=== PATIENT | female | born 1960 | race Caucasian/White ===

== ENCOUNTER 2021-07-09 12:46 | Inpatient (IN) | payer BC ==
[2021-07-09] MEDS ORDERED: SODIUM CHLORIDE 0.9% 1,000 ML IV STA (13:14)
[2021-07-09] MEDS ORDERED: VANCOMYCIN IV PER PHARMACY 1 EACH MISC MISCELLANE PRN (13:35)
--- NOTE | 2021-07-09 13:37 | ED ---
General Adult HPI - General Chief complaint: Extremity Injury, Lower Stated complaint: hypertensive, leg wound Time Seen by Provider: 07/09/21 13:01 Source: patient, EMS, RN notes reviewed Mode of arrival: EMS Limitations: no limitations - History of Present Illness Initial comments: Patient's a 61-year-old female presented to the emergency room today with a chief complaint of increased redness, swelling to the right lower extremity. She does admit to a wound that started approximately 2 weeks ago. She states that she delivered wrapped. She does admit that there secondary formed a blister. She states there is some redness. Patient denies any fever. She denies any complaints. She states she's been some drainage to the wound. Patient denies any recent fever, chills, shortness of breath, chest pain, back pain, abdominal pain, headaches or visual changes, or any other complaints. - Related Data Home Medications Medication Instructions Recorded Confirmed ALPRAZolam [Xanax] 0.25 mg PO DAILY 06/10/14 06/10/14 Albuterol Nebulized [Ventolin 1 inhalation INHALATION Q4HR PRN 06/10/14 06/10/14 Nebulized] Esomeprazole Magnesium [NexIUM] 40 mg PO DAILY 06/10/14 06/10/14 Insulin Glargine,Hum.rec.anlog 56 units INJ AC-BRKFST 06/10/14 06/10/14 [Lantus Solostar] Insulin Regular, Human [Humulin R] 20 unit INJ HS 06/10/14 06/10/14 Levothyroxine Sodium 175 mcg PO DAILY 06/10/14 06/10/14 Olmesartan/Hydrochlorothiazide 1 each PO DAILY 06/10/14 06/10/14 [Benicar Hct 40-12.5 mg Tablet] Tiotropium 18 Mcg/Puff [Spiriva] 1 puff INHALATION Q4HR PRN 06/10/14 06/10/14 glyBURIDE [Diabeta] 5 mg PO AC-BRKFST 06/10/14 06/10/14 hydroCHLOROthiazide [Hydrodiuril] 25 mg PO DAILY 06/10/14 06/10/14 Allergies Allergy/AdvReac Type Severity Reaction Status Date / Time amlodipine besylate Allergy Rash/Hives Verified 06/10/14 07:46 [From [facility]] azithromycin [From Zithromax] Allergy Unknown Verified 06/10/14 07:18 clindamycin Allergy Unknown Verified 06/10/14 07:18 codeine Allergy Nausea & Verified 06/10/14 06:27 Vomiting doxycycline Allergy Rash/Hives Verified 06/10/14 07:46 hydrochlorothiazide Allergy Rash/Hives Verified 06/10/14 07:46 [From Hyzatn] levofloxacin [From Levaquin] Allergy Unknown Verified 06/10/14 07:18 losartan potassium Allergy Unknown Verified 06/10/14 07:18 [From Hyzaar] Penicillins Allergy Rash/Hives Verified 06/10/14 03:28 Sulfa (Sulfonamide Allergy Unknown Verified 06/10/14 07:18 Antibiotics) Review of Systems ROS Statement: Those systems with pertinent positive or pertinent negative responses have been documented in the HPI. ROS Other: All systems not noted in ROS Statement are negative. Past Medical History Past Medical History: Asthma, Diabetes Mellitus, Fibromyalgia, GERD/Reflux, Hypertension, Thyroid Disorder History of Any Multi-Drug Resistant Organisms: MRSA Date of last positivie culture/infection: 2012 MDRO Source:: abd Past Surgical History: Appendectomy Additional Past Surgical History / Comment(s): bowel surgery, D&C, colostomy with reversile Past Psychological History: Anxiety Past Alcohol Use History: Rare Past Drug Use History: None Reported General Exam - General Exam Comments Initial Comments: General: The patient is awake and alert, in no distress, and does not appear acutely ill. Eye: extra-ocular movements are intact. There is normal conjunctiva bilaterally. No signs of icterus. Ears, nose, mouth and throat: There are moist mucous membranes and no oral lesions. Neck: The neck is supple Cardiovascular: There is a regular rate and rhythm. No murmur, rub or gallop is appreciated. Respiratory: respirations are non-labored, breath sounds are equal. Musculoskeletal: Normal ROM, no tenderness. Strength 5/5. Sensation intact. Pulses equal bilaterally 2+. Neurological: A&O x 3. CN II-XII intact, There are no obvious motor or sensory deficits. Coordination appears grossly intact. Speech is normal. Skin: Patient does have area of redness and swelling to the right lower extremity. Is circumferential. There is a blood blister next to a scabbed eschar wound measures approximately 5 cm across. No active drainage. Psychiatric: Cooperative, appropriate mood & affect, normal judgment. Limitations: no limitations Course Vital Signs 07/09/21 13:00 Temperature 98.6 F Pulse Rate 92 Respiratory 18 Rate Blood Pressure 185/95 O2 Sat by Pulse 96 Oximetry Medical Decision Making - Medical Decision Making X-ray reviewed is negative for any evidence of an osteomyelitis. Patient's labs been reviewed does show potassium 3.3. Patient given potassium supplement here in the emergency room. Patient was sent in by family physician for admission for cellulitis and diabetic wound. Patient started on Rocephin, think my severe in emergency room. Case discussed with admitting physician. Patient be admitted. She is aware the plan states understand. - Lab Data Result diagrams: 07/09/21 14:04 07/09/21 14:04 Lab Results 07/09/21 07/09/21 07/09/21 Range/Units 14:04 14:04 14:04 WBC 10.8 H (3.8-10.6) k/uL RBC 5.38 (3.80-5.40) m/uL Hgb 15.8 (11.4-16.0) gm/dL Hct 45.4 (34.0-46.0) % MCV 84.5 (80.0-100.0) fL MCH 29.3 (25.0-35.0) pg MCHC 34.7 (31.0-37.0) g/dL RDW 14.1 (11.5-15.5) % Plt Count 348 (150-450) k/uL MPV 8.1 Neutrophils % 83 % Lymphocytes % 12 % Monocytes % 2 % Eosinophils % 2 % Basophils % 1 % Neutrophils # 9.0 H (1.3-7.7) k/uL Lymphocytes # 1.2 (1.0-4.8) k/uL Monocytes # 0.2 (0-1.0) k/uL Eosinophils # 0.2 (0-0.7) k/uL Basophils # 0.1 (0-0.2) k/uL Sodium 137 (137-145) mmol/L Potassium 3.3 L (3.5-5.1) mmol/L Chloride 100 (98-107) mmol/L Carbon Dioxide 25 (22-30) mmol/L Anion Gap 12 mmol/L BUN 14 (7-17) mg/dL Creatinine 0.73 (0.52-1.04) mg/dL Est GFR (CKD-EPI)AfAm >90 (>60 ml/min/1.73 sqM) Est GFR (CKD-EPI)NonAf 89 (>60 ml/min/1.73 sqM) Glucose 144 H (74-99) mg/dL Plasma Lactic Acid Shen 1.2 (0.7-2.0) mmol/L Calcium 9.1 (8.4-10.2) mg/dL Disposition Clinical Impression: Cellulitis, Hypokalemia Disposition: ADMITTED IP TO THIS HOSP Condition: Stable Is patient prescribed a controlled substance at d/c from ED?: No Referrals: Marbin Serrano MD [Primary Care Provider] - 1-2 days Time of Disposition: 15:08
[2021-07-09] MEDS ORDERED: VANCOMYCIN 2,000 MG in SODIUM CHLORIDE 0.9% 500 ML 500 ML IVPB STA (13:41)
--- NOTE | 2021-07-09 14:05 | XR ---
EXAMINATION TYPE: XR tibia fibula RT DATE OF EXAM: 07/09/2021 COMPARISON: NONE HISTORY: Nonhealing wound TECHNIQUE: Two views are submitted. FINDINGS: The osseous structures are intact. The joint spaces are preserved. Diffuse soft tissue edema. Diffu se osteopenia. IMPRESSION: 1. No acute osseous abnormality. Soft tissue edema.
[2021-07-09 14:34] LABS: Basophils # (A) 0.1 k/uL (0-0.2); Basophils % (A) 1 %; Eosinophils # (A) 0.2 k/uL (0-0.7); Eosinophils % (A) 2 %; HCT 45.4 % (34.0-46.0); HGB 15.8 gm/dL (11.4-16.0); Lymphocytes # (A) 1.2 k/uL (1.0-4.8); Lymphocytes % (A) 12 %; MCH 29.3 pg (25.0-35.0); MCHC 34.7 g/dL (31.0-37.0); MCV 84.5 fL (80.0-100.0); Mean Platelet Volume 8.1; Monocytes # (A) 0.2 k/uL (0-1.0); Monocytes % (A) 2 %; Neutrophils % (A) 83 %; Platelet Count 348 k/uL (150-450); RBC 5.38 m/uL (3.80-5.40); RDW 14.1 % (11.5-15.5); WBC 10.8 k/uL (3.8-10.6)
[2021-07-09] MEDS ORDERED: NALOXONE 0.4 MG/ML 1 ML VIAL IV PRN (14:37)
[2021-07-09 14:52] LABS: African American GFR (CKD) >90 (>60 ml/min/1.73 sqM); Anion Gap 12 mmol/L; Blood Urea Nitrogen 14 mg/dL (7-17); Calcium 9.1 mg/dL (8.4-10.2); Carbon Dioxide 25 mmol/L (22-30); Chloride 100 mmol/L (98-107); Glucose 144 mg/dL (74-99); Non-African American GFR(CKD) 89 (>60 ml/min/1.73 sqM); Potassium 3.3 mmol/L (3.5-5.1); Sodium 137 mmol/L (137-145)
[2021-07-09] MEDS: ONDANSETRON 4 MG/2 ML VIAL IVP PRN (15:03)
[2021-07-09] MEDS ORDERED: POTASSIUM CHLORIDE ER 20 MEQ TAB.ER PO STA (15:06)
[2021-07-09] MEDS ORDERED: diphenhydrAMINE 25 MG CAP PO PRN (16:59)
[2021-07-09] MEDS ORDERED: ALBUTEROL NEBULIZED 2.5 MG/3 ML INHALATION PRN (16:59)
--- NOTE | 2021-07-09 17:12 | P.HPIM ---
<Jordan Hummel - Last Filed: 07/09/21 16:57> History of Present Illness H&P Date: 07/09/21 History of Presenting Illness: Patient is a 61-year-old female with a past medical history of asthma, hypertension, hypothyroidism, and insulin-dependent diabetes mellitus type 2. She presented to the emergency department with a chief complaint of right lower extremity wounds. Patient reports developing ulceration to right lower extremity approximately one month ago. She reports she was seen by her doctor place on an antibiotic and this seemed to improve, however over the past 2 weeks she has developed a second ulceration surrounded by significant redness and swelling. Patient states that she returned to her PCP and was instructed to come to the ER for further management. In addition to these ulcerations patient does report a subjective low-grade temp and hot flashes. Patient denies having any headache, lightheadedness, dizziness, chest pain, palpitations, shortness of breath, dyspnea with exertion, or experiencing any numbness/tingling/weakness in her extremities. She denies history of DVTs or any clotting disorders. In the emergency department patient was found to have mild leukocytosis with WBC count of 10.8 and an x-ray of right tib-fib negative for acute osseous abnormality showing no signs of osteomyelitis. Patient admitted under our services with consultation to vascular surgery and wound care. Review of systems: Pertinent positives and negatives as discussed in HPI, a complete review of systems was performed and all other systems are negative. Physical exam: Vital signs reviewed and stable. General: Nontoxic, no distress and appears stated age. Derm: Skin warm and dry, normal coloration for ethnicity. Necrotic Ulcerations right lower extremity with surrounding erythema and edema Head: Atraumatic, normocephalic and symmetric. Eyes: EOMs intact, no lid lag, and anicteric sclera Mouth: no lip lesions, mucus membranes moist Cardiovascular: regular rate and rhythm with normal S1S2, no murmur, positive posterior tibial pulses bilaterally, and cap refill < 2 seconds. Lungs: Respirations even, regular, and unlabored on room air. Lungs CTA bilater ally, no rhonchi, no rales, no wheezing, and no accessory muscle usage. Abdominal: soft, nontender to palpation, no guarding, no appreciable organomegaly Ext: ROM intact. No gross muscle atrophy, no edema, no contractures Neuro: Speech clear, face symmetrical and CN II-XII grossly intact with no noted focal neuro deficits Psych: Alert and oriented to person, place, time, and situation. Appropriate and pleasant affect. Assessment and Plan of Care: Ulcerations with surrounding cellulitis to right lower extremity, suspected venous insufficiency Bilateral lower extremity Dopplers to be completed Wound care IV antibiotics with vancomycin pending wound cultures. Consult to vascular surgery Wound cultures Hypokalemia Replaced, we will continue to monitor closely with repeat a.m. labs. Hypertension Monitor vital signs and continue daily medication regimen. Insulin-dependent diabetes mellitus type 2 Glycemic protocol with NovoLog sliding scale. Continue daily medication regimen with fixed dose and long acting. Hypothyroidism Continue daily medication regimen with levothyroxine. The patient is admitted with an anticipated greater than 2 midnight stay for evaluation of ulcerations of right lower extremity with surrounding cellulitis.. CODE STATUS: Full code DVT prophylaxis: Heparin Discussed with: Patient Anticipated discharge date: Clinical course to determine Anticipated discharge place: Home A total of 45 minutes was spent on the care of this complex patient more than 50% of the time was spent in counseling and care coordination. Past Medical History Past Medical History: Asthma, Diabetes Mellitus, Fibromyalgia, GERD/Reflux, Hypertension, Thyroid Disorder History of Any Multi-Drug Resistant Organisms: MRSA Date of last positivie culture/infection: 2012 MDRO Source:: abd Past Surgical History: Appendectomy Additional Past Surgical History / Comment(s): bowel surgery, D&C, colostomy with reversile Past Psychological History: Anxiety Past Alcohol Use History: Rare Past Drug Use History: None Reported Medications and Allergies Home Medications Medication Instructions Recorded Confirmed Type Albuterol Nebulized [Ventolin 3 ml INHALATION RT-Q4H PRN 06/10/14 07/09/21 History Nebulized] Tiotropium 18 Mcg/Puff [Spiriva] 1 puff INHALATION RT-DAILY 06/10/14 07/09/21 History hydroCHLOROthiazide [Hydrodiuril] 25 mg PO DAILY 06/10/14 07/09/21 History Albuterol Inhaler [Ventolin Hfa 1 puff INHALATION RT-QID PRN 07/09/21 07/09/21 History Inhaler] Chlorpheniramine Maleate 4 mg PO Q4H PRN 07/09/21 07/09/21 History [Chlor-Trimeton] Insulin Aspart [NovoLOG Flexpen] 20 units SQ AC-TID 07/09/21 07/09/21 History Insulin Detemir [Levemir Flextouch 70 units SQ HS 07/09/21 07/09/21 History Pen] Levothyroxine Sodium [Synthroid] 137 mcg PO DAILY 07/09/21 07/09/21 History diphenhydrAMINE [Benadryl] 25 mg PO Q4H PRN 07/09/21 07/09/21 History Allergies Allergy/AdvReac Type Severity Reaction Status Date / Time amlodipine besylate Allergy Rash/Hives Verified 07/09/21 15:59 [From Norvasc] azithromycin [From Zithromax] Allergy Unknown Verified 07/09/21 15:59 clindamycin Allergy Unknown Verified 07/09/21 15:59 codeine Allergy Nausea & Verified 07/09/21 15:59 Vomiting doxycycline Allergy Rash/Hives Verified 07/09/21 15:59 hydrochlorothiazide Allergy Rash/Hives Verified 07/09/21 15:59 [From Hyzaar] levofloxacin [From Levaquin] Allergy Unknown Verified 07/09/21 15:59 losartan potassium Allergy Unknown Verified 07/09/21 15:59 [From Hyzaar] Penicillins Allergy Rash/Hives Verified 07/09/21 15:59 Sulfa (Sulfonamide Allergy Unknown Verified 07/09/21 15:59 Antibiotics) Physical Exam Vitals: Vital Signs Temp Pulse Resp BP Pulse Ox 07/09/21 15:31 94 18 177/116 93 L 07/09/21 13:00 98.6 F 92 18 185/95 96 Intake and Output 07/09/21 07/09/21 07/09/21 06:59 14:59 22:59 Other: Weight 108.862 kg Results CBC & Chem 7: 07/09/21 14:04 07/09/21 14:04 Labs: Abnormal Lab Results - Last 24 Hours (Table) 07/09/21 07/09/21 Range/Units 14:04 14:04 WBC 10.8 H (3.8-10.6) k/uL Neutrophils # 9.0 H (1.3-7.7) k/uL Potassium 3.3 L (3.5-5.1) mmol/L Glucose 144 H (74-99) mg/dL <Ana Bolanos - Last Filed: 07/09/21 18:37> History of Present Illness Patient seen and evaluated by me independently. Patient was also seen by leroy SPIVEY he original author of this note. I am in agreement with the subjective, physical exam, and assessment and plan as documented with the addition/changes of my exam and assessment below. Gen: awake, alert HEENT: normocephalic, atraumatic, good hearing acuity, moist mucous membranes Resp: good air exchange, breathing comfortably with no accessory muscle use CVS: good distal perfusion x 4, GI: soft, NTTP, ND : no SPT, no CVAT, guaman catheter not present MSK: no pitting edema, no clubbing, 2 vascular insufficiency ulcers approximately 3 x 2 cm wide with eschar Neuro: non-focal, moving all extremities Psych: cooperative, euthymic mood Venous insufficiency ulcers of the right lower extremity Cellulitis Hypertension Hyperlipidemia Diabetes type 2 Plan: Lower extremity duplex Vancomycin, ceftriaxone Vascular surgery consult Wound care consult Follow labs ESR, CRP in the morning Follow-up A1c, TSH, lipid panel We'll start atorvastatin tomorrow after lipid panel drawn Low-dose sliding scale insulin Physical Exam Osteopathic Statement: *. No significant issues noted on an osteopathic structural exam other than those noted in the History and Physical/Consult. Vitals: Vital Signs Temp Pulse Resp BP Pulse Ox 07/09/21 17:55 97.6 F 91 18 197/101 94 L 07/09/21 17:37 80 18 07/09/21 17:29 77 16 07/09/21 15:31 94 18 177/116 93 L 07/09/21 13:00 98.6 F 92 18 185/95 96 Intake and Output 07/09/21 07/09/21 07/09/21 06:59 14:59 22:59 Other: Weight 108.862 kg Results CBC & Chem 7: 07/09/21 14:04 07/09/21 14:04 Labs: Abnormal Lab Results - Last 24 Hours (Table) 07/09/21 07/09/21 07/09/21 Range/Units 14:04 14:04 17:51 WBC 10.8 H (3.8-10.6) k/uL Neutrophils # 9.0 H (1.3-7.7) k/uL Potassium 3.3 L (3.5-5.1) mmol/L Glucose 144 H (74-99) mg/dL POC Glucose (mg/dL) 198 H (75-99) mg/dL
[2021-07-09] MEDS ORDERED: ACETAMINOPHEN TAB 325 MG TAB PO PRN (17:14)
[2021-07-09] MEDS: ALBUTEROL NEBULIZED 2.5 MG/3 ML INHALATION PRN ×2 (17:29→22:13)
[2021-07-09 17:54] LABS: Glucose,Whole Blood 198 mg/dL (75-99)
[2021-07-09] MEDS: INSULIN ASPART (NovoLOG) 100 UNIT/ML VIAL SQ SCH ×3 (18:18→22:22)
[2021-07-09] MEDS: HYDROcodone/APAP 5-325MG 1 EACH TAB PO PRN (19:58)
[2021-07-09 22:19] LABS: Glucose,Whole Blood 86 mg/dL (75-99)
[2021-07-09] MEDS: INSULIN DETEMIR (LEVEMIR) 100 UNIT/ML SYR SQ SCH (22:23)
[2021-07-10] MEDS: HYDROcodone/APAP 5-325MG 1 EACH TAB PO PRN ×4 (00:40→20:37)
[2021-07-10] MEDS: cloNIDine HCL 0.2 MG TAB PO PRN (00:41)
[2021-07-10] MEDS: HEPARIN SODIUM,PORCINE/PF 5,000 UNIT/0.5 ML SYRINGE SQ SCH ×3 (00:41→15:54)
[2021-07-10] MEDS: ONDANSETRON 4 MG/2 ML VIAL IVP PRN (00:44)
[2021-07-10] MEDS: ALBUTEROL NEBULIZED 2.5 MG/3 ML INHALATION PRN (02:55)
[2021-07-10] MEDS: VANCOMYCIN 1,750 MG in SODIUM CHLORIDE 0.9% 500 ML 500 ML IVPB SCH ×2 (03:41→16:23)
[2021-07-10] MEDS: LEVOTHYROXINE 137 MCG TAB PO SCH (06:12)
[2021-07-10 06:36] LABS: Basophils % (A) 0 %; Eosinophils # (A) 0.3 k/uL (0-0.7); Eosinophils % (A) 3 %; HCT 45.4 % (34.0-46.0); HGB 14.4 gm/dL (11.4-16.0); Lymphocytes # (A) 1.3 k/uL (1.0-4.8); Lymphocytes % (A) 11 %; MCHC 31.7 g/dL (31.0-37.0); MCV 88.3 fL (80.0-100.0); Mean Platelet Volume 7.6; Monocytes # (A) 0.4 k/uL (0-1.0); Monocytes % (A) 3 %; Neutrophils # (A) 9.8 k/uL (1.3-7.7); Neutrophils % (A) 82 %; Platelet Count 337 k/uL (150-450); RBC 5.14 m/uL (3.80-5.40); RDW 13.9 % (11.5-15.5)
[2021-07-10 07:03] LABS: Glucose,Whole Blood 53 mg/dL (75-99)
[2021-07-10] MEDS: IPRATROPIUM 0.5 MG/2.5 ML NEBU INHALATION SCH ×4 (07:09→19:40)
[2021-07-10 07:21] LABS: Glucose,Whole Blood 81 mg/dL (75-99)
[2021-07-10] MEDS: hydroCHLOROthiazide 25 MG TAB PO SCH (08:03)
[2021-07-10 08:45] LABS: Glucose,Whole Blood 81 mg/dL (75-99)
[2021-07-10] MEDS: INSULIN ASPART (NovoLOG) 100 UNIT/ML VIAL SQ SCH ×7 (08:54→20:37)
[2021-07-10] MEDS: HYDROmorphone 0.5 MG/0.5 ML SYRINGE IVP PRN (09:57)
[2021-07-10 11:51] LABS: Glucose,Whole Blood 82 mg/dL (75-99)
--- NOTE | 2021-07-10 11:52 | P.PN ---
<Jordan Hummel - Last Filed: 07/10/21 11:40> Subjective Progress Note Date: 07/10/21 Hospital course: Patient is a 61-year-old female with a past medical history of asthma, hyperte nsion, hypothyroidism, and insulin-dependent diabetes mellitus type 2. She presented to the emergency department with a chief complaint of right lower extremity wounds. Patient reports developing ulceration to right lower extremity approximately one month ago. She reports she was seen by her doctor place on an antibiotic and this seemed to improve, however over the past 2 weeks she has developed a second ulceration surrounded by significant redness and swelling. Patient states that she returned to her PCP and was instructed to come to the ER for further management. In addition to these ulcerations patient does report a subjective low-grade temp and hot flashes. Patient denies having any headache, lightheadedness, dizziness, chest pain, palpitations, shortness of breath, dyspnea with exertion, or experiencing any numbness/tingling/weakness in her extremities. She denies history of DVTs or any clotting disorders. In the emergency department patient was found to have mild leukocytosis with WBC count of 10.8 and an x-ray of right tib-fib negative for acute osseous abnormality sadie wing no signs of osteomyelitis. Patient admitted under our services with consultation to vascular surgery and wound care. Being treated with IV antibiotics vancomycin and Rocephin. Physical exam: Patient was seen and fully evaluated at the bedside this morning. Bilateral lower extremity Dopplers were being completed during time of assessment. Patient reports pain is not controlled with [place] at this time. Additional orders placed for Dilaudid 0.5 mg every 6 hours for additional assistance with pain management. Patient denies having any further complaints at this time including headache, lightheadedness, chest pain, palpitations, shortness of breath, abdominal pain, nausea, or vomiting. Awaiting further recommendations from vascular surgery at this time. Wound cultures were obtained and sent to lab for analysis, awaiting results. Vital signs reviewed and stable. General: Nontoxic, no distress and appears stated age. Derm: Skin warm and dry, normal coloration for ethnicity. Necrotic Ulcerations right lower extremity carrillo and right lateral lower carrillo with surrounding erythema and edema Head: Atraumatic, normocephalic and symmetric. Eyes: EOMs intact, no lid lag, and anicteric sclera Mouth: no lip lesions, mucus membranes moist Cardiovascular: regular rate and rhythm with normal S1S2, no murmur, positive posterior tibial pulses bilaterally, and cap refill < 2 seconds. Lungs: Respirations even, regular, and unlabored on room air. Lungs CTA bilaterally, no rhonchi, no rales, no wheezing, and no accessory muscle usage. Abdominal: soft, nontender to palpation, no guarding, no appreciable organomegaly Ext: ROM intact. No gross muscle atrophy, BLE edema non pitting worse on right venous discoloration. Neuro: Speech clear, face symmetrical and CN II-XII grossly intact with no noted focal neuro deficits Psych: Alert and oriented to person, place, time, and situation. Appropriate and pleasant affect. Assessment and Plan of Care: Venous Insufficiency Ulcerations with surrounding cellulitis to right lower extremity Bilateral lower extremity Dopplers completed, awaiting results Wound care IV antibiotics with vancomycin and Rocephin pending wound cultures. Consult to vascular surgery Wound cultures Hypokalemia Replaced, we will continue to monitor closely with repeat a.m. labs. Hypertension Monitor vital signs and continue daily medication regimen. Insulin-dependent diabetes mellitus type 2 Glycemic protocol with NovoLog sliding scale. Continue daily medication regimen with fixed dose and long acting. Hypothyroidism Continue daily medication regimen with levothyroxine. CODE STATUS: Full code DVT prophylaxis: Heparin Discussed with: Patient Anticipated discharge date: Clinical course to determine Anticipated discharge place: Home A total of 45 minutes was spent on the care of this complex patient more than 50% of the time was spent in counseling and care coordination. Objective - Vital Signs Vital signs: Vital Signs Temp 98.1 F 07/10/21 06:20 Pulse 85 07/10/21 08:02 Resp 16 07/10/21 07:20 BP 185/92 07/10/21 08:02 Pulse Ox 95 07/10/21 06:20 Intake & Output 07/09/21 07/10/21 07/10/21 18:59 06:59 18:59 Intake Total 100 Balance 100 Weight 108.862 kg 108.862 kg Intake: Oral 100 Other: # Voids 1 - Labs CBC & Chem 7: 07/10/21 05:45 07/09/21 14:04 Labs: Abnormal Lab Results - Last 24 Hours (Table) 07/09/21 07/09/21 07/09/21 Range/Units 14:04 14:04 14:04 WBC 10.8 H (3.8-10.6) k/uL Neutrophils # 9.0 H (1.3-7.7) k/uL ESR (0-30) mm/Hr Potassium 3.3 L (3.5-5.1) mmol/L Glucose 144 H (74-99) mg/dL POC Glucose (mg/dL) (75-99) mg/dL C-Reactive Protein 7.6 H (<1.0) mg/dL 07/09/21 07/09/21 07/10/21 Range/Units 17:51 18:51 05:45 WBC 12.0 H (3.8-10.6) k/uL Neutrophils # 9.8 H (1.3-7.7) k/uL ESR 50 H (0-30) mm/Hr Potassium (3.5-5.1) mmol/L Glucose (74-99) mg/dL POC Glucose (mg/dL) 198 H (75-99) mg/dL C-Reactive Protein (<1.0) mg/dL 07/10/21 Range/Units 06:52 WBC (3.8-10.6) k/uL Neutrophils # (1.3-7.7) k/uL ESR (0-30) mm/Hr Potassium (3.5-5.1) mmol/L Glucose (74-99) mg/dL POC Glucose (mg/dL) 53 L (75-99) mg/dL C-Reactive Protein (<1.0) mg/dL Microbiology - Last 24 Hours (Table) 07/09/21 18:29 Gram Stain - Preliminary Leg - Right Wound Culture - Preliminary 07/09/21 18:29 Anaerobic Culture - Preliminary Leg - Right <Ana Bolanos - Last Filed: 07/10/21 18:32> Subjective I reviewed the documentation as provided by the PATRIC above, who is the original author of this note. I agree with the documented assessment and plan, with the following changes: None Objective - Vital Signs Vital signs: Vital Signs Temp 98.8 F 07/10/21 11:18 Pulse 89 07/10/21 15:41 Resp 18 07/10/21 11:18 BP 171/98 07/10/21 11:18 Pulse Ox 92 L 07/10/21 11:18 Intake & Output 07/09/21 07/10/21 07/10/21 18:59 06:59 18:59 Intake Total 100 2049 Balance 100 2049 Weight 108.862 kg 108.862 kg 108.862 kg Intake: Intake, IV Titration 1450 Amount Sodium Chloride 0.9% 1, 900 000 ml @ 75 mls/hr IV . [id number] STA Rx#:[id number] Vancomycin 1,750 mg In 500 Sodium Chloride 0.9% 500 ml 500 ml @ 167 mls/hr IVPB Q12H NIKI Rx#: [id number] cefTRIAXone 1 gm In 50 Sodium Chloride 0.9% 50 ml @ 100 mls/hr IVPB Q24HR NIKI Rx#:[id number] Oral 100 600 Other: # Voids 1 5 - Labs CBC & Chem 7: 07/10/21 05:45 07/10/21 05:45 Labs: Abnormal Lab Results - Last 24 Hours (Table) 07/09/21 07/09/21 07/10/21 Range/Units 14:04 18:51 05:45 WBC (3.8-10.6) k/uL Neutrophils # (1.3-7.7) k/uL ESR 50 H (0-30) mm/Hr Potassium (3.5-5.5) mmol/L Anion Gap (4.00-12.00) mmol/L Glucose (70-110) mg/dL POC Glucose (mg/dL) (75-99) mg/dL Hemoglobin A1c 7.7 H (4.0-6.0) % Calcium (8.7-10.3) mg/dL C-Reactive Protein 7.6 H (<1.0) mg/dL 07/10/21 07/10/21 07/10/21 Range/Units 05:45 05:45 06:52 WBC 12.0 H (3.8-10.6) k/uL Neutrophils # 9.8 H (1.3-7.7) k/uL ESR (0-30) mm/Hr Potassium 3.3 L (3.5-5.5) mmol/L Anion Gap 17.10 H (4.00-12.00) mmol/L Glucose 61 L (70-110) mg/dL POC Glucose (mg/dL) 53 L (75-99) mg/dL Hemoglobin A1c (4.0-6.0) % Calcium 8.3 L (8.7-10.3) mg/dL C-Reactive Protein (<1.0) mg/dL 07/10/21 Range/Units 16:54 WBC (3.8-10.6) k/uL Neutrophils # (1.3-7.7) k/uL ESR (0-30) mm/Hr Potassium (3.5-5.5) mmol/L Anion Gap (4.00-12.00) mmol/L Glucose (70-110) mg/dL POC Glucose (mg/dL) 167 H (75-99) mg/dL Hemoglobin A1c (4.0-6.0) % Calcium (8.7-10.3) mg/dL C-Reactive Protein (<1.0) mg/dL Microbiology - Last 24 Hours (Table) 07/09/21 14:04 Blood Culture - Preliminary Blood No Growth after 24 hours 07/09/21 18:29 Gram Stain - Preliminary Leg - Right Wound Culture - Preliminary 07/09/21 18:29 Anaerobic Culture - Preliminary Leg - Right
--- NOTE | 2021-07-10 12:16 | US ---
EXAMINATION TYPE: US venous doppler duplex LE BI DATE OF EXAM: 07/10/2021 9:25 AM COMPARISON: 03/24/2014 CLINICAL HISTORY: venous insufficiency, ulcers. SIDE PERFORMED: Bilateral TECHNIQUE: The lower extremity deep venous system is examined utilizing real time linear array sonog ashley with graded compression, doppler sonography and color-flow sonography. VESSELS IMAGED: Common Femoral Vein Deep Femoral Vein Greater Saphenous Vein * Femoral Vein Popliteal Vein Small Saphenous Vein * Proximal Calf Veins (* superficial vessels) Very difficult exam due to patient body habitus, limited mobility, and patients pain. Right Leg: Negative for DVT Left Leg: Negative for DVT IMPRESSION: 1. Bilateral lower extremity ultrasound negative for deep venous thrombosis
--- NOTE | 2021-07-10 12:34 | P.CONS ---
History of Present Illness - Reason for Consult Consult date: 07/10/21 wound care - History of Present Illness This is a 61-year-old patient being seen by wound care on [address] for a nonhealing ulceration to the right lower extremity. Patient states the ulcerations have been there for approximately 2 months. She states that they begin to heal and then reopened. Patient has 2 ulcerations to the anterior medial aspect of the right lower extremity distal. The ulcerations measures combined approximately 4 x 8 x 0.1 cm. There is an eschar cap to the ulceration with no granulation seen within the wound bed. The periwound shows erythema. Patient is scheduled for a possible surgical debridement today with vascular surgery. Past medical history is significant for venous insufficiency, diabetes, asthma, fibromyalgia, GERD, hypertension, hypothyroidism. Patient is an every day smoker. Review Of Systems: Constitutional: No fever, no chills, no night sweats. No weight change. No weakness, fatigue or lethargy. No daytime sleepiness. Integumentary:reports wounds, no lesions. No rash or pruritus. No unusual bruising. No change in hair or nails. Physical exam: General Appearance: Alert, cooperative, no distress, appears stated age. Skin: See HPI all other Skin color, texture, tugor normal, no rashes or lesions. Neurologic: Alert oriented x3 Assessment: 1. Chronic hypertension with venous inserted deficiency with a ulceration to the right lower extremity 2. Diabetes a skin ulcer 3. Nicotine dependence Plan: 1. Apply Santyl, saline moistened gauze, dry gauze, rolled gauze secured with paper tape. Wrap with Rm wrap for compression. Start dressings after assessment by vascular surgery. If a surgical debridement is planned start dressings postop day 1. Patient would benefit from advanced wound care and outpatient setting. We'll be happy to see her upon discharge. Thank you for the consultation any questions please contact the wound care center DNP note has been reviewed and discussed with Dr. Sanz and the impression and plan of care has been directed as dictated. Past Medical History Past Medical History: Asthma, Diabetes Mellitus, Fibromyalgia, GERD/Reflux, Hypertension, Thyroid Disorder History of Any Multi-Drug Resistant Organisms: MRSA Year Discovered:: 2012 MDRO Source:: abd Past Surgical History: Appendectomy Additional Past Surgical History / Comment(s): bowel surgery, D&C, colostomy with reversile Smoking Status: Current some day smoker, Never smoker Medications and Allergies Home Medications Medication Instructions Recorded Confirmed Type Albuterol Nebulized [Ventolin 3 ml INHALATION RT-Q4H PRN 06/10/14 07/09/21 History Nebulized] Tiotropium 18 Mcg/Puff [Spiriva] 1 puff INHALATION RT-DAILY 06/10/14 07/09/21 History hydroCHLOROthiazide [Hydrodiuril] 25 mg PO DAILY 06/10/14 07/09/21 History Albuterol Inhaler [Ventolin Hfa 1 puff INHALATION RT-QID PRN 07/09/21 07/09/21 History Inhaler] Chlorpheniramine Maleate 4 mg PO Q4H PRN 07/09/21 07/09/21 History [Chlor-Trimeton] Insulin Aspart [NovoLOG Flexpen] 20 units SQ AC-TID 07/09/21 07/09/21 History Insulin Detemir [Levemir Flextouch 70 units SQ HS 07/09/21 07/09/21 History Pen] Levothyroxine Sodium [Synthroid] 137 mcg PO DAILY 07/09/21 07/09/21 History diphenhydrAMINE [Benadryl] 25 mg PO Q4H PRN 07/09/21 07/09/21 History Allergies Allergy/AdvReac Type Severity Reaction Status Date / Time amlodipine besylate Allergy Rash/Hives Verified 07/09/21 15:59 [From Norvasc] azithromycin [From Zithromax] Allergy Unknown Verified 07/09/21 15:59 clindamycin Allergy Unknown Verified 07/09/21 15:59 codeine Allergy Nausea & Verified 07/09/21 15:59 Vomiting doxycycline Allergy Rash/Hives Verified 07/09/21 15:59 hydrochlorothiazide Allergy Rash/Hives Verified 07/09/21 15:59 [From Hyzaar] levofloxacin [From Levaquin] Allergy Unknown Verified 07/09/21 15:59 losartan potassium Allergy Unknown Verified 07/09/21 15:59 [From Hyzaar] Penicillins Allergy Rash/Hives Verified 07/09/21 15:59 Sulfa (Sulfonamide Allergy Unknown Verified 07/09/21 15:59 Antibiotics) Physical Exam Vitals: Vital Signs Temp Pulse Pulse Pulse Resp BP BP 07/10/21 11:58 90 07/10/21 11:48 88 07/10/21 11:18 98.8 F 89 18 07/10/21 08:02 85 185/92 07/10/21 07:20 85 16 07/10/21 07:09 85 16 07/10/21 06:20 98.1 F 88 20 142/84 07/10/21 03:06 96 07/10/21 02:57 98 07/10/21 01:42 157/75 07/10/21 00:27 98.1 F 95 16 194/82 07/09/21 23:07 91 18 186/92 07/09/21 22:13 76 07/09/21 20:28 90 18 190/105 07/09/21 17:55 97.6 F 91 18 197/101 07/09/21 17:37 80 18 07/09/21 17:29 77 16 07/09/21 15:31 94 18 177/116 07/09/21 13:00 98.6 F 92 18 185/95 BP Pulse Ox 07/10/21 11:58 07/10/21 11:48 07/10/21 11:18 171/98 92 L 07/10/21 08:02 07/10/21 07:20 07/10/21 07:09 07/10/21 06:20 95 07/10/21 03:06 07/10/21 02:57 07/10/21 01:42 07/10/21 00:27 94 L 07/09/21 23:07 97 07/09/21 22:13 07/09/21 20:28 96 07/09/21 17:55 94 L 07/09/21 17:37 07/09/21 17:29 07/09/21 15:31 93 L 07/09/21 13:00 96 Intake and Output 07/09/21 07/10/21 07/10/21 22:59 06:59 14:59 Intake Total 100 Balance 100 Intake: Oral 100 Other: # Voids 1 1 Weight 108.862 kg Results CBC & Chem 7: 07/10/21 05:45 07/09/21 14:04 Labs: Abnormal Lab Results - Last 24 Hours (Table) 07/09/21 07/09/21 07/09/21 Range/Units 14:04 14:04 14:04 WBC 10.8 H (3.8-10.6) k/uL Neutrophils # 9.0 H (1.3-7.7) k/uL ESR (0-30) mm/Hr Potassium 3.3 L (3.5-5.1) mmol/L Glucose 144 H (74-99) mg/dL POC Glucose (mg/dL) (75-99) mg/dL C-Reactive Protein 7.6 H (<1.0) mg/dL 07/09/21 07/09/21 07/10/21 Range/Units 17:51 18:51 05:45 WBC 12.0 H (3.8-10.6) k/uL Neutrophils # 9.8 H (1.3-7.7) k/uL ESR 50 H (0-30) mm/Hr Potassium (3.5-5.1) mmol/L Glucose (74-99) mg/dL POC Glucose (mg/dL) 198 H (75-99) mg/dL C-Reactive Protein (<1.0) mg/dL 07/10/21 Range/Units 06:52 WBC (3.8-10.6) k/uL Neutrophils # (1.3-7.7) k/uL ESR (0-30) mm/Hr Potassium (3.5-5.1) mmol/L Glucose (74-99) mg/dL POC Glucose (mg/dL) 53 L (75-99) mg/dL C-Reactive Protein (<1.0) mg/dL Microbiology - Last 24 Hours (Table) 07/09/21 18:29 Gram Stain - Preliminary Leg - Right Wound Culture - Preliminary 07/09/21 18:29 Anaerobic Culture - Preliminary Leg - Right Assessment and Plan (1) Chronic venous hypertension w/ulcer and inflammation involv right side Current Visit: Yes Status: Acute Code(s): I87.331 - CHRONIC VENOUS HTN W ULCER AND INFLAMMATION OF R LOW EXTREM; L97.919 - NON-PRS CHRONIC ULC UNSP PRT OF R LOW LEG W UNSP SEVERITY SNOMED Code(s): 791416586 (2) Diabetes with skin ulcer Current Visit: Yes Status: Acute Code(s): E11.622 - TYPE 2 DIABETES MELLITUS WITH OTHER SKIN ULCER; L98.499 - NON-PRESSURE CHRONIC ULCER OF SKIN OF SITES W UNSP SEVERITY SNOMED Code(s): 32702643 (3) Non-pressure chronic ulcer of right calf with fat layer exposed Current Visit: Yes Status: Acute Code(s): L97.212 - NON-PRESSURE CHRONIC ULCER OF RIGHT CALF W FAT LAYER EXPOSED SNOMED Code(s): 60891314672788947 (4) Nicotine dependence Current Visit: Yes Status: Acute Code(s): F17.200 - NICOTINE DEPENDENCE, UNSPECIFIED, UNCOMPLICATED SNOMED Code(s): 39843246
--- NOTE | 2021-07-10 13:41 | P.GSCN ---
History of Present Illness Consult date: 07/10/21 Reason for Consult: Vascular insufficiency, lower extremity wound History of present illness: This a 61-year-old female who presented to the emergency department with increased redness swelling and pain to the right lower extremity. states she started with a first ulcer about 1 month ago. She was trying to treat it at home and got it cleaned up and then she states that it was reinfected. States she had a blood blister. Denies any fevers or chills. There is been some drainage but no odor. She denies any chest pain, shortness of breath, abdominal pain, nausea, or vomiting. Patient had an x-ray that showed no acute osseous ab normality. Some soft tissue edema. She also underwent venous Doppler of bilateral lower extremities which was negative for DVT. WBC 12.0 hemoglobin 14 sed rate 50 CRP 7.6. Review of Systems 14 point review of systems was completed and all pertinent positives and negati ves as stated in the HPI. Past Medical History Past Medical History: Asthma, Diabetes Mellitus, Fibromyalgia, GERD/Reflux, Hypertension, Thyroid Disorder History of Any Multi-Drug Resistant Organisms: MRSA Year Discovered:: 2013 MDRO Source:: abd Past Surgical History: Appendectomy Additional Past Surgical History / Comment(s): bowel surgery, D&C, colostomy with reversile Smoking Status: Current some day smoker, Never smoker Medications and Allergies Home Medications Medication Instructions Recorded Confirmed Type Albuterol Nebulized [Ventolin 3 ml INHALATION RT-Q4H PRN 06/10/14 07/09/21 History Nebulized] Tiotropium 18 Mcg/Puff [Spiriva] 1 puff INHALATION RT-DAILY 06/10/14 07/09/21 History hydroCHLOROthiazide [Hydrodiuril] 25 mg PO DAILY 06/10/14 07/09/21 History Albuterol Inhaler [Ventolin Hfa 1 puff INHALATION RT-QID PRN 07/09/21 07/09/21 History Inhaler] Chlorpheniramine Maleate 4 mg PO Q4H PRN 07/09/21 07/09/21 History [Chlor-Trimeton] Insulin Aspart [NovoLOG Flexpen] 20 units SQ AC-TID 07/09/21 07/09/21 History Insulin Detemir [Levemir Flextouch 70 units SQ HS 07/09/21 07/09/21 History Pen] Levothyroxine Sodium [Synthroid] 137 mcg PO DAILY 07/09/21 07/09/21 History diphenhydrAMINE [Benadryl] 25 mg PO Q4H PRN 07/09/21 07/09/21 History Allergies Allergy/AdvReac Type Severity Reaction Status Date / Time amlodipine besylate Allergy Rash/Hives Verified 07/09/21 15:59 [From Norvasc] azithromycin [From Zithromax] Allergy Unknown Verified 07/09/21 15:59 clindamycin Allergy Unknown Verified 07/09/21 15:59 codeine Allergy Nausea & Verified 07/09/21 15:59 Vomiting doxycycline Allergy Rash/Hives Verified 07/09/21 15:59 hydrochlorothiazide Allergy Rash/Hives Verified 07/09/21 15:59 [From Hyzaar] levofloxacin [From Levaquin] Allergy Unknown Verified 07/09/21 15:59 losartan potassium Allergy Unknown Verified 07/09/21 15:59 [From Hyzaar] Penicillins Allergy Rash/Hives Verified 07/09/21 15:59 Sulfa (Sulfonamide Allergy Unknown Verified 07/09/21 15:59 Antibiotics) Surgical - Exam Vital Signs Temp Pulse Resp BP Pulse Ox 98.6 F 92 18 185/95 96 07/09/21 13:00 07/09/21 13:00 07/09/21 13:00 07/09/21 13:00 07/09/21 13:00 Results - Labs 07/10/21 05:45 07/09/21 14:04 Abnormal Lab Results - Last 24 Hours (Table) 07/09/21 07/09/21 07/09/21 Range/Units 14:04 14:04 14:04 WBC 10.8 H (3.8-10.6) k/uL Neutrophils # 9.0 H (1.3-7.7) k/uL ESR (0-30) mm/Hr Potassium 3.3 L (3.5-5.1) mmol/L Glucose 144 H (74-99) mg/dL POC Glucose (mg/dL) (75-99) mg/dL C-Reactive Protein 7.6 H (<1.0) mg/dL 07/09/21 07/09/21 07/10/21 Range/Units 17:51 18:51 05:45 WBC 12.0 H (3.8-10.6) k/uL Neutrophils # 9.8 H (1.3-7.7) k/uL ESR 50 H (0-30) mm/Hr Potassium (3.5-5.1) mmol/L Glucose (74-99) mg/dL POC Glucose (mg/dL) 198 H (75-99) mg/dL C-Reactive Protein (<1.0) mg/dL 07/10/21 Range/Units 06:52 WBC (3.8-10.6) k/uL Neutrophils # (1.3-7.7) k/uL ESR (0-30) mm/Hr Potassium (3.5-5.1) mmol/L Glucose (74-99) mg/dL POC Glucose (mg/dL) 53 L (75-99) mg/dL C-Reactive Protein (<1.0) mg/dL Microbiology - Last 24 Hours (Table) 07/09/21 18:29 Anaerobic Culture - Preliminary Leg - Right 07/09/21 18:29 Wound Culture - Preliminary Leg - Right Diabetes panel 07/09/21 Range/Units 14:04 Sodium 137 (137-145) mmol/L Potassium 3.3 L (3.5-5.1) mmol/L Chloride 100 (98-107) mmol/L Carbon Dioxide 25 (22-30) mmol/L BUN 14 (7-17) mg/dL Creatinine 0.73 (0.52-1.04) mg/dL Glucose 144 H (74-99) mg/dL Calcium 9.1 (8.4-10.2) mg/dL Calcium panel 07/09/21 Range/Units 14:04 Calcium 9.1 (8.4-10.2) mg/dL Pituitary panel 07/09/21 Range/Units 14:04 Sodium 137 (137-145) mmol/L Potassium 3.3 L (3.5-5.1) mmol/L Chloride 100 (98-107) mmol/L Carbon Dioxide 25 (22-30) mmol/L BUN 14 (7-17) mg/dL Creatinine 0.73 (0.52-1.04) mg/dL Glucose 144 H (74-99) mg/dL Calcium 9.1 (8.4-10.2) mg/dL Adrenal panel 10/12/21 Range/Units 14:04 Sodium 137 (137-145) mmol/L Potassium 3.3 L (3.5-5.1) mmol/L Chloride 100 (98-107) mmol/L Carbon Dioxide 25 (22-30) mmol/L BUN 14 (7-17) mg/dL Creatinine 0.73 (0.52-1.04) mg/dL Glucose 144 H (74-99) mg/dL Calcium 9.1 (8.4-10.2) mg/dL Assessment and Plan Assessment: 1. Diabetic right lower extremity ulcer 2. Venous insufficiency 3. Diabetes Mellitus Plan: 1. Nothing by mouth 2. Continue IV antibiotics 3. Patient scheduled to go to the operating room for debridement of the right lower extremity 4. Agree with wound care consult 4. Agree with wound care consult Thank you for this consultation, and allowing us take part in the plan of care of your patient during his hospital stay The impression and plan of care has been dictated as directed. Dr. Malik I performed a history and examination of this patient, discussed the same with the dictator. I agree with the dictator's note ,documented as a scribe. Any additional findings or plans will be noted.
[2021-07-10 14:47] VITALS: BMI 41.1
[2021-07-10 17:03] LABS: Glucose,Whole Blood 167 mg/dL (75-99)
[2021-07-10 17:28] LABS: African American GFR (CKD) 93.8 (60.0-200.0); Anion Gap 17.1 mmol/L (4.00-12.00); BUN/Creat Ratio 14.7 Ratio (12.00-20.00); Blood Urea Nitrogen 11.6 mg/dL (9.0-27.0); Calcium 8.3 mg/dL (8.7-10.3); Carbon Dioxide 21.8 mmol/L (21.6-31.8); Chol/HDL Ratio 3.45 Ratio; HDL Cholesterol 44.1 mg/dL (40.00-60.00); LDL Cholesterol,Calculated 86.5 mg/dL (0.0-131.0); Non-African American GFR(CKD) 80.9 (60.0-200.0); Potassium 3.3 mmol/L (3.5-5.5); VLDL Calculation 21.4 mg/dL (5.00-40.00)
[2021-07-10 20:10] LABS: Glucose,Whole Blood 163 mg/dL (75-99)
[2021-07-10] MEDS: INSULIN DETEMIR (LEVEMIR) 100 UNIT/ML SYR SQ SCH (20:36)
[2021-07-11] MEDS: HYDROmorphone 0.5 MG/0.5 ML SYRINGE IVP PRN ×2 (02:21→17:28)
[2021-07-11] MEDS: VANCOMYCIN 1,750 MG in SODIUM CHLORIDE 0.9% 500 ML 500 ML IVPB SCH ×2 (03:56→16:04)
[2021-07-11] MEDS: LEVOTHYROXINE 137 MCG TAB PO SCH (06:08)
[2021-07-11 06:59] LABS: Glucose,Whole Blood 121 mg/dL (75-99)
[2021-07-11] MEDS: IPRATROPIUM 0.5 MG/2.5 ML NEBU INHALATION SCH ×4 (07:06→19:40)
[2021-07-11 07:50] LABS: ALT 13 U/L (4-34); AST 20 U/L (14-36); African American GFR (CKD) >90 (>60 ml/min/1.73 sqM); Albumin/Globulin Ratio 0.9; Alkaline Phosphatase 157 U/L (38-126); Anion Gap 7 mmol/L; Blood Urea Nitrogen 9 mg/dL (7-17); Calcium 8.3 mg/dL (8.4-10.2); Carbon Dioxide 30 mmol/L (22-30); Chloride 99 mmol/L (98-107); Globulin 3.4 g/dL; Glucose 135 mg/dL (74-99); Non-African American GFR(CKD) >90 (>60 ml/min/1.73 sqM); Potassium 3.3 mmol/L (3.5-5.1); Sodium 136 mmol/L (137-145); Total Bilirubin 0.3 mg/dL (0.2-1.3); Total Protein 6.4 g/dL (6.3-8.2)
[2021-07-11] MEDS: INSULIN ASPART (NovoLOG) 100 UNIT/ML VIAL SQ SCH ×7 (08:15→22:23)
[2021-07-11] MEDS: HYDROcodone/APAP 5-325MG 1 EACH TAB PO PRN ×3 (08:16→23:18)
[2021-07-11] MEDS: hydroCHLOROthiazide 25 MG TAB PO SCH (08:18)
[2021-07-11] MEDS: HEPARIN SODIUM,PORCINE/PF 5,000 UNIT/0.5 ML SYRINGE SQ SCH ×3 (08:19→16:04)
[2021-07-11] MEDS: COLLAGENASE 250 UNIT/GM OINTMENT 30 GM TUBE TOPICAL SCH (08:19)
[2021-07-11 11:30] LABS: Glucose,Whole Blood 110 mg/dL (75-99)
[2021-07-11] MEDS ORDERED: POTASSIUM CHLORIDE ER 20 MEQ TAB.ER PO STA (11:36)
--- NOTE | 2021-07-11 11:43 | P.PN ---
<Jordan Hummel - Last Filed: 07/11/21 12:19> Subjective Progress Note Date: 07/11/21 Hospital course: Patient is a 61-year-old female with a past medical history of asthma, hyperte nsion, hypothyroidism, and insulin-dependent diabetes mellitus type 2. She presented to the emergency department with a chief complaint of right lower extremity wounds. Patient reports developing ulceration to right lower extremity approximately one month ago. She reports she was seen by her doctor place on an antibiotic and this seemed to improve, however over the past 2 weeks she has developed a second ulceration surrounded by significant redness and swelling. Patient states that she returned to her PCP and was instructed to come to the ER for further management. In addition to these ulcerations patient does report a subjective low-grade temp and hot flashes. Patient denies having any headache, lightheadedness, dizziness, chest pain, palpitations, shortness of breath, dyspnea with exertion, or experiencing any numbness/tingling/weakness in her extremities. She denies history of DVTs or any clotting disorders. In the emergency department patient was found to have mild leukocytosis with WBC count of 10.8 and an x-ray of right tib-fib negative for acute osseous abnormality sadie wing no signs of osteomyelitis. Patient admitted under our services with consultation to vascular surgery and wound care. Being treated with IV antibiotics vancomycin and Rocephin. Physical exam: Patient was seen and fully evaluated at the bedside this morning. Patient reports currently lower extremity pain is controlled at this time. Tentative Plans for OR later this afternoon for debridement of wounds. Bilateral lower extremity Dopplers were negative for DVTs. Wound cultures showing preliminary results of presumptive MRSA, patient remains on IV vancomycin and Rocephin pending final culture results and sensitivity report. Infectious disease consulted at this time as patient will likely need IV antibiotics upon discharge if final wound cultures are positive for MRSA. Patient denies having any further complaints at this time including headache, lightheadedness, chest pain, palpitations, shortness of breath, abdominal pain, nausea, or vomiting. Vital signs reviewed and stable. General: Nontoxic, no distress and appears stated age. Derm: Skin warm and dry, normal coloration for ethnicity. Necrotic Ulcerations right lower extremity carrillo and right lateral lower carrillo with surrounding erythema and edema/dressing in place, clean dry and intact. Head: Atraumatic, normocephalic and symmetric. Eyes: EOMs intact, no lid lag, and anicteric sclera Mouth: no lip lesions, mucus membranes moist Cardiovascular: regular rate and rhythm with normal S1S2, no murmur, positive posterior tibial pulses bilaterally, and cap refill < 2 seconds. Lungs: Respirations even, regular, and unlabored on room air. Lungs CTA bilaterally, no rhonchi, no rales, no wheezing, and no accessory muscle usage. Abdominal: soft, nontender to palpation, no guarding, no appreciable organomegaly Ext: ROM intact. No gross muscle atrophy, BLE edema non pitting worse on right venous discoloration. Neuro: Speech clear, face symmetrical and CN II-XII grossly intact with no noted focal neuro deficits Psych: Alert and oriented to person, place, time, and situation. Appropriate and pleasant affect. Assessment and Plan of Care: Venous Insufficiency Ulcerations with surrounding cellulitis to right lower extremity Bilateral lower extremity Dopplers completed, negative for DVTs. Wound care IV antibiotics with vancomycin and Rocephin pending wound culture final results and sensitivity report. Consult to vascular surgery, tentative plan is patient going to OR later this afternoon for debridement. Wound cultures revealing preliminary results of presumptive MRSA Blood cultures showing no growth 24 hours. Consult to infectious disease, as patient will likely need IV antibiotics upon discharge secondary to presumptive findings of MRSA Hypokalemia Replaced, we will continue to monitor closely with repeat a.m. labs. Hypertension Monitor vital signs and continue daily medication regimen. Insulin-dependent diabetes mellitus type 2, hemoglobin A1c 7.7 Glycemic protocol with NovoLog sliding scale. Continue daily medication regimen with fixed dose and long acting. Hypothyroidism Continue daily medication regimen with levothyroxine. CODE STATUS: Full code DVT prophylaxis: Heparin Discussed with: Patient Anticipated discharge date: Clinical course to determine Anticipated discharge place: Home A total of 45 minutes was spent on the care of this complex patient more than 50% of the time was spent in counseling and care coordination. Objective - Vital Signs Vital signs: Vital Signs Temp 98.8 F 07/11/21 04:40 Pulse 77 07/11/21 07:21 Resp 22 07/11/21 04:40 BP 170/89 07/11/21 04:40 Pulse Ox 95 07/11/21 04:40 Intake & Output 07/10/21 07/11/21 07/11/21 18:59 06:59 18:59 Intake Total 2049 100 Balance 2049 100 Weight 108.862 kg Intake: Intake, IV Titration 1450 Amount Sodium Chloride 0.9% 1, 900 000 ml @ 75 mls/hr IV . [id number] [facility] Rx#:[id number] Vancomycin 1,750 mg In 500 Sodium Chloride 0.9% 500 ml 500 ml @ 167 mls/hr IVPB Q12H [facility] Rx#: [id number] cefTRIAXone 1 gm In 50 Sodium Chloride 0.9% 50 ml @ 100 mls/hr IVPB Q24HR [facility] Rx#:[id number] Oral 600 100 Other: Voiding Method Toilet Bedside Commode # Voids 5 2 - Labs CBC & Chem 7: 07/10/21 05:45 07/11/21 06:49 Labs: Abnormal Lab Results - Last 24 Hours (Table) 07/10/21 07/10/21 07/10/21 Range/Units 05:45 05:45 16:54 Sodium (137-145) mmol/L Potassium 3.3 L (3.5-5.5) mmol/L Anion Gap 17.10 H (4.00-12.00) mmol/L Glucose 61 L (70-110) mg/dL POC Glucose (mg/dL) 167 H (75-99) mg/dL Hemoglobin A1c 7.7 H (4.0-6.0) % Calcium 8.3 L (8.7-10.3) mg/dL Alkaline Phosphatase (38-126) U/L Albumin (3.5-5.0) g/dL 07/10/21 07/11/21 07/11/21 Range/Units 20:09 06:49 06:55 Sodium 136 L (137-145) mmol/L Potassium 3.3 L (3.5-5.5) mmol/L Anion Gap (4.00-12.00) mmol/L Glucose 135 H (70-110) mg/dL POC Glucose (mg/dL) 163 H 121 H (75-99) mg/dL Hemoglobin A1c (4.0-6.0) % Calcium 8.3 L (8.7-10.3) mg/dL Alkaline Phosphatase 157 H (38-126) U/L Albumin 3.0 L (3.5-5.0) g/dL Microbiology - Last 24 Hours (Table) 07/09/21 18:29 Gram Stain - Preliminary Leg - Right Wound Culture - Preliminary Presumptive MRSA 07/09/21 14:04 Blood Culture - Preliminary Blood No Growth after 24 hours <Ana Bolanos - Last Filed: 07/11/21 18:47> Subjective I reviewed the documentation as provided by the PATRIC above, who is the original author of this note. I agree with the documented assessment and plan, with the following changes: none Objective - Vital Signs Vital signs: Vital Signs Temp 98.2 F 07/11/21 15:55 Pulse 87 07/11/21 18:02 Resp 18 07/11/21 15:55 BP 179/103 07/11/21 15:55 Pulse Ox 93 L 07/11/21 17:55 Intake & Output 07/10/21 07/11/21 07/11/21 18:59 06:59 18:59 Intake Total 2049 100 380 Output Total 3 Balance 2049 100 377 Weight 108.862 kg Intake: IV 380 Intake, IV Titration 1450 Amount Sodium Chloride 0.9% 1, 900 000 ml @ 75 mls/hr IV . [id number] [facility] Rx#:[id number] Vancomycin 1,750 mg In 500 Sodium Chloride 0.9% 500 ml 500 ml @ 167 mls/hr IVPB Q12H [facility] Rx#: [id number] cefTRIAXone 1 gm In 50 Sodium Chloride 0.9% 50 ml @ 100 mls/hr IVPB Q24HR [facility] Rx#:[id number] Oral 600 100 Output: Estimated Blood Loss 3 Other: Voiding Method Toilet Bedside Commode # Voids 5 2 1 - Labs CBC & Chem 7: 07/10/21 05:45 07/11/21 06:49 Labs: Abnormal Lab Results - Last 24 Hours (Table) 07/10/21 07/11/21 07/11/21 Range/Units 20:09 06:49 06:55 Sodium 136 L (137-145) mmol/L Potassium 3.3 L (3.5-5.1) mmol/L Glucose 135 H (74-99) mg/dL POC Glucose (mg/dL) 163 H 121 H (75-99) mg/dL Calcium 8.3 L (8.4-10.2) mg/dL Alkaline Phosphatase 157 H (38-126) U/L Albumin 3.0 L (3.5-5.0) g/dL 07/11/21 07/11/21 07/11/21 Range/Units 11:26 13:42 14:51 Sodium (137-145) mmol/L Potassium (3.5-5.1) mmol/L Glucose (74-99) mg/dL POC Glucose (mg/dL) 110 H 116 H 123 H (75-99) mg/dL Calcium (8.4-10.2) mg/dL Alkaline Phosphatase (38-126) U/L Albumin (3.5-5.0) g/dL 07/11/21 Range/Units 16:58 Sodium (137-145) mmol/L Potassium (3.5-5.1) mmol/L Glucose (74-99) mg/dL POC Glucose (mg/dL) 129 H (75-99) mg/dL Calcium (8.4-10.2) mg/dL Alkaline Phosphatase (38-126) U/L Albumin (3.5-5.0) g/dL Microbiology - Last 24 Hours (Table) 07/09/21 18:29 Gram Stain - Final Leg - Right Wound Culture - Final Methicillin resist S. aureus 07/09/21 14:04 Blood Culture - Preliminary Blood No Growth after 48 hours
[2021-07-11] MEDS ORDERED: IV FLUID CONTINUATION 1,000 ML IV ONE ×3 (13:24→13:44)
[2021-07-11 13:43] LABS: Glucose,Whole Blood 116 mg/dL (75-99)
[2021-07-11] MEDS ORDERED: ONDANSETRON 4 MG/2 ML VIAL IVP ONE (13:46)
[2021-07-11] MEDS ORDERED: KETAMINE 10 MG/ML 20 ML VIAL ONE (13:55)
[2021-07-11] MEDS ORDERED: PROPOFOL 10 MG/ML 20 ML VIAL IV ONE (13:55)
[2021-07-11] MEDS ORDERED: MIDAZOLAM 2 MG/2 ML VIAL ONE (13:55)
[2021-07-11] MEDS ORDERED: fentaNYL (PF) 50 MCG/ML 2 ML AMP ONE (13:55)
[2021-07-11] MEDS ORDERED: LIDOCAINE 1% INJ 10MG/ML (20 ML MDV) SQ ONE (14:29)
--- NOTE | 2021-07-11 14:46 | P.OP ---
Date of Procedure: 07/11/21 Description of Procedure: Preoperative diagnosis: Right lower extremity wounds Postoperative diagnosis: Infected right lower extremity wounds Same Procedure: [Sharp excisional debridement right lower extremity wounds medial 4.5 x 4 x 0.7 to muscle lateral 2.2 x 3 x 0.2 to subcutaneous tissue] Surgeon: Aleshia Malik D.O. EBL: [10 mL] IV fluids: [See records] Urine output: [Not measured Specimen: Right lower extremity wound culture, tissue biopsy:] Drains: [None] Complications: [None immediately apparent] Condition: []Stable to recovery Operative indication and findings: [The patient is a 61-year-old female who presented to the hospital with right lower extremity wounds that have been worsening and very painful to her. Given there overall appearance was decided to need to be debrided. Risks and benefits were discussed. She seemingly understood and is willing to proceed.] Procedure in detail: [The patient was taken to the operative suite and placed in supine position. The right lower extremity was prepped and draped in usual sterile fashion. A preprocedure timeout was performed, all parties were in agreement. The area of necrotic tissue was excised with a scalpel on the medial portion of the wounds. It did express dark purulent fluid. It was cultured. It was fully expressed. The overlying portion was then all excised. The resultant wound measured 4.5 x 4 x 0.7 down the level of the muscle with small areas of tunneling from the 12 to 4 o'clock position Attention was then turned towards the lateral wound. The necrotic portion was debrided measuring 2.2 x 3 x 0.2 to subcutaneous tissues. Curet was used on the deep dermal tissues and a tissue biopsy was sent of the lateral wound. Dressing and wet-to-dry was placed. The patient is allowed awaken from anesthesia and transferred to recovery in stable condition having tolerated the procedure well]
[2021-07-11 14:53] LABS: Glucose,Whole Blood 123 mg/dL (75-99)
[2021-07-11] MEDS: HYDROmorphone 0.2 MG/1 ML SYRINGE IVP ONE ×2 (15:00→15:08)
[2021-07-11] MEDS: HYDROmorphone 0.5 MG/0.5 ML SYRINGE IVP ONE ×2 (15:00→15:08)
[2021-07-11 17:03] LABS: Glucose,Whole Blood 129 mg/dL (75-99)
[2021-07-11] MEDS: cloNIDine HCL 0.2 MG TAB PO PRN (17:24)
[2021-07-11] MEDS: diphenhydrAMINE 25 MG CAP PO PRN (17:31)
[2021-07-11] MEDS: ALBUTEROL NEBULIZED 2.5 MG/3 ML INHALATION PRN (17:52)
[2021-07-11] MEDS: ONDANSETRON 4 MG/2 ML VIAL IVP PRN (18:00)
[2021-07-11 20:12] LABS: Glucose,Whole Blood 144 mg/dL (75-99)
[2021-07-11] MEDS: guaiFENesin 600 MG TABLET.ER PO SCH (20:44)
[2021-07-11 22:16] LABS: Glucose,Whole Blood 411 mg/dL (75-99)
[2021-07-11] MEDS: INSULIN DETEMIR (LEVEMIR) 100 UNIT/ML SYR SQ SCH (22:24)
[2021-07-12] MEDS: HEPARIN SODIUM,PORCINE/PF 5,000 UNIT/0.5 ML SYRINGE SQ SCH ×3 (00:28→16:00)
[2021-07-12] MEDS ORDERED: VANCOMYCIN TROUGH DUE 1 EACH MISC MISCELLANE ONE (02:00)
[2021-07-12] MEDS: HYDROmorphone 0.5 MG/0.5 ML SYRINGE IVP PRN ×3 (02:09→20:35)
[2021-07-12] MEDS: ALBUTEROL NEBULIZED 2.5 MG/3 ML INHALATION PRN (03:35)
[2021-07-12] MEDS: VANCOMYCIN 1,750 MG in SODIUM CHLORIDE 0.9% 500 ML 500 ML IVPB SCH (03:55)
[2021-07-12] MEDS: HYDROcodone/APAP 5-325MG 1 EACH TAB PO PRN ×3 (05:40→16:01)
[2021-07-12] MEDS: LEVOTHYROXINE 137 MCG TAB PO SCH (05:41)
[2021-07-12 07:03] LABS: HCT 41.5 % (34.0-46.0); HGB 13.3 gm/dL (11.4-16.0); MCH 28.3 pg (25.0-35.0); MCV 88.4 fL (80.0-100.0); Mean Platelet Volume 7.4; Platelet Count 310 k/uL (150-450); WBC 7.7 k/uL (3.8-10.6)
[2021-07-12 07:06] LABS: Glucose,Whole Blood 57 mg/dL (75-99)
[2021-07-12] MEDS: IPRATROPIUM 0.5 MG/2.5 ML NEBU INHALATION SCH ×4 (07:23→21:11)
[2021-07-12 07:28] LABS: Glucose,Whole Blood 82 mg/dL (75-99)
[2021-07-12 07:43] LABS: African American GFR (CKD) 86 (>60 ml/min/1.73 sqM); Anion Gap 6 mmol/L; Blood Urea Nitrogen 12 mg/dL (7-17); Calcium 8.4 mg/dL (8.4-10.2); Carbon Dioxide 31 mmol/L (22-30); Chloride 99 mmol/L (98-107); Glucose 56 mg/dL (74-99); Magnesium 2.1 mg/dL (1.6-2.3); Non-African American GFR(CKD) 75 (>60 ml/min/1.73 sqM); Potassium 3.3 mmol/L (3.5-5.1); Sodium 136 mmol/L (137-145)
[2021-07-12] MEDS: hydroCHLOROthiazide 25 MG TAB PO SCH (07:43)
[2021-07-12] MEDS: guaiFENesin 600 MG TABLET.ER PO SCH ×2 (07:43→20:33)
[2021-07-12] MEDS: diphenhydrAMINE 25 MG CAP PO PRN (07:43)
[2021-07-12] MEDS: INSULIN ASPART (NovoLOG) 100 UNIT/ML VIAL SQ SCH ×7 (07:47→23:06)
[2021-07-12 09:53] LABS: Glucose,Whole Blood 105 mg/dL (75-99)
[2021-07-12] MEDS: COLLAGENASE 250 UNIT/GM OINTMENT 30 GM TUBE TOPICAL SCH (10:59)
[2021-07-12 11:55] LABS: Glucose,Whole Blood 102 mg/dL (75-99)
[2021-07-12] MEDS ORDERED: LIDOCAINE 1% INJ 10MG/ML (20 ML MDV) ONE (13:22)
--- NOTE | 2021-07-12 13:33 | P.PN ---
Subjective Progress Note Date: 07/12/21 Patient is seen and examined lying in bed. She is status post debridement of the right lower extremity. States she's having pain to the right lower extremity where the debridement site is. She's been afebrile. No acute changes through the night. Objective - Vital Signs Vital signs: Vital Signs Temp 97.8 F 07/12/21 12:33 Pulse 85 07/12/21 12:33 Resp 17 07/12/21 12:33 BP 173/93 07/12/21 12:33 Pulse Ox 94 L 07/12/21 12:33 Intake & Output 07/11/21 07/12/21 07/12/21 18:59 06:59 18:59 Intake Total 380 Output Total 3 Balance 377 Intake: IV 380 Output: Estimated Blood Loss 3 Other: Voiding Method Bedside Commode Bedside Commode # Voids 1 - Exam General appearance: The patient is alert, oriented, in no acute distress. HET: Head is normocephalic and atraumatic. Neck: Supple without lymphadenopathy. Trachea midline. Extremities: Right lower extremity with dressing clean dry and intact. Dressing changed with wet-to-dry dressing reapplied. Cellulitis to the right lower extremity. Neurological: No focal deficits. Strength and sensation are grossly intact. - Labs CBC & Chem 7: 07/12/21 06:16 07/12/21 06:16 Labs: Abnormal Lab Results - Last 24 Hours (Table) 07/11/21 07/11/21 07/11/21 Range/Units 13:42 14:51 16:58 Sodium (137-145) mmol/L Potassium (3.5-5.1) mmol/L Carbon Dioxide (22-30) mmol/L Glucose (74-99) mg/dL POC Glucose (mg/dL) 116 H 123 H 129 H (75-99) mg/dL 07/11/21 07/11/21 07/12/21 Range/Units 20:11 22:15 06:16 Sodium 136 L (137-145) mmol/L Potassium 3.3 L (3.5-5.1) mmol/L Carbon Dioxide 31 H (22-30) mmol/L Glucose 56 L (74-99) mg/dL POC Glucose (mg/dL) 144 H 411 H (75-99) mg/dL 07/12/21 07/12/21 07/12/21 Range/Units 07:04 09:45 11:53 Sodium (137-145) mmol/L Potassium (3.5-5.1) mmol/L Carbon Dioxide (22-30) mmol/L Glucose (74-99) mg/dL POC Glucose (mg/dL) 57 L 105 H 102 H (75-99) mg/dL Microbiology - Last 24 Hours (Table) 07/11/21 14:27 Gram Stain - Preliminary Leg - Right Wound Culture - Preliminary 07/11/21 14:27 Anaerobic Culture - Preliminary Leg - Right 07/09/21 18:29 Anaerobic Culture - Preliminary Leg - Right 07/09/21 18:29 Gram Stain - Final Leg - Right Wound Culture - Final Methicillin resist S. aureus 07/09/21 14:04 Blood Culture - Preliminary Blood No Growth after 48 hours Assessment and Plan Assessment: 1. Postop day #1 for right lower extremity excisional debridement 2. Infected right lower extremity diabetic wound 3. Venous insufficiency 4. Diabetes Mellitus Plan: 1. Diet as tolerated 2. Continue IV antibiotics 3. Pain medications as ordered, will add gabapentin 300 mg 3 times a day 4. Wound care consult in place, patient will need outpatient wound care in the clinic Thank you for this consultation, and allowing us take part in the plan of care of your patient during his hospital stay The impression and plan of care has been dictated as directed. Dr. Malik I performed a history and examination of this patient, discussed the same with the dictator. I agree with the dictator's note ,documented as a scribe. Any additional findings or plans will be noted.
[2021-07-12] MEDS ORDERED: LIDOCAINE 1% INJ 10MG/ML (20 ML MDV) SQ ONE (13:44)
--- NOTE | 2021-07-12 13:49 | PN ---
PROGRESS NOTE DATE OF SERVICE: 07/12/2021 REASON FOR FOLLOWUP: Right lower extremity MRSA infection. INTERVAL HISTORY: The patient is afebrile. The patient is breathing comfortably. The patient denies having any chest pain, shortness of breath or cough. Pain to the right leg is currently controlled. No vomiting or diarrhea. PHYSICAL EXAMINATION: Blood pressure 173/93 with a pulse of 85, temperature 97.8. She is 94% on room air. General description is a middle-aged female lying in bed in no distress. RESPIRATORY SYSTEM: Unlabored breathing. Clear to auscultation anteriorly. HEART: S1, S2. Regular rate and rhythm. ABDOMEN: Soft. No tenderness. Right leg is currently dressed with dressing. No drainage on the dressing. LABS: Hemoglobin is 13.3, white count 7.7, creatinine 0.85. Culture with MRSA. DIAGNOSTIC IMPRESSION AND PLAN: Patient with right lower extremity infected blister, status post debridement. Culture with MRSA. Plan is for vancomycin, Pharmacy to dose, for a total of 2 weeks. Close outpatient followup. MMODL / IJN: [id number] /
--- NOTE | 2021-07-12 14:09 | IR ---
PICC LINE PLACEMENT: HISTORY: Infection requiring long-term antibiotic therapy PROCEDURE: Ultrasound and fluoroscopic guidance of PICC line placement. COMPLICATIONS: None ANESTHESIA: 1. 1% Lidocaine locally. FINDINGS/TECHNIQUE: The procedure was explained to the patient. The risks, complications, benefits and alternatives were discussed and any questions were answered. Informed consent was obtained. The patient was placed supine on the fluoroscopic table and prepped and draped in the usual sterile fash ion. Utilizing a 21 gauge needle and sonographic and fluoroscopic guidance, access in the left basi lic vein was achieved and there is placement of a 0.018 guidewire. The vein is patent. A 4-F sheath was placed over the guidewire. The guidewire and dilator were removed and a 4-F. PICC line was plac ed through the sheath with the tip at the level of the SVC. The sheath was removed, the catheter was flushed and sutured into position. The patient was stable throughout the procedure and remained sta ble upon discharge from the Department of Radiology. The vein puncture was patent under ultrasound. A resendiz scale image was obtained to document patency of the vein punctured. All elements of the maximal barrier technique were utilized. FLUOROSCOPY TIME: 0.1 minutes and one image submitted IMPRESSION: Successful PICC line placement under ultrasound and fluoroscopic guidance.
[2021-07-12] MEDS ORDERED: POTASSIUM CHLORIDE ER 20 MEQ TAB.ER PO STA (15:24)
--- NOTE | 2021-07-12 15:25 | P.PN ---
<Jordan Hummel - Last Filed: 07/12/21 15:13> Subjective Progress Note Date: 07/12/21 Hospital course: Patient is a 61-year-old female with a past medical history of asthma, hyperte nsion, hypothyroidism, and insulin-dependent diabetes mellitus type 2. She presented to the emergency department with a chief complaint of right lower extremity wounds. Patient reports developing ulceration to right lower extremity approximately one month ago. She reports she was seen by her doctor place on an antibiotic and this seemed to improve, however over the past 2 weeks she has developed a second ulceration surrounded by significant redness and swelling. Patient states that she returned to her PCP and was instructed to come to the ER for further management. In addition to these ulcerations patient does report a subjective low-grade temp and hot flashes. Patient denies having any headache, lightheadedness, dizziness, chest pain, palpitations, shortness of breath, dyspnea with exertion, or experiencing any numbness/tingling/weakness in her extremities. She denies history of DVTs or any clotting disorders. In the emergency department patient was found to have mild leukocytosis with WBC count of 10.8 and an x-ray of right tib-fib negative for acute osseous abnormality sadie wing no signs of osteomyelitis. Patient admitted under our services with consultation to vascular surgery and wound care. Being treated with IV antibiotics vancomycin and Rocephin. Physical exam: Patient was seen and fully evaluated at the bedside earlier this morning. She reports feeling slightly better this morning. Stating pain in her right lower extremity is more controlled and she now has an appetite. Patient went to OR yesterday afternoon with vascular surgery for debridement of her wounds. Postsurgical dressing is currently in place. Wound culture is positive for MRSA. Discussed findings with infectious disease and was informed that pt will need an additional 2 weeks of antibiotics upon discharge with Vancomycin. Placed for PICC line as patient will need IV antibiotics upon discharge, discussed with case management. Patient requesting SNF placement for rehab upon time of discharge. Plans for [facility], awaiting approval. At this time patient to continue IV vancomycin, Rocephin discontinued. Vital signs reviewed and stable. General: Nontoxic, no distress and appears stated age. Derm: Skin warm and dry, normal coloration for ethnicity. Postsurgical dressing intact to right lower extremity. Head: Atraumatic, normocephalic and symmetric. Eyes: EOMs intact, no lid lag, and anicteric sclera Mouth: no lip lesions, mucus membranes moist Cardiovascular: regular rate and rhythm with normal S1S2, no murmur, positive posterior tibial pulses bilaterally, and cap refill < 2 seconds. Lungs: Respirations even, regular, and unlabored on room air. Lungs CTA bilaterally, no rhonchi, no rales, no wheezing, and no accessory muscle usage. Abdominal: soft, nontender to palpation, no guarding, no appreciable organomegaly Ext: ROM intact. No gross muscle atrophy, BLE edema non pitting worse on right venous discoloration. Neuro: Speech clear, face symmetrical and CN II-XII grossly intact with no noted focal neuro deficits Psych: Alert and oriented to person, place, time, and situation. Appropriate and pleasant affect. Assessment and Plan of Care: Venous Insufficiency Ulcerations with surrounding MRSA cellulitis to right lower extremity Bilateral lower extremity Dopplers completed, negative for DVTs. Wound care IV antibiotics with vancomycin Consult to vascular surgery, took patient for debridement on 07/11/21 Wound cultures positive for MRSA Blood cultures showing no growth 48 hours. Consult to infectious disease, recommending patient will need 2 weeks of antibiotic therapy after discharge. PICC line to be placed Hypokalemia Replaced, we will continue to monitor closely with repeat a.m. labs. Hypertension Monitor vital signs and continue daily medication regimen. Insulin-dependent diabetes mellitus type 2, hemoglobin A1c 7.7 Glycemic protocol with NovoLog sliding scale. Continue daily medication regimen with fixed dose and long acting. Hypothyroidism Continue daily medication regimen with levothyroxine. CODE STATUS: Full code DVT prophylaxis: Heparin Discussed with: Patient Anticipated discharge date: Clinical course to determine Anticipated discharge place: Home A total of 45 minutes was spent on the care of this complex patient more than 50% of the time was spent in counseling and care coordination. Objective - Vital Signs Vital signs: Vital Signs Temp 97.8 F 07/12/21 12:33 Pulse 85 07/12/21 12:33 Resp 17 07/12/21 12:33 BP 173/93 07/12/21 12:33 Pulse Ox 94 L 07/12/21 12:33 Intake & Output 07/11/21 07/12/21 07/12/21 18:59 06:59 18:59 Intake Total 380 Output Total 3 Balance 377 Intake: IV 380 Output: Estimated Blood Loss 3 Other: Voiding Method Bedside Commode Bedside Commode # Voids 1 - Labs CBC & Chem 7: 07/12/21 06:16 07/12/21 06:16 Labs: Abnormal Lab Results - Last 24 Hours (Table) 07/11/21 07/11/21 07/11/21 Range/Units 16:58 20:11 22:15 Sodium (137-145) mmol/L Potassium (3.5-5.1) mmol/L Carbon Dioxide (22-30) mmol/L Glucose (74-99) mg/dL POC Glucose (mg/dL) 129 H 144 H 411 H (75-99) mg/dL 07/12/21 07/12/21 07/12/21 Range/Units 06:16 07:04 09:45 Sodium 136 L (137-145) mmol/L Potassium 3.3 L (3.5-5.1) mmol/L Carbon Dioxide 31 H (22-30) mmol/L Glucose 56 L (74-99) mg/dL POC Glucose (mg/dL) 57 L 105 H (75-99) mg/dL 07/12/21 Range/Units 11:53 Sodium (137-145) mmol/L Potassium (3.5-5.1) mmol/L Carbon Dioxide (22-30) mmol/L Glucose (74-99) mg/dL POC Glucose (mg/dL) 102 H (75-99) mg/dL Microbiology - Last 24 Hours (Table) 07/11/21 14:27 Gram Stain - Preliminary Leg - Right Wound Culture - Preliminary 07/11/21 14:27 Anaerobic Culture - Preliminary Leg - Right 07/09/21 18:29 Anaerobic Culture - Preliminary Leg - Right 07/09/21 18:29 Gram Stain - Final Leg - Right Wound Culture - Final Methicillin resist S. aureus 07/09/21 14:04 Blood Culture - Preliminary Blood No Growth after 48 hours <Ana Bolanos - Last Filed: 07/12/21 17:13> Subjective I reviewed the documentation as provided by the PATRIC above, who is the original author of this note. I agree with the documented assessment and plan, with the following changes: None Objective - Vital Signs Vital signs: Vital Signs Temp 97.8 F 07/12/21 12:33 Pulse 92 07/12/21 16:40 Resp 17 07/12/21 12:33 BP 173/93 07/12/21 12:33 Pulse Ox 85 L 07/12/21 16:38 Intake & Output 07/11/21 07/12/21 07/12/21 18:59 06:59 18:59 Intake Total 380 Output Total 3 Balance 377 Intake: IV 380 Output: Estimated Blood Loss 3 Other: Voiding Method Bedside Commode Bedside Commode # Voids 1 - Labs CBC & Chem 7: 07/12/21 06:16 07/12/21 06:16 Labs: Abnormal Lab Results - Last 24 Hours (Table) 07/11/21 07/11/21 07/12/21 Range/Units 20:11 22:15 06:16 Sodium 136 L (137-145) mmol/L Potassium 3.3 L (3.5-5.1) mmol/L Carbon Dioxide 31 H (22-30) mmol/L Glucose 56 L (74-99) mg/dL POC Glucose (mg/dL) 144 H 411 H (75-99) mg/dL 07/12/21 07/12/21 07/12/21 Range/Units 07:04 09:45 11:53 Sodium (137-145) mmol/L Potassium (3.5-5.1) mmol/L Carbon Dioxide (22-30) mmol/L Glucose (74-99) mg/dL POC Glucose (mg/dL) 57 L 105 H 102 H (75-99) mg/dL 07/12/21 Range/Units 16:58 Sodium (137-145) mmol/L Potassium (3.5-5.1) mmol/L Carbon Dioxide (22-30) mmol/L Glucose (74-99) mg/dL POC Glucose (mg/dL) 136 H (75-99) mg/dL Microbiology - Last 24 Hours (Table) 07/09/21 14:04 Blood Culture - Preliminary Blood No Growth after 72 hours 07/11/21 14:27 Gram Stain - Preliminary Leg - Right Wound Culture - Preliminary 07/11/21 14:27 Anaerobic Culture - Preliminary Leg - Right 07/09/21 18:29 Anaerobic Culture - Preliminary Leg - Right 07/09/21 18:29 Gram Stain - Final Leg - Right Wound Culture - Final Methicillin resist S. aureus
[2021-07-12] MEDS: GABAPENTIN 300 MG CAP PO SCH ×2 (16:00→23:32)
[2021-07-12 16:59] LABS: Glucose,Whole Blood 136 mg/dL (75-99)
[2021-07-12] MEDS: VANCOMYCIN 1,500 MG in SODIUM CHLORIDE 0.9% 250 ML IVPB SCH (17:38)
[2021-07-12 21:01] LABS: Glucose,Whole Blood 87 mg/dL (75-99)
[2021-07-12 22:14] LABS: Glucose,Whole Blood 133 mg/dL (75-99)
[2021-07-12] MEDS: INSULIN DETEMIR (LEVEMIR) 100 UNIT/ML SYR SQ SCH (23:06)
[2021-07-13] MEDS: HYDROcodone/APAP 5-325MG 1 EACH TAB PO PRN ×3 (01:09→20:37)
[2021-07-13 01:24] LABS: Glucose,Whole Blood 161 mg/dL (75-99)
[2021-07-13] MEDS: diphenhydrAMINE 25 MG CAP PO PRN ×2 (01:42→10:23)
[2021-07-13] MEDS: HEPARIN SODIUM,PORCINE/PF 5,000 UNIT/0.5 ML SYRINGE SQ SCH ×4 (01:47→23:53)
[2021-07-13] MEDS: ALBUTEROL NEBULIZED 2.5 MG/3 ML INHALATION PRN (03:40)
[2021-07-13] MEDS: VANCOMYCIN 1,500 MG in SODIUM CHLORIDE 0.9% 250 ML IVPB SCH ×2 (04:43→16:03)
[2021-07-13 07:11] LABS: African American GFR (CKD) >90 (>60 ml/min/1.73 sqM); Non-African American GFR(CKD) 83 (>60 ml/min/1.73 sqM)
[2021-07-13 07:58] LABS: Glucose,Whole Blood 177 mg/dL (75-99)
[2021-07-13] MEDS: INSULIN ASPART (NovoLOG) 100 UNIT/ML VIAL SQ SCH ×7 (08:37→21:32)
[2021-07-13] MEDS: LEVOTHYROXINE 137 MCG TAB PO SCH (08:37)
[2021-07-13] MEDS: HYDROmorphone 0.5 MG/0.5 ML SYRINGE IVP PRN ×2 (08:38→15:40)
[2021-07-13] MEDS: guaiFENesin 600 MG TABLET.ER PO SCH ×2 (08:39→21:21)
[2021-07-13] MEDS: hydroCHLOROthiazide 25 MG TAB PO SCH (08:39)
[2021-07-13] MEDS: GABAPENTIN 300 MG CAP PO SCH ×3 (08:39→21:21)
--- NOTE | 2021-07-13 09:06 | P.CONS ---
History of Present Illness - Reason for Consult Consult date: 07/11/21 right leg infection Requesting physician: Jordan Hummel - Chief Complaint right leg pain and redness x days - History of Present Illness History of present illness : Patient is 61-year-old female presented to the hospital 4 days ago for evaluation of increasing redness and swelling to the right lower extremity currently the patient did have a wound that started ab out 2 weeks ago denies having any history of any trauma patient noticed there was a blister significantly more blackish in color and started having redness around it complaining of increasing pain patient described the pain to be throbbing to be getting worse for the last few days this is almost 7-8 out of 10 evaluation with associated swelling and redness patient did present to the hospital patient on arrival to the ER was afebrile and no fever was recorded subsequently patient did have a white count of 10 point 8 repeat was 12,000 kidney function has been normal thurman PCR was negative patient did have x-rays of tibia-fibula no acute bony abnormality soft tissue edema patient did have a sharp excisional debridement of right lower extremity wound by vascular surgery this afternoon she did have a swab obtained which is showing result of MRSA that has prompted infectious disease consultation patient is currently being treated with Rocephin and vancomycin Review of system: CONSTITUTIONAL: Positive for weakness denies high-grade fever. EYES: No complaint. ENT: No complaint. RESPIRATORY: No complaint. CARDIOVASCULAR: No complaint. GENITOURINARY: No complaint. GASTROINTESTINAL: No complaint. MUSCULOSKELETAL: As per history of present illness. INTEGUMENTARY: As per history of present illness. PSYCHOLOGIC: No complaint. ENDOCRINE: No complaint. NEUROLOGIC: No complaint. Past medical history : Reviewed, documented below Past surgical history : Reviewed, documented below Social history: Reviewed, documented below Medications: Reviewed, as documented below EXAMINATION: Vital sigans= Reviewed and documented below GENERAL DESCRIPTION: Middle-aged female lying in bed, no distress. No tachypnea or accessory muscle of respiration use. HEENT: Shows Pallor , no scleral icterus. Oral mucous membrane is dry. NECK: Trachea central, no thyromegaly. LUNGS: Unlabored breathing. Clear to auscultation anteriorly. No wheeze or crackle. HEART: S1, S2, regular rate and rhythm. ABDOMEN: Soft, no tenderness , guarding or rigidity EXTREMITIES: Right leg wounds are currently dressed no obvious drainage on the dressing. SKIN: No rash, no masses palpable. NEUROLOGICAL: The patient is awake, alert, oriented x3, mood and affect normal. LABS AND RADIOLOGY: Reviewed results see below Assessment : Patient presented to hospital 4 days ago for evaluation of worsening pain swelling redness of the right lower extremity in this patient did have evidence of infected blister status post extensive debridement by vascular surgery with evidence of extension down to the muscle with a culture showing MRSA Plan: 1-vancomycin pharmacy to dose with a target trough of 15 while watching kidney function and Vanco trough closely. 2-discontinue Rocephin 3-patient will likely need a PICC line and outpatient IV antibiotic therapy in view of her extensive infection We will follow on clinical condition and cultures to further adjust medication if needed Thank you for this consultation we will follow the patient along with you Past Medical History Past Medical History: Asthma, Diabetes Mellitus, Fibromyalgia, GERD/Reflux, Hypertension, Thyroid Disorder History of Any Multi-Drug Resistant Organisms: MRSA Year Discovered:: 2012 MDRO Source:: abd Past Surgical History: Appendectomy Additional Past Surgical History / Comment(s): bowel surgery, D&C, colostomy with reversile Smoking Status: Current some day smoker, Never smoker Medications and Allergies Home Medications Medication Instructions Recorded Confirmed Type Albuterol Nebulized [Ventolin 3 ml INHALATION RT-Q4H PRN 06/10/14 07/09/21 History Nebulized] Tiotropium 18 Mcg/Puff [Spiriva] 1 puff INHALATION RT-DAILY 06/10/14 07/09/21 History hydroCHLOROthiazide [Hydrodiuril] 25 mg PO DAILY 06/10/14 07/09/21 History Albuterol Inhaler [Ventolin Hfa 1 puff INHALATION RT-QID PRN 07/09/21 07/09/21 History Inhaler] Chlorpheniramine Maleate 4 mg PO Q4H PRN 07/09/21 07/09/21 History [Chlor-Trimeton] Insulin Aspart [NovoLOG Flexpen] 20 units SQ AC-TID 07/09/21 07/09/21 History Insulin Detemir [Levemir Flextouch 70 units SQ HS 07/09/21 07/09/21 History Pen] Levothyroxine Sodium [Synthroid] 137 mcg PO DAILY 07/09/21 07/09/21 History diphenhydrAMINE [Benadryl] 25 mg PO Q4H PRN 07/09/21 07/09/21 History Allergies Allergy/AdvReac Type Severity Reaction Status Date / Time amlodipine besylate Allergy Rash/Hives Verified 07/09/21 15:59 [From Norvasc] azithromycin [From Zithromax] Allergy Unknown Verified 07/09/21 15:59 clindamycin Allergy Unknown Verified 07/09/21 15:59 codeine Allergy Nausea & Verified 07/09/21 15:59 Vomiting doxycycline Allergy Rash/Hives Verified 07/09/21 15:59 hydrochlorothiazide Allergy Rash/Hives Verified 07/09/21 15:59 [From Hyzaar] levofloxacin [From Levaquin] Allergy Unknown Verified 07/09/21 15:59 losartan potassium Allergy Unknown Verified 07/09/21 15:59 [From Hyzaar] Penicillins Allergy Rash/Hives Verified 07/09/21 15:59 Sulfa (Sulfonamide Allergy Unknown Verified 07/09/21 15:59 Antibiotics) Physical Exam Vitals: Vital Signs Temp Pulse Pulse Pulse Resp BP BP 07/11/21 15:55 98.2 F 98 18 179/103 07/11/21 15:23 91 18 206/95 07/11/21 15:08 90 16 187/89 07/11/21 14:53 96 16 208/108 07/11/21 14:38 98.6 F 85 16 196/106 07/11/21 13:32 97.5 F L 89 18 179/85 07/11/21 11:24 86 07/11/21 11:22 97.9 F 89 16 181/83 07/11/21 11:09 81 07/11/21 07:21 77 07/11/21 07:06 78 07/11/21 04:40 98.8 F 83 22 170/89 07/10/21 19:53 78 07/10/21 19:40 84 07/10/21 19:35 99.1 F 91 22 171/92 Pulse Ox 07/11/21 15:55 90 L 07/11/21 15:23 94 L 07/11/21 15:08 93 L 07/11/21 14:53 99 07/11/21 14:38 97 07/11/21 13:32 94 L 07/11/21 11:24 07/11/21 11:22 92 L 07/11/21 11:09 07/11/21 07:21 07/11/21 07:06 07/11/21 04:40 95 07/10/21 19:53 07/10/21 19:40 07/10/21 19:35 94 L Intake and Output 07/11/21 07/11/21 07/11/21 06:59 14:59 22:59 Intake Total 0 300 80 Output Total 3 Balance 0 297 80 Intake: IV 300 80 Oral 0 Output: Estimated Blood Loss 3 Other: Voiding Method Bedside Commode # Voids 2 1 Results CBC & Chem 7: 07/12/21 06:16 07/13/21 05:18 Labs: Abnormal Lab Results - Last 24 Hours (Table) 07/10/21 07/10/21 07/10/21 Range/Units 05:45 16:54 20:09 Sodium (137-145) mmol/L Potassium 3.3 L (3.5-5.5) mmol/L Anion Gap 17.10 H (4.00-12.00) mmol/L Glucose 61 L (70-110) mg/dL POC Glucose (mg/dL) 167 H 163 H (75-99) mg/dL Calcium 8.3 L (8.7-10.3) mg/dL Alkaline Phosphatase (38-126) U/L Albumin (3.5-5.0) g/dL 07/11/21 07/11/21 07/11/21 Range/Units 06:49 06:55 11:26 Sodium 136 L (137-145) mmol/L Potassium 3.3 L (3.5-5.5) mmol/L Anion Gap (4.00-12.00) mmol/L Glucose 135 H (70-110) mg/dL POC Glucose (mg/dL) 121 H 110 H (75-99) mg/dL Calcium 8.3 L (8.7-10.3) mg/dL Alkaline Phosphatase 157 H (38-126) U/L Albumin 3.0 L (3.5-5.0) g/dL 07/11/21 07/11/21 Range/Units 13:42 14:51 Sodium (137-145) mmol/L Potassium (3.5-5.5) mmol/L Anion Gap (4.00-12.00) mmol/L Glucose (70-110) mg/dL POC Glucose (mg/dL) 116 H 123 H (75-99) mg/dL Calcium (8.7-10.3) mg/dL Alkaline Phosphatase (38-126) U/L Albumin (3.5-5.0) g/dL Microbiology - Last 24 Hours (Table) 07/09/21 18:29 Gram Stain - Preliminary Leg - Right Wound Culture - Preliminary Presumptive MRSA 07/09/21 14:04 Blood Culture - Preliminary Blood No Growth after 24 hours
[2021-07-13] MEDS: IPRATROPIUM 0.5 MG/2.5 ML NEBU INHALATION SCH ×4 (09:41→19:14)
[2021-07-13 11:45] LABS: Glucose,Whole Blood 122 mg/dL (75-99)
--- NOTE | 2021-07-13 16:07 | P.PN ---
Subjective Progress Note Date: 07/13/21 No significant events overnight. Patient still complaining of pain in her right lower extremity but is improving overall. No fevers or chills, vital signs of been stable. When cultures are growing MRSA, she is on day 4 of vancomycin, PICC line was placed yesterday. Overall improving Objective - Vital Signs Vital signs: Vital Signs Temp 98.2 F 07/13/21 15:44 Pulse 90 07/13/21 15:44 Resp 19 07/13/21 15:44 BP 159/91 07/13/21 15:44 Pulse Ox 90 L 07/13/21 15:44 Intake & Output 07/12/21 07/13/21 07/13/21 18:59 06:59 18:59 Intake Total 500 200 Balance 500 200 Intake: Intake, IV Titration 500 Amount Vancomycin 1,750 mg In 500 Sodium Chloride 0.9% 500 ml 500 ml @ 167 mls/hr IVPB Q12H [facility] Rx#: [id number] Oral 200 Other: Voiding Method Toilet Toilet # Voids 4 2 - Exam General: Nontoxic, no distress and appears stated age. Derm: Skin warm and dry, normal coloration for ethnicity. Postsurgical dressing intact to right lower extremity. Head: Atraumatic, normocephalic and symmetric. Eyes: EOMs intact, no lid lag, and anicteric sclera Mouth: no lip lesions, mucus membranes moist Cardiovascular: regular rate and rhythm with normal S1S2, no murmur, positive posterior tibial pulses bilaterally, and cap refill < 2 seconds. Lungs: Respirations even, regular, and unlabored on room air. Lungs CTA bilaterally, no rhonchi, no rales, no wheezing, and no accessory muscle usage. Abdominal: soft, nontender to palpation, no guarding, no appreciable organomegaly Ext: ROM intact. No gross muscle atrophy, BLE edema non pitting worse on right venous discoloration. Neuro: Speech clear, face symmetrical and CN II-XII grossly intact with no noted focal neuro deficits Psych: Alert and oriented to person, place, time, and situation. Appropriate and pleasant affect. - Labs CBC & Chem 7: 07/12/21 06:16 07/13/21 05:18 Labs: Abnormal Lab Results - Last 24 Hours (Table) 07/12/21 07/12/21 07/13/21 Range/Units 16:58 22:10 01:22 POC Glucose (mg/dL) 136 H 133 H 161 H (75-99) mg/dL 07/13/21 07/13/21 Range/Units 07:57 11:38 POC Glucose (mg/dL) 177 H 122 H (75-99) mg/dL Microbiology - Last 24 Hours (Table) 07/11/21 14:27 Gram Stain - Preliminary Leg - Right Wound Culture - Preliminary Presumptive MRSA 07/09/21 14:04 Blood Culture - Preliminary Blood No Growth after 72 hours Assessment and Plan Plan: Venous Insufficiency Ulcerations with surrounding MRSA cellulitis to right lower extremity -Improving -Status post debridement by vessel surgery on 07/11/21 IV antibiotics with vancomycin Wound cultures positive for MRSA Bilateral lower extremity Dopplers completed, negative for DVTs. Wound care Blood cultures showing no growth 48 hours. Consult to infectious disease, recommending patient will need 2 weeks of antibiotic therapy after discharge. PICC line placed yesterday Hypokalemia Replaced, we will continue to monitor closely with repeat a.m. labs. Hypertension Monitor vital signs and continue daily medication regimen. Insulin-dependent diabetes mellitus type 2, hemoglobin A1c 7.7 Glycemic protocol with NovoLog sliding scale. Continue daily medication regimen with fixed dose and long acting. Hypothyroidism Continue daily medication regimen with levothyroxine. Anticipated discharge to [facility] in the next 24-48 hours Time with Patient: Greater than 30
--- NOTE | 2021-07-13 16:47 | P.PN ---
Subjective Progress Note Date: 07/13/21 She is evaluated today in follow-up care status post right lower extremity debridement. Patient indicates the pain is relatively well controlled. Objective - Vital Signs Vital signs: Vital Signs Temp 98.2 F 07/13/21 15:44 Pulse 90 07/13/21 15:44 Resp 19 07/13/21 15:44 BP 159/91 07/13/21 15:44 Pulse Ox 90 L 07/13/21 15:44 Intake & Output 07/12/21 07/13/21 07/13/21 18:59 06:59 18:59 Intake Total 500 200 Balance 500 200 Intake: Intake, IV Titration 500 Amount Vancomycin 1,750 mg In 500 Sodium Chloride 0.9% 500 ml 500 ml @ 167 mls/hr IVPB Q12H [facility] Rx#: [id number] Oral 200 Other: Voiding Method Toilet Toilet # Voids 4 2 - Exam Surgical dressings are removed. The wound along the medial aspect of the right lower extremity just proximal to the malleolar level demonstrates good granular tissue throughout the majority the base of the wound. Edges are clean. Small degree of undermining is noted. No tunneling is noted. There is no surrounding cellulitic reaction. The wound is redressed with Adaptic, saline moistened gauze and Kerlix. I reviewed with the patient the need to keep her leg elevated as this wound appears to be venous in origin. Patient does maintain palpable DP and PT pulses. - Labs CBC & Chem 7: 07/12/21 06:16 07/13/21 05:18 Labs: Abnormal Lab Results - Last 24 Hours (Table) 07/12/21 07/12/21 07/13/21 Range/Units 16:58 22:10 01:22 POC Glucose (mg/dL) 136 H 133 H 161 H (75-99) mg/dL 07/13/21 07/13/21 Range/Units 07:57 11:38 POC Glucose (mg/dL) 177 H 122 H (75-99) mg/dL Microbiology - Last 24 Hours (Table) 07/09/21 14:04 Blood Culture - Preliminary Blood No Growth after 96 hours 07/11/21 14:27 Gram Stain - Preliminary Leg - Right Wound Culture - Preliminary Presumptive MRSA Assessment and Plan Assessment: #1: Venous ulcer right lower extremity, status post incision and drainage/debridement. #2: Venous insufficiency. #3: Diabetes mellitus. #4: Methicillin resistant Staphylococcus aureus in wound. Await final sensitivities. Continue vancomycin. Plan: We'll continue with IV antibiotics and local wound care.
[2021-07-13 17:48] LABS: Glucose,Whole Blood 148 mg/dL (75-99)
--- NOTE | 2021-07-13 18:18 | PN ---
PROGRESS NOTE DATE OF SERVICE: 07/13/2021 REASON FOR FOLLOWUP: Right lower extremity MRSA infection. INTERVAL HISTORY: The patient is afebrile. Still complaining of pain to the right lower extremity; no worsening, though. No chest pain, shortness of breath or cough. No abdominal pain or diarrhea. PHYSICAL EXAMINATION: Blood pressure 159/91 with a pulse of 90, temperature 98.2. She is 90% on room air. General description is a middle-aged female lying in bed in no distress. RESPIRATORY SYSTEM: Unlabored breathing. Clear to auscultation anteriorly. HEART: S1, S2. Regular rate and rhythm. ABDOMEN: Soft. No tenderness. Right leg is currently dressed. No obvious drainage on the dressing. LABS: Creatinine 0.78. Culture positive for MRSA. DIAGNOSTIC IMPRESSION AND PLAN: Patient right lower extremity MRSA infection with an infected blister, status post debridement. Patient is covered with vancomycin; to continue. Waiting for placement. Local care per Surgery. Continue with supportive care. MMODL / IJN: [id number] /
[2021-07-13] MEDS: cloNIDine HCL 0.2 MG TAB PO PRN (21:21)
[2021-07-13 21:22] LABS: Glucose,Whole Blood 115 mg/dL (75-99)
[2021-07-13] MEDS: INSULIN DETEMIR (LEVEMIR) 100 UNIT/ML SYR SQ SCH (21:22)
[2021-07-14] MEDS: ALBUTEROL NEBULIZED 2.5 MG/3 ML INHALATION PRN ×2 (00:28→03:28)
[2021-07-14] MEDS: LEVOTHYROXINE 137 MCG TAB PO SCH (04:43)
[2021-07-14] MEDS: HYDROcodone/APAP 5-325MG 1 EACH TAB PO PRN ×2 (04:43→17:30)
[2021-07-14] MEDS: VANCOMYCIN 1,500 MG in SODIUM CHLORIDE 0.9% 250 ML IVPB SCH ×2 (04:43→15:53)
[2021-07-14 05:29] LABS: African American GFR (CKD) >90 (>60 ml/min/1.73 sqM); Non-African American GFR(CKD) 86 (>60 ml/min/1.73 sqM)
[2021-07-14] MEDS: IPRATROPIUM 0.5 MG/2.5 ML NEBU INHALATION SCH ×4 (07:28→20:51)
[2021-07-14 07:35] LABS: Glucose,Whole Blood 130 mg/dL (75-99)
[2021-07-14] MEDS: INSULIN ASPART (NovoLOG) 100 UNIT/ML VIAL SQ SCH ×7 (07:41→21:42)
[2021-07-14] MEDS: HEPARIN SODIUM,PORCINE/PF 5,000 UNIT/0.5 ML SYRINGE SQ SCH ×3 (08:26→23:37)
[2021-07-14] MEDS: HYDROmorphone 0.5 MG/0.5 ML SYRINGE IVP PRN (08:26)
[2021-07-14] MEDS: hydroCHLOROthiazide 25 MG TAB PO SCH (08:27)
[2021-07-14] MEDS: GABAPENTIN 300 MG CAP PO SCH ×3 (08:27→21:27)
[2021-07-14] MEDS: guaiFENesin 600 MG TABLET.ER PO SCH ×2 (08:27→20:09)
[2021-07-14] MEDS: diphenhydrAMINE 25 MG CAP PO PRN ×3 (12:16→20:09)
[2021-07-14 13:03] LABS: Glucose,Whole Blood 93 mg/dL (75-99)
[2021-07-14] MEDS ORDERED: VANCOMYCIN TROUGH DUE 1 EACH MISC MISCELLANE ONE (16:00)
--- NOTE | 2021-07-14 17:02 | P.PN ---
Subjective Progress Note Date: 07/14/21 Patient significantly improved today. Patient is ambulating more with minimal difficulty. Vital signs stable, she has been afebrile, on day 5 of IV vancomycin for treatment of MRSA infection of lower shimmy. Plan to discharge to [facility] tomorrow Objective - Vital Signs Vital signs: Vital Signs Temp 98.1 F 07/14/21 12:20 Pulse 82 07/14/21 12:20 Resp 19 07/14/21 12:20 BP 166/96 07/14/21 12:20 Pulse Ox 91 L 07/14/21 12:20 Intake & Output 07/13/21 07/14/21 07/14/21 18:59 06:59 18:59 Intake Total 700 Balance 700 Intake: Oral 700 Other: Voiding Method Toilet Toilet Toilet # Voids 2 - Exam General: Nontoxic, no distress and appears stated age. Derm: Skin warm and dry, normal coloration for ethnicity. Postsurgical dressing intact to right lower extremity. Head: Atraumatic, normocephalic and symmetric. Eyes: EOMs intact, no lid lag, and anicteric sclera Mouth: no lip lesions, mucus membranes moist Cardiovascular: regular rate and rhythm with normal S1S2, no murmur, positive posterior tibial pulses bilaterally, and cap refill < 2 seconds. Lungs: Respirations even, regular, and unlabored on room air. Lungs CTA bilaterally, no rhonchi, no rales, no wheezing, and no accessory muscle usage. Abdominal: soft, nontender to palpation, no guarding, no appreciable organomegaly Ext: ROM intact. No gross muscle atrophy, BLE edema non pitting worse on right venous discoloration. Neuro: Speech clear, face symmetrical and CN II-XII grossly intact with no noted focal neuro deficits Psych: Alert and oriented to person, place, time, and situation. Appropriate and pleasant affect. - Labs CBC & Chem 7: 07/12/21 06:16 07/14/21 04:08 Labs: Abnormal Lab Results - Last 24 Hours (Table) 07/13/21 07/13/21 07/14/21 Range/Units 17:46 21:15 07:33 POC Glucose (mg/dL) 148 H 115 H 130 H (75-99) mg/dL Microbiology - Last 24 Hours (Table) 07/09/21 14:04 Blood Culture - Preliminary Blood No Growth after 120 hours 07/11/21 14:27 Anaerobic Culture - Preliminary Leg - Right 07/11/21 14:27 Gram Stain - Final Leg - Right Wound Culture - Final Methicillin resist S. aureus 07/09/21 18:29 Anaerobic Culture - Final Leg - Right Assessment and Plan Plan: Venous Insufficiency Ulcerations with surrounding MRSA cellulitis to right lower extremity -Improving -Status post debridement by vascular surgery on 07/11/21 IV antibiotics with vancomycin Wound cultures positive for MRSA Bilateral lower extremity Dopplers completed, negative for DVTs. Wound care Blood cultures showing no growth 48 hours. Consult to infectious disease, recommending patient will need 2 weeks of antibiotic therapy after discharge. PICC line placed Hypokalemia Replaced, we will continue to monitor closely with repeat a.m. labs. Hypertension Monitor vital signs and continue daily medication regimen. Insulin-dependent diabetes mellitus type 2, hemoglobin A1c 7.7 Glycemic protocol with NovoLog sliding scale. Continue daily medication regimen with fixed dose and long acting. Hypothyroidism Continue daily medication regimen with levothyroxine. Anticipated discharge to [facility] tomorrow Time with Patient: Less than 30
[2021-07-14 17:12] LABS: Glucose,Whole Blood 202 mg/dL (75-99)
[2021-07-14] MEDS: cloNIDine HCL 0.2 MG TAB PO PRN (20:09)
[2021-07-14 20:26] LABS: Glucose,Whole Blood 105 mg/dL (75-99)
[2021-07-14] MEDS: INSULIN DETEMIR (LEVEMIR) 100 UNIT/ML SYR SQ SCH (21:27)
--- NOTE | 2021-07-15 00:02 | PN ---
PROGRESS NOTE DATE OF SERVICE: 07/14/2021 REASON FOR FOLLOWUP: Right leg infected wound and MRSA. INTERVAL HISTORY: Patient is afebrile. She is breathing comfortably. Pain is currently controlled. No chest pain, shortness of breath or cough. No abdominal pain. No diarrhea. PHYSICAL EXAMINATION: Blood pressure 135/77 with a pulse of 83, temperature 98.7. She is 99% on room air. General description is a middle-aged female lying in bed in no distress. Respiratory system: Unlabored breathing, clear to auscultation anteriorly. Heart S1, S2. Regular rate and rhythm. Abdomen soft, no tenderness. Right leg is currently dressed. No obvious drainage on the dressing. DIAGNOSTIC IMPRESSION/PLAN: Patient with right lower extremity MRSA infection, status post debridement of the wound. Patient is covered with vancomycin. Plan for 2 weeks of vancomycin. Pharmacy to dose. Local wound care per surgeon. Close outpatient followup. MMODL / IJN: [id number] /
[2021-07-15] MEDS: ALBUTEROL NEBULIZED 2.5 MG/3 ML INHALATION PRN (01:21)
[2021-07-15] MEDS: HYDROcodone/APAP 5-325MG 1 EACH TAB PO PRN ×3 (03:12→11:42)
[2021-07-15] MEDS: LEVOTHYROXINE 137 MCG TAB PO SCH ×2 (04:59→07:58)
[2021-07-15] MEDS: VANCOMYCIN 1,500 MG in SODIUM CHLORIDE 0.9% 250 ML IVPB SCH (04:59)
[2021-07-15] MEDS: diphenhydrAMINE 25 MG CAP PO PRN (04:59)
[2021-07-15 05:06] VITALS: RESP 16; TEMP 97.7
[2021-07-15 07:36] LABS: Glucose,Whole Blood 139 mg/dL (75-99)
[2021-07-15 07:54] LABS: African American GFR (CKD) >90 (>60 ml/min/1.73 sqM); Non-African American GFR(CKD) 80 (>60 ml/min/1.73 sqM)
[2021-07-15] MEDS: HEPARIN SODIUM,PORCINE/PF 5,000 UNIT/0.5 ML SYRINGE SQ SCH (07:55)
[2021-07-15] MEDS: INSULIN ASPART (NovoLOG) 100 UNIT/ML VIAL SQ SCH ×4 (07:55→13:44)
[2021-07-15] MEDS: guaiFENesin 600 MG TABLET.ER PO SCH (07:56)
[2021-07-15] MEDS: cloNIDine HCL 0.2 MG TAB PO PRN (07:56)
[2021-07-15] MEDS: GABAPENTIN 300 MG CAP PO SCH (07:56)
[2021-07-15] MEDS: hydroCHLOROthiazide 25 MG TAB PO SCH (07:56)
[2021-07-15] MEDS: IPRATROPIUM 0.5 MG/2.5 ML NEBU INHALATION SCH ×2 (08:05→10:47)
--- NOTE | 2021-07-15 12:12 | P.PN ---
Subjective Progress Note Date: 07/15/21 Patient is seen and examined walking around in her room with a walker. Her pain is well managed. She is status post debridement of the right lower extremity. Wound culture came back positive for MRSA. Biopsy report showed necrotic fibroadipose tissue with inflammation and fibrosis. Patient is covered with vancomycin. She's been afebrile. Objective - Vital Signs Vital signs: Vital Signs Temp 97.7 F 07/15/21 05:00 Pulse 77 07/15/21 08:17 Resp 16 07/15/21 05:00 BP 180/95 07/15/21 07:30 Pulse Ox 90 L 07/15/21 05:00 Intake & Output 07/14/21 07/15/21 07/15/21 18:59 06:59 18:59 Intake Total 1200 1080 Balance 1200 1080 Intake: Intake, IV Titration 250 Amount Vancomycin 1,500 mg In 250 Sodium Chloride 0.9% 250 ml @ 125 mls/hr IVPB Q12H [facility] Rx#:[id number] Oral 1200 830 Other: Voiding Method Toilet Toilet # Voids 3 1 - Exam General appearance: The patient is alert, oriented, in no acute distress. HET: Head is normocephalic and atraumatic. Neck: Supple without lymphadenopathy. Trachea midline. Extremities: Right lower extremity with dressing clean dry and intact. Cellulitis improving. Neurological: No focal deficits. Strength and sensation are grossly intact. - Labs CBC & Chem 7: 07/12/21 06:16 07/15/21 07:07 Labs: Abnormal Lab Results - Last 24 Hours (Table) 07/14/21 07/14/21 07/15/21 Range/Units 17:10 20:23 07:33 POC Glucose (mg/dL) 202 H 105 H 139 H (75-99) mg/dL Microbiology - Last 24 Hours (Table) 07/09/21 14:04 Blood Culture - Preliminary Blood No Growth after 120 hours Assessment and Plan Assessment: 1. Postop day #4 for right lower extremity excisional debridement 2. Infected right lower extremity diabetic wound 3. Venous insufficiency 4. Diabetes Mellitus Plan: 1. Diet as tolerated 2. Continue IV antibiotics 3. Continue current pain medications and gabapentin 300 mg 3 times a day 4. Wound care consult in place, patient will need outpatient wound care in the clinic Thank you for this consultation, and allowing us take part in the plan of care of your patient during his hospital stay The impression and plan of care has been dictated as directed. Dr. Knox I performed a history and examination of this patient, discussed the same with the dictator. I agree with the dictator's note ,documented as a scribe. Any additional findings or plans will be noted.
[2021-07-15 13:08] LABS: Glucose,Whole Blood 159 mg/dL (75-99)
--- NOTE | 2021-07-15 13:23 | PN ---
PROGRESS NOTE DATE OF SERVICE: 07/15/2021 REASON FOR FOLLOWUP: Right lower extremity infected wound, MRSA. INTERVAL HISTORY: The patient is afebrile. The patient is currently breathing comfortably. Patient denies having any chest pain. No shortness of breath or cough. No abdominal pain. No diarrhea. PHYSICAL EXAMINATION: Blood pressure is 180/95 with a pulse 74, temperature 97.7. She is 90% on room air. General description is a middle-aged female lying in bed in no distress. Respiratory system: Unlabored breathing, clear to auscultation anteriorly. Heart S1, S2. Regular rate and rhythm. Abdomen soft, no tenderness. Right lower extremity wound with slough tissue. Surrounding swelling and redness has improved. No drainage. LABS: Creatinine 0.80. DIAGNOSTIC IMPRESSION AND PLAN: Patient with right lower extremity infected wound status post debridement. Cultures with MRSA. Blood culture negative. Plan is for 2 weeks of IV vancomycin, pharmacy to dose through the PICC line. Advised to follow up in [facility] for continued local wound care and continue supportive care. MMODL / IJN: [id number] /
[2021-07-15 13:52] VITALS: BP 159/89; PULSE 84
--- NOTE | 2021-07-15 14:29 | P.DS ---
Providers Date of admission: 07/09/21 14:37 Expected date of discharge: 07/15/21 Attending physician: Ana Bolanos MD Consults: 07/09/21 17:00 Consult Physician Routine Consulting Provider: Preston Knox Consult Reason/Comments: vascular insufficiency ulcer Do you want consulting provider notified?: Yes 07/11/21 11:38 Consult Physician Routine Consulting Provider: Lilliam Smith Consult Reason/Comments: venous ulcerations w surrounding cellulitis prelim wound cult presumpt MRSA Do you want consulting provider notified?: Yes Primary care physician: Marbin Serrano MD Hospital Course: Discharge Diagnosis: Venous insufficiency ulcerations with surrounding MRSA cellulitis of the right lower extremity Hypokalemia Hypertension Insulin-dependent diabetes mellitus type 2, A1c 7.7 Hypothyroidism Hospital Course: Patient is a 61-year-old female with a past medical history of asthma, hypertension, hypothyroidism, and insulin-dependent diabetes mellitus type 2. She presented to the emergency department with a chief complaint of right lower extremity wounds. Patient reports developing ulceration to right lower extremity approximately one month ago. In the emergency department patient was found to have mild leukocytosis with WBC count of 10.8 and an x-ray of right tib-fib negative for acute osseous abnormality showing no signs of osteomyelitis. Patient admitted under our services with consultation to vascular surgery and wound care. Being treated with IV antibiotics vancomycin and Rocephin. She was seen by infectious disease. Cultures revealed MRSA. She underwent I&D with vascular surgery. She continued to improve was determined stable for discharge. Follow-up: Dr. Malik in 1 week, IV antibiotics in the form of Vanco 2 weeks, follow-up with her PCP on discharge from rehab. Patient seen and examined at bedside. She has her chronic shortness of breath that she gets every fall when the seasons change in it is humid, is having some pain in her right lower extremity, no nausea or vomiting. Vital signs reviewed and stable. General: non toxic, no distress, appears at stated age Derm: warm, dry, dressings in place right lower extremity Head: atraumatic, normocephalic, symmetric Eyes: EOMI, no lid lag, anicteric sclera Mouth: no lip lesion, mucus membranes moist Cardiovascular: S1S2 reg, no murmur, positive posterior tibial pulse bilateral, Lungs: CTA bilateral, no rhonchi, no rales , no accessory muscle use Abdominal: soft, nontender to palpation, no guarding, no appreciable organomegaly Ext: no gross muscle atrophy, no edema, no contractures Neuro: CN II-XI grossly intact, no focal neuro deficits Psych: Alert, oriented, appropriate affect A total of 35 minutes of time were spent preparing this complex discharge summary . Patient Condition at Discharge: Stable Plan - Discharge Summary Discharge Rx Participant: No New Discharge Prescriptions: New Vancomycin 1,500 mg IVPB Q12H each Gabapentin [Neurontin] 300 mg PO TID #90 cap HYDROcodone/APAP 5-325MG [[place] 5-325] 1 each PO Q4HR PRN #18 tab PRN Reason: Pain Continue hydroCHLOROthiazide [Hydrodiuril] 25 mg PO DAILY Tiotropium 18 Mcg/Puff [Spiriva] 1 puff INHALATION RT-DAILY Albuterol Nebulized [Ventolin Nebulized] 3 ml INHALATION RT-Q4H PRN PRN Reason: Shortness Of Breath Insulin Aspart [NovoLOG Flexpen] 20 units SQ AC-TID Levothyroxine Sodium [Synthroid] 137 mcg PO DAILY diphenhydrAMINE [Benadryl] 25 mg PO Q4H PRN PRN Reason: Allergy Symptoms Albuterol Inhaler [Ventolin Hfa Inhaler] 1 puff INHALATION RT-QID PRN PRN Reason: Shortness Of Breath Insulin Detemir [Levemir Flextouch Pen] 70 units SQ HS Discontinued Chlorpheniramine Maleate [Chlor-Trimeton] 4 mg PO Q4H PRN PRN Reason: Allergy Symptoms Discharge Medication List Albuterol Nebulized [Ventolin Nebulized] 3 ml INHALATION RT-Q4H PRN 06/10/14 [History] Tiotropium 18 Mcg/Puff [Spiriva] 1 puff INHALATION RT-DAILY 06/10/14 [History] hydroCHLOROthiazide [Hydrodiuril] 25 mg PO DAILY 06/10/14 [History] Albuterol Inhaler [Ventolin Hfa Inhaler] 1 puff INHALATION RT-QID PRN 07/09/21 [History] Insulin Aspart [NovoLOG Flexpen] 20 units SQ AC-TID 07/09/21 [History] Insulin Detemir [Levemir Flextouch Pen] 70 units SQ HS 07/09/21 [History] Levothyroxine Sodium [Synthroid] 137 mcg PO DAILY 07/09/21 [History] diphenhydrAMINE [Benadryl] 25 mg PO Q4H PRN 07/09/21 [History] Gabapentin [Neurontin] 300 mg PO TID #90 cap 07/15/21 [Rx] HYDROcodone/APAP 5-325MG [[place] 5-325] 1 each PO Q4HR PRN #18 tab 07/15/21 [Rx] Vancomycin 1,500 mg IVPB Q12H each 07/15/21 [Rx] Follow up Appointment(s)/Referral(s): Marbin Serrano MD [Primary Care Provider] - 1-2 days Aleshia Malik DO [STAFF PHYSICIAN] - 1 Week Activity/Diet/Wound Care/Special Instructions: Activity: as tolerated Diet: regular Wound Care: Apply Santyl, saline moistened gauze, dry gauze, rolled gauze secured with paper tape. Wrap with Rm wrap for compression. Start dressings after assessment by vascular surgery follow up with Dr smith in wound care 1 week , call [phone] to make an appointment. Discharge Disposition: HOME SELF-CARE
== END 2021-07-15 15:25 | disposition home or self-care (01) | DRG 623 ==
LOC: EC 12:46 → 5NMEDONC 14:37
PROVIDERS: ADMIT Internal Medicine; ATTEND Internal Medicine
PROC: 0KBS0ZZ Excision of Right Lower Leg Muscle, Open Approach (ICD-10-PCS; principal; 2021-07-11 07:30)
PROC: 02HV33Z Insertion of Infusion Device into Superior Vena Cava, Percutaneous Approach (ICD-10-PCS; 2021-07-12)
DX: E11.628 Type 2 diabetes mellitus with other skin complications (principal); L03.115 Cellulitis of right lower limb; L97.212 Non-pressure chronic ulcer of right calf with fat layer exposed; Z16.24 Resistance to multiple antibiotics; E11.622 Type 2 diabetes mellitus with other skin ulcer; B95.62 Methicillin resistant Staphylococcus aureus infection as the cause of diseases classified elsewhere; Z79.4 Long term (current) use of insulin; E03.9 Hypothyroidism, unspecified; K21.9 Gastro-esophageal reflux disease without esophagitis; E78.5 Hyperlipidemia, unspecified; E87.6 Hypokalemia; F17.210 Nicotine dependence, cigarettes, uncomplicated; F41.9 Anxiety disorder, unspecified; I10 Essential (primary) hypertension; I87.2 Venous insufficiency (chronic) (peripheral); I87.309 Chronic venous hypertension (idiopathic) without complications of unspecified lower extremity; J45.909 Unspecified asthma, uncomplicated; M79.7 Fibromyalgia; N95.1 Menopausal and female climacteric states; Z79.890 Hormone replacement therapy; Z79.899 Other long term (current) drug therapy; Z20.822 Contact with and (suspected) exposure to COVID-19; Z88.1 Allergy status to other antibiotic agents; Z88.5 Allergy status to narcotic agent; Z88.0 Allergy status to penicillin; Z88.2 Allergy status to sulfonamides; Z88.8 Allergy status to other drugs, medicaments and biological substances; Z90.49 Acquired absence of other specified parts of digestive tract; Z98.890 Other specified postprocedural states
CPT/HCPCS: 36415; 36573; 80048; 80053; 80061; 80202; 82565; 83036; 83605; 83735; 84439; 84443; 85025; 85027; 85652; 86140; 87040; 87070; 87075; 87077; 87186; 87205; 87635; 88304; 93970; 94640; 94760; 96374; 99285

== ENCOUNTER 2021-07-18 19:33 | Emergency (ER) | payer BC ==
[2021-07-18 19:53] VITALS: RESP 18
[2021-07-18] MEDS ORDERED: SODIUM CHLORIDE 0.9% 500 ML 500 ML IV STA (20:19)
[2021-07-18] MEDS ORDERED: HYDROcodone/APAP 5-325MG 1 EACH TAB PO STA (21:15)
[2021-07-18 21:29] LABS: Albumin 3.7 g/dL (3.5-5.0); Calcium 9.2 mg/dL (8.4-10.2); Magnesium 2.1 mg/dL (1.6-2.3); Total Bilirubin 0.3 mg/dL (0.2-1.3); Total Protein 7.6 g/dL (6.3-8.2)
[2021-07-18] MEDS ORDERED: lisinopriL 10 MG TAB PO STA (21:31)
[2021-07-18 21:34] LABS: Partial Thromboplastin Time 24.4 sec (22.0-30.0)
--- NOTE | 2021-07-18 21:34 | ED ---
General Adult HPI - General Chief complaint: Recheck/Abnormal Lab/Rx Stated complaint: Hypertension Time Seen by Provider: 07/18/21 19:51 Source: patient, RN notes reviewed, old records reviewed Mode of arrival: EMS Limitations: no limitations - History of Present Illness Initial comments: 61-year-old female presented from [facility] for elevated blood pressure. Patient has history of high blood pressure she is currently on hydrochlorothiazide. She states that she's had a difficult past 2 weeks. She was initially admitted to 2 different nursing homes. She had been stressed by all of the recent changes. Her blood pressure has been quite high and she was sent in for evaluation. She does report some anxiety. No chest pain or dyspnea. No abdominal pain. No headache. No focal numbness or weakness. - Related Data Home Medications Medication Instructions Recorded Confirmed Albuterol Nebulized [Ventolin 3 ml INHALATION RT-Q4H PRN 06/10/14 07/09/21 Nebulized] Tiotropium 18 Mcg/Puff [Spiriva] 1 puff INHALATION RT-DAILY 06/10/14 07/09/21 hydroCHLOROthiazide [Hydrodiuril] 25 mg PO DAILY 06/10/14 07/09/21 Albuterol Inhaler [Ventolin Hfa 1 puff INHALATION RT-QID PRN 07/09/21 07/09/21 Inhaler] Insulin Aspart [NovoLOG Flexpen] 20 units SQ AC-TID 07/09/21 07/09/21 Insulin Detemir [Levemir Flextouch 70 units SQ HS 07/09/21 07/09/21 Pen] Levothyroxine Sodium [Synthroid] 137 mcg PO DAILY 07/09/21 07/09/21 diphenhydrAMINE [Benadryl] 25 mg PO Q4H PRN 07/09/21 07/09/21 Previous Rx's Medication Instructions Recorded Gabapentin [Neurontin] 300 mg PO TID #90 cap 07/15/21 HYDROcodone/APAP 5-325MG [[place] 1 each PO Q4HR PRN #18 tab 07/15/21 5-325] Vancomycin 1,500 mg IVPB Q12H each 07/15/21 lisinopriL [Zestril] 10 mg PO DAILY 30 Days #30 tab 07/18/21 Allergies Allergy/AdvReac Type Severity Reaction Status Date / Time amlodipine besylate Allergy Rash/Hives Verified 07/18/21 19:53 [From Norvasc] azithromycin [From Zithromax] Allergy Unknown Verified 07/18/21 19:53 clindamycin Allergy Unknown Verified 07/18/21 19:53 codeine Allergy Nausea & Verified 07/18/21 19:53 Vomiting doxycycline Allergy Rash/Hives Verified 07/18/21 19:53 hydrochlorothiazide Allergy Rash/Hives Verified 07/18/21 19:53 [From Hyzaar] levofloxacin [From Levaquin] Allergy Unknown Verified 07/18/21 19:53 losartan potassium Allergy Unknown Verified 07/18/21 19:53 [From Hyzaar] Penicillins Allergy Rash/Hives Verified 07/18/21 19:53 Sulfa (Sulfonamide Allergy Unknown Verified 07/18/21 19:53 Antibiotics) Review of Systems ROS Statement: Those systems with pertinent positive or pertinent negative responses have been documented in the HPI. ROS Other: All systems not noted in ROS Statement are negative. Past Medical History Past Medical History: Asthma, Diabetes Mellitus, Fibromyalgia, GERD/Reflux, Hypertension, Thyroid Disorder History of Any Multi-Drug Resistant Organisms: MRSA Date of last positivie culture/infection: 07/11/21 MDRO Source:: Right Leg Past Surgical History: Appendectomy Additional Past Surgical History / Comment(s): bowel surgery, D&C, colostomy with reversile Past Psychological History: Anxiety Smoking Status: Current some day smoker, Never smoker Past Alcohol Use History: None Reported Past Drug Use History: None Reported General Exam Limitations: no limitations General appearance: alert, in no apparent distress Head exam: Present: atraumatic, normocephalic Eye exam: Present: normal appearance, PERRL ENT exam: Present: normal exam Neck exam: Present: normal inspection. Absent: tenderness, meningismus Respiratory exam: Present: normal lung sounds bilaterally. Absent: respiratory distress, wheezes Cardiovascular Exam: Present: regular rate, normal rhythm GI/Abdominal exam: Present: soft. Absent: distended, tenderness, guarding Extremities exam: Present: normal capillary refill, other (dressing clean dry and intact). Absent: pedal edema Neurological exam: Present: alert, oriented X3 Psychiatric exam: Present: normal affect, normal mood Skin exam: Present: warm, dry, intact. Absent: cyanosis, diaphoretic Course Vital Signs 07/18/21 07/18/21 07/18/21 19:50 19:56 20:15 Temperature 98.3 F Pulse Rate 86 87 Pulse Rate [ 87 Desktop Engineer ] Respiratory 18 18 Rate Blood Pressure 172/111 197/108 O2 Sat by Pulse 93 L 97 Oximetry 07/18/21 20:50 Temperature Pulse Rate 85 Pulse Rate [ Desktop Engineer ] Respiratory 18 Rate Blood Pressure 174/114 O2 Sat by Pulse 96 Oximetry EKG Findings - EKG Comments: EKG Findings:: levationEKG: Normal sinus rhythm no ST segment elevation, rate of 82, CO interval 148, QRS duration 74, QTC 481 Medical Decision Making - Medical Decision Making 61-year-old female presenting with a symptomatic hypertension. Blood pressure elevated in the emergency department. I did obtain laboratory testing including CBC, CMP, troponin as well as an EKG. No acute abnormalities. Patient given first dose of lisinopril emergency department. She will continue her hydrochlorothiazide. They will monitor blood pressure at the [facility] where [facility]. She will follow with her primary care physician. - Lab Data Result diagrams: 07/18/21 20:50 07/18/21 20:50 Lab Results 07/18/21 07/18/21 07/18/21 Range/Units 20:50 20:50 20:50 WBC 8.2 (3.8-10.6) k/uL RBC 5.19 (3.80-5.40) m/uL Hgb 14.5 (11.4-16.0) gm/dL Hct 45.8 (34.0-46.0) % MCV 88.3 (80.0-100.0) fL MCH 28.0 (25.0-35.0) pg MCHC 31.7 (31.0-37.0) g/dL RDW 14.4 (11.5-15.5) % Plt Count 309 (150-450) k/uL MPV 8.0 Neutrophils % 70 % Lymphocytes % 19 % Monocytes % 4 % Eosinophils % 4 % Basophils % 1 % Neutrophils # 5.7 (1.3-7.7) k/uL Lymphocytes # 1.5 (1.0-4.8) k/uL Monocytes # 0.4 (0-1.0) k/uL Eosinophils # 0.3 (0-0.7) k/uL Basophils # 0.1 (0-0.2) k/uL PT 11.0 (9.0-12.0) sec INR 1.0 (<1.2) APTT 24.4 (22.0-30.0) sec Sodium 137 (137-145) mmol/L Potassium 4.0 (3.5-5.1) mmol/L Chloride 100 (98-107) mmol/L Carbon Dioxide 29 (22-30) mmol/L Anion Gap 8 mmol/L BUN 12 (7-17) mg/dL Creatinine 0.90 (0.52-1.04) mg/dL Est GFR (CKD-EPI)AfAm 80 (>60 ml/min/1.73 sqM) Est GFR (CKD-EPI)NonAf 70 (>60 ml/min/1.73 sqM) Glucose 125 H (74-99) mg/dL Calcium 9.2 (8.4-10.2) mg/dL Magnesium 2.1 (1.6-2.3) mg/dL Total Bilirubin 0.3 (0.2-1.3) mg/dL AST 28 (14-36) U/L ALT 24 (4-34) U/L Alkaline Phosphatase 147 H (38-126) U/L Troponin I (0.000-0.034) ng/mL Total Protein 7.6 (6.3-8.2) g/dL Albumin 3.7 (3.5-5.0) g/dL 07/18/21 Range/Units 20:50 WBC (3.8-10.6) k/uL RBC (3.80-5.40) m/uL Hgb (11.4-16.0) gm/dL Hct (34.0-46.0) % MCV (80.0-100.0) fL MCH (25.0-35.0) pg MCHC (31.0-37.0) g/dL RDW (11.5-15.5) % Plt Count (150-450) k/uL MPV Neutrophils % % Lymphocytes % % Monocytes % % Eosinophils % % Basophils % % Neutrophils # (1.3-7.7) k/uL Lymphocytes # (1.0-4.8) k/uL Monocytes # (0-1.0) k/uL Eosinophils # (0-0.7) k/uL Basophils # (0-0.2) k/uL PT (9.0-12.0) sec INR (<1.2) APTT (22.0-30.0) sec Sodium (137-145) mmol/L Potassium (3.5-5.1) mmol/L Chloride (98-107) mmol/L Carbon Dioxide (22-30) mmol/L Anion Gap mmol/L BUN (7-17) mg/dL Creatinine (0.52-1.04) mg/dL Est GFR (CKD-EPI)AfAm (>60 ml/min/1.73 sqM) Est GFR (CKD-EPI)NonAf (>60 ml/min/1.73 sqM) Glucose (74-99) mg/dL Calcium (8.4-10.2) mg/dL Magnesium (1.6-2.3) mg/dL Total Bilirubin (0.2-1.3) mg/dL AST (14-36) U/L ALT (4-34) U/L Alkaline Phosphatase (38-126) U/L Troponin I <0.012 (0.000-0.034) ng/mL Total Protein (6.3-8.2) g/dL Albumin (3.5-5.0) g/dL Disposition Clinical Impression: Hypertension Disposition: HOME SELF-CARE Condition: Fair Instructions (If sedation given, give patient instructions): Hypertension (ED) Prescriptions: lisinopriL [Zestril] 10 mg PO DAILY 30 Days #30 tab Is patient prescribed a controlled substance at d/c from ED?: No Referrals: Barney Mo MD [Primary Care Provider] - 1-2 days Time of Disposition: 21:59
[2021-07-18 21:44] LABS: Basophils # (A) 0.1 k/uL (0-0.2); Basophils % (A) 1 %; Eosinophils # (A) 0.3 k/uL (0-0.7); Eosinophils % (A) 4 %; HCT 45.8 % (34.0-46.0); HGB 14.5 gm/dL (11.4-16.0); Lymphocytes # (A) 1.5 k/uL (1.0-4.8); Lymphocytes % (A) 19 %; MCHC 31.7 g/dL (31.0-37.0); MCV 88.3 fL (80.0-100.0); Monocytes # (A) 0.4 k/uL (0-1.0); Monocytes % (A) 4 %; Neutrophils # (A) 5.7 k/uL (1.3-7.7); Neutrophils % (A) 70 %; Platelet Count 309 k/uL (150-450); RBC 5.19 m/uL (3.80-5.40); RDW 14.4 % (11.5-15.5); WBC 8.2 k/uL (3.8-10.6)
[2021-07-18] MEDS ORDERED: METOPROLOL TARTRATE 25 MG TAB PO STA (22:06)
[2021-07-18 22:23] VITALS: TEMP 97.6
[2021-07-19] MEDS ORDERED: IPRATROPIUM-ALBUTEROL 3 ML NEB INHALATION STA (01:47)
[2021-07-19] MEDS ORDERED: HYDROcodone/APAP 5-325MG 1 EACH TAB PO STA (01:47)
[2021-07-19 02:16] VITALS: BP 175/81; PULSE 72
== END 2021-07-19 08:44 | disposition home or self-care (01) ==
LOC: EC 19:33
DX: I10 Essential (primary) hypertension (principal); E11.9 Type 2 diabetes mellitus without complications; J45.909 Unspecified asthma, uncomplicated; K21.9 Gastro-esophageal reflux disease without esophagitis; M79.7 Fibromyalgia; F41.9 Anxiety disorder, unspecified; Z79.4 Long term (current) use of insulin; Z79.890 Hormone replacement therapy; Z79.51 Long term (current) use of inhaled steroids; Z79.899 Other long term (current) drug therapy; Z88.0 Allergy status to penicillin; Z88.1 Allergy status to other antibiotic agents; Z88.2 Allergy status to sulfonamides; Z90.49 Acquired absence of other specified parts of digestive tract
CPT/HCPCS: 36415; 80053; 83735; 84484; 85025; 85610; 85730; 93005; 94640; 99284

== ENCOUNTER 2021-10-11 14:53 | Inpatient (IN) | payer BC ==
[2021-10-11] MEDS ORDERED: SODIUM CHLORIDE 0.9% 1,000 ML IV STA (17:14)
[2021-10-11] MEDS ORDERED: GABAPENTIN 300 MG CAP PO STA (17:17)
[2021-10-11] MEDS ORDERED: ACETAMINOPHEN TAB 500 MG TAB PO STA (17:17)
[2021-10-11] MEDS ORDERED: VANCOMYCIN IV PER PHARMACY 1 EACH MISC MISCELLANE PRN (17:19)
[2021-10-11] MEDS ORDERED: VANCOMYCIN 1,500 MG in SODIUM CHLORIDE 0.9% 250 ML IVPB STA (17:25)
[2021-10-11] MEDS ORDERED: CEFEPIME 2 GM in SODIUM CHLORIDE 0.9% 100 ML IVPB SCH (18:00)
[2021-10-11] MEDS: metroNIDAZOLE-NS PMX 500 MG in SALINE 1 100ML.BAG IVPB SCH (18:18)
[2021-10-11 18:31] LABS: Basophils # (A) 0.1 k/uL (0-0.2); Basophils % (A) 1 %; Eosinophils # (A) 0.1 k/uL (0-0.7); Eosinophils % (A) 1 %; HCT 48.5 % (34.0-46.0); Lymphocytes # (A) 1.3 k/uL (1.0-4.8); Lymphocytes % (A) 16 %; MCHC 33.1 g/dL (31.0-37.0); MCV 90.6 fL (80.0-100.0); Mean Platelet Volume 9.4; Monocytes # (A) 0.3 k/uL (0-1.0); Monocytes % (A) 4 %; Neutrophils # (A) 6.4 k/uL (1.3-7.7); Neutrophils % (A) 77 %; Platelet Count 264 k/uL (150-450); RBC 5.35 m/uL (3.80-5.40); RDW 14.5 % (11.5-15.5); WBC 8.3 k/uL (3.8-10.6)
[2021-10-11 18:32] LABS: ALT 15 U/L (4-34); AST 37 U/L (14-36); African American GFR (CKD) >90 (>60 ml/min/1.73 sqM); Albumin 4.5 g/dL (3.5-5.0); Alkaline Phosphatase 120 U/L (38-126); Anion Gap 11 mmol/L; Blood Urea Nitrogen 21 mg/dL (7-17); Calcium 9.3 mg/dL (8.4-10.2); Carbon Dioxide 27 mmol/L (22-30); Chloride 98 mmol/L (98-107); Glucose 269 mg/dL (74-99); Non-African American GFR(CKD) 82 (>60 ml/min/1.73 sqM); Sodium 136 mmol/L (137-145); Total Bilirubin 1.4 mg/dL (0.2-1.3); Total Protein 8.6 g/dL (6.3-8.2)
[2021-10-11 18:37] LABS: Potassium 4.6 mmol/L (3.5-5.1)
[2021-10-11] MEDS ORDERED: NALOXONE 0.4 MG/ML 1 ML VIAL IV PRN (18:50)
--- NOTE | 2021-10-11 18:50 | ED ---
General Adult HPI - General Chief complaint: Wound/Laceration Stated complaint: R leg sore-sent by PCP Time Seen by Provider: 10/11/21 16:42 Source: patient, RN notes reviewed, old records reviewed Mode of arrival: wheelchair Limitations: no limitations - History of Present Illness Initial comments: Patient is a 61-year-old female with past medical history remarkable for diabetes, asthma, fibromyalgia, thyroid disorder, hypertension presents emergency Department complaining of worsening right lower extremity wound. She previously required debridement of the right lower extremity diabetic wound located over her right carrillo. This is back in June. Since that time she has been seen wound care, however over the last few days to weeks she has seen the wound get worse. States she is compliant with following up with wound care. She saw her PCP today, who recommended she come to the emergency department for evaluation and antibiotics. There is a purulent discharge. Denies any distal neurovascular change. His no other acute complaints at this time other than tenderness around the infected wound. Was previously admitted at this hospital for debridement by Dr. Malik as well as IV antibiotics. She denies any fevers, chills, nausea, vomiting. His no other acute complaints at this time. Presents to the department for further evaluation.I evaluated the patient when she was placed in a room. - Related Data Home Medications Medication Instructions Recorded Confirmed Albuterol Nebulized [Ventolin 3 ml INHALATION RT-Q4H PRN 06/10/14 10/11/21 Nebulized] Tiotropium 18 Mcg/Puff [Spiriva] 1 puff INHALATION RT-DAILY 06/10/14 10/11/21 hydroCHLOROthiazide [Hydrodiuril] 25 mg PO DAILY 06/10/14 10/11/21 Albuterol Inhaler [Ventolin Hfa 2 puff INHALATION RT-QID PRN 07/09/21 10/11/21 Inhaler] Insulin Aspart [NovoLOG Flexpen] 20 units SQ AC-TID 07/09/21 10/11/21 Insulin Detemir [Levemir Flextouch 70 units SQ HS 07/09/21 10/11/21 Pen] Levothyroxine Sodium [Synthroid] 137 mcg PO DAILY 07/09/21 10/11/21 diphenhydrAMINE [Benadryl] 25 mg PO Q4H PRN 07/09/21 10/11/21 ALPRAZolam [Xanax] 0.25 mg PO BID PRN 10/11/21 10/11/21 Ascorbic Acid [Vitamin C] 1,000 mg PO DAILY 10/11/21 10/11/21 [id number]-[id number] [id number] 2 tab PO Q4HR PRN 10/11/21 10/11/21 [Excedrin] Collagenase [Santyl Ointment] 1 applic TOPICAL DAILY 10/11/21 10/11/21 Gabapentin [Neurontin] 300 mg PO TID PRN 10/11/21 10/11/21 HYDROcodone/APAP 5-325MG [[place] 1 tab PO TID PRN 10/11/21 10/11/21 5-325] Ibuprofen [Motrin Ib] 800 mg PO Q8H PRN 10/11/21 10/11/21 Simethicone [Gas-X] 125 mg PO ACHS PRN 10/11/21 10/11/21 hydrALAZINE HCL [Apresoline] 50 mg PO TID 10/11/21 10/11/21 Previous Rx's Medication Instructions Recorded Metoprolol Tartrate [Lopressor] 25 mg PO BID 30 Days #60 tablet 07/18/21 Allergies Allergy/AdvReac Type Severity Reaction Status Date / Time amlodipine besylate Allergy Rash/Hives Verified 10/11/21 18:50 [From Norvasc] azithromycin [From Zithromax] Allergy Unknown Verified 10/11/21 18:50 clindamycin Allergy Unknown Verified 10/11/21 18:50 codeine Allergy Nausea & Verified 10/11/21 18:50 Vomiting doxycycline Allergy Rash/Hives Verified 10/11/21 18:50 hydrochlorothiazide Allergy Rash/Hives Verified 10/11/21 18:50 [From Hyzaar] levofloxacin [From Levaquin] Allergy Unknown Verified 10/11/21 18:50 lisinopril Allergy Unknown Verified 10/11/21 18:50 losartan potassium Allergy Unknown Verified 10/11/21 18:50 [From Hyzaar] Penicillins Allergy Rash/Hives Verified 10/11/21 18:50 Sulfa (Sulfonamide Allergy Unknown Verified 10/11/21 18:50 Antibiotics) Review of Systems ROS Statement: Those systems with pertinent positive or pertinent negative responses have been documented in the HPI. Review of Systems: CONST: Denies fever EYES: Denies blurry vision ENT: Denies nasal congestion C/V: Denies Chest pain RESP: Denies shortness of breath GI: Denies abdominal pain : Denies dysuria SKIN: Endorses purulent right lower extremity wound. MSK: Endorses right lower extremity wound pain. NEURO: Denies headache ROS Other: All systems not noted in ROS Statement are negative. Past Medical History Past Medical History: Asthma, Diabetes Mellitus, Fibromyalgia, GERD/Reflux, Hypertension, Thyroid Disorder History of Any Multi-Drug Resistant Organisms: MRSA Date of last positivie culture/infection: 07/11/21 MDRO Source:: Right Leg Past Surgical History: Appendectomy Additional Past Surgical History / Comment(s): bowel surgery, D&C, colostomy with reversile Past Psychological History: Anxiety Smoking Status: Current some day smoker, Never smoker Past Alcohol Use History: None Reported Past Drug Use History: None Reported General Exam - General Exam Comments Initial Comments: General: Appears in no acute distress. HEAD: Normal with no signs of head trauma. EYES: PERRLA, EOMI, conjunctiva normal, no discharge. ENT: Hearing grossly intact, normal oropharynx. RESPIRATORY: Clear breath sounds bilaterally. No wheezes, rales, or rhonchi. C/V: Regular rate and rhythm. S1 and S2 auscultated, no edema, peripheral pulses 2+ and intact throughout ABD: Abd is soft, nontender, nondistended EXT: Normal range of motion, no obvious deformity SKIN: Patient has approximate 4 cm x 4 cm open wound over the distal anterior and medial right carrillo 2. There is purulent drainage. NEURO: Alert and oriented 4. No focal sensory strength deficits. Limitations: no limitations Course Vital Signs 10/11/21 10/11/21 10/11/21 14:59 18:26 20:09 Temperature 98.2 F Pulse Rate 75 68 73 Respiratory 18 20 18 Rate Blood Pressure 185/95 185/99 182/100 O2 Sat by Pulse 96 95 94 L Oximetry Medical Decision Making - Medical Decision Making Based on the patient's presentation and physical exam, does appear that she is experiencing a acute infection of a chronic diabetic leg wound. We will obtain broad workup, including blood cultures as well as wound cultures. X-ray of the right lower extremity also be obtained rule out osteomyelitis. Patient was started on IV Vanco, cefepime, Flagyl for her wound, that she has multiple anabiotic ALLERGIES. This is also based on the prior wound culture. She'll be given 1 L fluid bolus as well as analgesia. She was in agreement this plan. Patient's laboratory studies are remarkable for a mild hyperglycemia 269. P atient's lactate is within normal limits. Labs are otherwise unremarkable. X- ray revealed no signs of osteomyelitis. Patient will be admitted at this time. She was in agreement this plan. Spoke with the admitting team, city call [facility] who accepted the patient. We will consult Dr. Malik who performed a debridement previously, as well as infectious disease DrWali. - Lab Data Result diagrams: 10/11/21 18:11 10/11/21 18:11 Lab Results 10/11/21 10/11/21 10/11/21 Range/Units 18:11 18:11 18:11 WBC 8.3 (3.8-10.6) k/uL RBC 5.35 (3.80-5.40) m/uL Hgb 16.0 (11.4-16.0) gm/dL Hct 48.5 H (34.0-46.0) % MCV 90.6 (80.0-100.0) fL MCH 30.0 (25.0-35.0) pg MCHC 33.1 (31.0-37.0) g/dL RDW 14.5 (11.5-15.5) % Plt Count 264 (150-450) k/uL MPV 9.4 Neutrophils % 77 % Lymphocytes % 16 % Monocytes % 4 % Eosinophils % 1 % Basophils % 1 % Neutrophils # 6.4 (1.3-7.7) k/uL Lymphocytes # 1.3 (1.0-4.8) k/uL Monocytes # 0.3 (0-1.0) k/uL Eosinophils # 0.1 (0-0.7) k/uL Basophils # 0.1 (0-0.2) k/uL Sodium 136 L (137-145) mmol/L Potassium 4.6 (3.5-5.1) mmol/L Chloride 98 (98-107) mmol/L Carbon Dioxide 27 (22-30) mmol/L Anion Gap 11 mmol/L BUN 21 H (7-17) mg/dL Creatinine 0.79 (0.52-1.04) mg/dL Est GFR (CKD-EPI)AfAm >90 (>60 ml/min/1.73 sqM) Est GFR (CKD-EPI)NonAf 82 (>60 ml/min/1.73 sqM) Glucose 269 H (74-99) mg/dL Plasma Lactic Acid Shen 1.7 (0.7-2.0) mmol/L Calcium 9.3 (8.4-10.2) mg/dL Total Bilirubin 1.4 H (0.2-1.3) mg/dL AST 37 H (14-36) U/L ALT 15 (4-34) U/L Alkaline Phosphatase 120 (38-126) U/L Total Protein 8.6 H (6.3-8.2) g/dL Albumin 4.5 (3.5-5.0) g/dL Disposition Clinical Impression: Diabetic infection of right foot, Wound infection, Cellulitis Disposition: ADMITTED IP TO THIS [facility] Condition: Serious
--- NOTE | 2021-10-11 19:34 | XR ---
EXAMINATION TYPE: XR tibia fibula RT DATE OF EXAM: 10/11/2021 6:50 PM INDICATION: Patient age:Female; 61 years old; Reason for study: wound, evaluate for osteomyelitis;. COMPARISON: Radiograph 07/09/2021 TECHNIQUE: The right tibia/fibula was examined in AP and lateral projections. FINDINGS: Skin defect along the medial aspect of the distal right leg. No evidence of osseous erosion or lucency within the subcutaneous gas. No evidence of any acute osseous pathology, joint dislocatio n IMPRESSION: 1. No evidence of osteomyelitis. 2. Skin defect/wound. 3. No evidence for fracture.
[2021-10-11] MEDS: SODIUM CHLORIDE 0.9% 1,000 ML IV SCH (19:35)
[2021-10-11] MEDS: METOPROLOL TARTRATE 25 MG TAB PO SCH (20:26)
[2021-10-11] MEDS: hydrALAZINE HCL 50 MG TAB PO SCH (20:26)
[2021-10-11 21:04] LABS: Glucose,Whole Blood 226 mg/dL (75-99)
[2021-10-11] MEDS: INSULIN ASPART (NovoLOG) 100 UNIT/ML VIAL SQ SCH (22:55)
[2021-10-11] MEDS: CEFEPIME 2 GM in SODIUM CHLORIDE 0.9% 100 ML IVPB SCH (22:55)
[2021-10-11] MEDS: HEPARIN SODIUM,PORCINE/PF 5,000 UNIT/0.5 ML SYRINGE SQ SCH (22:55)
[2021-10-11] MEDS: ALPRAZolam 0.25 MG TAB PO PRN (22:55)
[2021-10-11] MEDS: ALBUTEROL NEBULIZED 2.5 MG/3 ML INHALATION PRN (23:32)
[2021-10-12] MEDS: ACETAMINOPHEN TAB 325 MG TAB PO PRN (01:40)
[2021-10-12] MEDS: metroNIDAZOLE-NS PMX 500 MG in SALINE 1 100ML.BAG IVPB SCH ×3 (01:41→17:25)
[2021-10-12] MEDS: ASPIRIN-ACET-CAFF 250-250-65MG 1 EACH TAB PO PRN (06:11)
[2021-10-12] MEDS: VANCOMYCIN 1,500 MG in SODIUM CHLORIDE 0.9% 250 ML IVPB SCH ×2 (06:11→19:15)
[2021-10-12] MEDS: LEVOTHYROXINE 137 MCG TAB PO SCH (06:11)
[2021-10-12] MEDS: SODIUM CHLORIDE 0.9% 1,000 ML IV SCH ×2 (06:20→18:17)
[2021-10-12 07:02] LABS: Glucose,Whole Blood 180 mg/dL (75-99)
[2021-10-12] MEDS: HEPARIN SODIUM,PORCINE/PF 5,000 UNIT/0.5 ML SYRINGE SQ SCH ×3 (07:28→23:33)
[2021-10-12] MEDS: hydrALAZINE HCL 50 MG TAB PO SCH ×3 (07:28→20:09)
[2021-10-12] MEDS: METOPROLOL TARTRATE 25 MG TAB PO SCH ×2 (07:28→20:09)
[2021-10-12] MEDS: INSULIN ASPART (NovoLOG) 100 UNIT/ML VIAL SQ SCH ×4 (07:28→21:37)
[2021-10-12] MEDS: ASCORBIC ACID 500 MG TAB PO SCH (07:29)
[2021-10-12] MEDS: hydroCHLOROthiazide 25 MG TAB PO SCH (07:29)
--- NOTE | 2021-10-12 10:48 | P.GSCN ---
History of Present Illness Consult date: 10/12/21 Reason for Consult: chronic right leg wound with infection History of present illness: 61-year-old female with past medical history remarkable for diabetes, asthma, fibromyalgia, thyroid disorder, hypertension presents emergency Department com plaining of worsening right lower extremity wound. She previously had a debridement of the right lower extremity diabetic wound by Dr. Malik in June. Since that time she has been following in the wound care center but missed her last appointment and noted worsening pain and redness. She was seen by her primary care physician and sent in for IV antibiotics. She denies any fevers, chills, nausea, vomiting. His no other acute complaints at this time. Review of Systems All systems: negative (what is mentioned in the PMH or HPI) Past Medical History Past Medical History: Asthma, Diabetes Mellitus, Fibromyalgia, GERD/Reflux, Hypertension, Thyroid Disorder History of Any Multi-Drug Resistant Organisms: MRSA Year Discovered:: 07/11/21 MDRO Source:: Right Leg Past Surgical History: Appendectomy Additional Past Surgical History / Comment(s): bowel surgery, D&C, colostomy with reversile Past Anesthesia/Blood Transfusion Reactions: Previous Problems w/ Anesthesia Past Psychological History: Anxiety Smoking Status: Current some day smoker, Never smoker Past Alcohol Use History: None Reported Past Drug Use History: None Reported Medications and Allergies Home Medications Medication Instructions Recorded Confirmed Type Albuterol Nebulized [Ventolin 3 ml INHALATION RT-Q4H PRN 06/10/14 10/11/21 History Nebulized] Tiotropium 18 Mcg/Puff [Spiriva] 1 puff INHALATION RT-DAILY 06/10/14 10/11/21 History hydroCHLOROthiazide [Hydrodiuril] 25 mg PO DAILY 06/10/14 10/11/21 History Albuterol Inhaler [Ventolin Hfa 2 puff INHALATION RT-QID PRN 07/09/21 10/11/21 History Inhaler] Insulin Aspart [NovoLOG Flexpen] 20 units SQ AC-TID 07/09/21 10/11/21 History Insulin Detemir [Levemir Flextouch 70 units SQ HS 07/09/21 10/11/21 History Pen] Levothyroxine Sodium [Synthroid] 137 mcg PO DAILY 07/09/21 10/11/21 History diphenhydrAMINE [Benadryl] 25 mg PO Q4H PRN 07/09/21 10/11/21 History Metoprolol Tartrate [Lopressor] 25 mg PO BID 30 Days #60 tablet 07/18/21 10/11/21 Rx ALPRAZolam [Xanax] 0.25 mg PO BID PRN 10/11/21 10/11/21 History Ascorbic Acid [Vitamin C] 1,000 mg PO DAILY 10/11/21 10/11/21 History [id number]-[id number]-[id number] [id number] 2 tab PO Q4HR PRN 10/11/21 10/11/21 History [Excedrin] Collagenase [Santyl Ointment] 1 applic TOPICAL DAILY 10/11/21 10/11/21 History Gabapentin [Neurontin] 300 mg PO TID PRN 10/11/21 10/11/21 History HYDROcodone/APAP 5-325MG [[place] 1 tab PO TID PRN 10/11/21 10/11/21 History 5-325] Ibuprofen [Motrin Ib] 800 mg PO Q8H PRN 10/11/21 10/11/21 History Simethicone [Gas-X] 125 mg PO ACHS PRN 10/11/21 10/11/21 History hydrALAZINE HCL [Apresoline] 50 mg PO TID 10/11/21 10/11/21 History Allergies Allergy/AdvReac Type Severity Reaction Status Date / Time amlodipine besylate Allergy Rash/Hives Verified 10/11/21 18:50 [From [facility]] azithromycin [From Zithromax] Allergy Unknown Verified 10/11/21 18:50 clindamycin Allergy Unknown Verified 10/11/21 18:50 codeine Allergy Nausea & Verified 10/11/21 18:50 Vomiting doxycycline Allergy Rash/Hives Verified 10/11/21 18:50 hydrochlorothiazide Allergy Rash/Hives Verified 10/11/21 18:50 [From Hyzaar] levofloxacin [From Levaquin] Allergy Unknown Verified 10/11/21 18:50 lisinopril Allergy Unknown Verified 10/11/21 18:50 losartan potassium Allergy Unknown Verified 10/11/21 18:50 [From Hyzaar] Penicillins Allergy Rash/Hives Verified 10/11/21 18:50 Sulfa (Sulfonamide Allergy Unknown Verified 10/11/21 18:50 Antibiotics) Surgical - Exam Vital Signs Temp Pulse Resp BP Pulse Ox 98.2 F 75 18 185/95 96 10/11/21 14:59 10/11/21 14:59 10/11/21 14:59 10/11/21 14:59 10/11/21 14:59 palpable right dp and pt pulses. Good capillary refill. Large right anterior carrillo wound with fibrinous tissue and mild drainage. Surrounding erythema and tenderness to palpation. No ischemia. - General well developed, well nourished, moderate pain - Eyes PERRL - ENT normal pinna, normal nares - Respiratory normal expansion, normal respiratory effort - Cardiovascular Rhythm: regular - Abdomen Abdomen: soft, non tender - Neurologic normal coordination, normal sensation - Psychiatric oriented to time, oriented to person, oriented to place, speech is normal Results - Labs 10/11/21 18:11 10/11/21 18:11 Abnormal Lab Results - Last 24 Hours (Table) 10/11/21 10/11/21 10/11/21 Range/Units 18:11 18:11 21:02 Hct 48.5 H (34.0-46.0) % Sodium 136 L (137-145) mmol/L BUN 21 H (7-17) mg/dL Glucose 269 H (74-99) mg/dL POC Glucose (mg/dL) 226 H (75-99) mg/dL Total Bilirubin 1.4 H (0.2-1.3) mg/dL AST 37 H (14-36) U/L Total Protein 8.6 H (6.3-8.2) g/dL 10/12/21 Range/Units 07:01 Hct (34.0-46.0) % Sodium (137-145) mmol/L BUN (7-17) mg/dL Glucose (74-99) mg/dL POC Glucose (mg/dL) 180 H (75-99) mg/dL Total Bilirubin (0.2-1.3) mg/dL AST (14-36) U/L Total Protein (6.3-8.2) g/dL Microbiology - Last 24 Hours (Table) 10/11/21 18:11 Gram Stain - Preliminary Leg - Right Wound Culture - Preliminary Diabetes panel 10/11/21 Range/Units 18:11 Sodium 136 L (137-145) mmol/L Potassium 4.6 (3.5-5.1) mmol/L Chloride 98 (98-107) mmol/L Carbon Dioxide 27 (22-30) mmol/L BUN 21 H (7-17) mg/dL Creatinine 0.79 (0.52-1.04) mg/dL Glucose 269 H (74-99) mg/dL Calcium 9.3 (8.4-10.2) mg/dL AST 37 H (14-36) U/L ALT 15 (4-34) U/L Alkaline Phosphatase 120 (38-126) U/L Total Protein 8.6 H (6.3-8.2) g/dL Albumin 4.5 (3.5-5.0) g/dL Calcium panel 10/11/21 Range/Units 18:11 Calcium 9.3 (8.4-10.2) mg/dL Albumin 4.5 (3.5-5.0) g/dL Pituitary panel 10/11/21 Range/Units 18:11 Sodium 136 L (137-145) mmol/L Potassium 4.6 (3.5-5.1) mmol/L Chloride 98 (98-107) mmol/L Carbon Dioxide 27 (22-30) mmol/L BUN 21 H (7-17) mg/dL Creatinine 0.79 (0.52-1.04) mg/dL Glucose 269 H (74-99) mg/dL Calcium 9.3 (8.4-10.2) mg/dL Adrenal panel 10/11/21 Range/Units 18:11 Sodium 136 L (137-145) mmol/L Potassium 4.6 (3.5-5.1) mmol/L Chloride 98 (98-107) mmol/L Carbon Dioxide 27 (22-30) mmol/L BUN 21 H (7-17) mg/dL Creatinine 0.79 (0.52-1.04) mg/dL Glucose 269 H (74-99) mg/dL Calcium 9.3 (8.4-10.2) mg/dL Total Bilirubin 1.4 H (0.2-1.3) mg/dL AST 37 H (14-36) U/L ALT 15 (4-34) U/L Alkaline Phosphatase 120 (38-126) U/L Total Protein 8.6 H (6.3-8.2) g/dL Albumin 4.5 (3.5-5.0) g/dL Assessment and Plan Assessment: 1. Chronic right lower extremity wound 2. Diabetes 3. Morbid obesity 4. Right lower extremity cellulitis Plan: continue local wound care- recommend Daikens to the wound bed daily. No surgical intervention at this time. May need further debridement and skin substitute once infection controlled. Thank you for the consultation.
[2021-10-12] MEDS: CEFEPIME 2 GM in SODIUM CHLORIDE 0.9% 100 ML IVPB SCH ×2 (11:05→21:38)
[2021-10-12] MEDS ORDERED: IBUPROFEN 400 MG TAB PO PRN (11:07)
[2021-10-12] MEDS ORDERED: IBUPROFEN 400 MG TAB PO ONE (11:08)
[2021-10-12 11:33] LABS: Glucose,Whole Blood 165 mg/dL (75-99)
[2021-10-12] MEDS: diphenhydrAMINE 25 MG CAP PO PRN (12:03)
[2021-10-12 12:22] LABS: African American GFR (CKD) 92.2 (60.0-200.0); Anion Gap 22.3 mmol/L (10.00-18.00); Calcium 8.7 mg/dL (8.7-10.3); Carbon Dioxide 16.7 mmol/L (20.0-27.5); Non-African American GFR(CKD) 79.6 (60.0-200.0)
--- NOTE | 2021-10-12 13:27 | P.HPIM ---
History of Present Illness This is a pleasant 61 is old female with past medical history of Asthma, Diabetes Mellitus, Fibromyalgia, GERD, Hypertension, hypothyroidism, diabetic nephropathy Patient was in this hospital last June 2021 for venous insufficiency ulceration with surrounding MRSA cellulitis of the right lower extremity. At that time she's been evaluated by vascular surgery team and infectious disease team. She underwent debridement of the right lower extremity and wound culture came back positive for MRSA and she's been treated with IV vancomycin, and she was discharged with 2 weeks of IV vancomycin with PICC line placement. However patient states that over the last 3-4 days she got infection at the surgery site and that's why she came to the hospital. Her right leg is in dressing and it is hurting so she refused examination. Patient states that she has sinus condition and she uses Benadryl 50 mg daily when necessary also she uses Excedrin and/or Motrin for her pain control, and she try to avoid other medication because she is ALLERGIC to to many. She is aware of the risks of NSAIDs including but not limited to kidney side effects or GI ulceration She denies smoking, illicit drugs. She drinks occasionally Vitas looks stable and patient is afebrile. Labs show an unremarkable CBC, BMP and liver enzymes. Glucose is elevated at 269 and 226. Coronavirus nondetected. Right tibia and fibula x-ray showed no evidence of osteomyelitis, no evidence for fracture. Skin wound Patient already started on IV vancomycin and normal saline Infectious disease and vascular surgery team were already consulted Review of Systems Review of systems CONSTITUTIONAL: No fever, no malaise, no fatigue. HEENT: No recent visual problems or hearing problems. Denied any sore throat. CARDIOVASCULAR: No orthopnea, PND, no palpitations, no syncope. PULMONARY: No shortness of breath, no cough, no hemoptysis. GASTROINTESTINAL: No diarrhea, no nausea, no vomiting, no abdominal pain. No rmoactive bowel sounds. NEUROLOGICAL: No headaches, no weakness, no numbness. HEMATOLOGICAL: Denies any bleeding or petechiae. GENITOURINARY: Denies any burning micturition, frequency, or urgency. MUSCULOSKELETAL/RHEUMATOLOGICAL: Denies any joint pain, swelling, or any muscle pain. ENDOCRINE: Denies any polyuria or polydipsia. Past Medical History Past Medical History: Asthma, Diabetes Mellitus, Fibromyalgia, GERD/Reflux, Hypertension, Thyroid Disorder History of Any Multi-Drug Resistant Organisms: MRSA Date of last positivie culture/infection: 07/11/21 MDRO Source:: Right Leg Past Surgical History: Appendectomy Additional Past Surgical History / Comment(s): bowel surgery, D&C, colostomy with reversile Past Anesthesia/Blood Transfusion Reactions: Previous Problems w/ Anesthesia Past Psychological History: Anxiety Smoking Status: Current some day smoker, Never smoker Past Alcohol Use History: None Reported Past Drug Use History: None Reported Medications and Allergies Home Medications Medication Instructions Recorded Confirmed Type Albuterol Nebulized [Ventolin 3 ml INHALATION RT-Q4H PRN 06/10/14 10/11/21 History Nebulized] Tiotropium 18 Mcg/Puff [Spiriva] 1 puff INHALATION RT-DAILY 06/10/14 10/11/21 History hydroCHLOROthiazide [Hydrodiuril] 25 mg PO DAILY 06/10/14 10/11/21 History Albuterol Inhaler [Ventolin Hfa 2 puff INHALATION RT-QID PRN 07/09/21 10/11/21 History Inhaler] Insulin Aspart [NovoLOG Flexpen] 20 units SQ AC-TID 07/09/21 10/11/21 History Insulin Detemir [Levemir Flextouch 70 units SQ HS 07/09/21 10/11/21 History Pen] Levothyroxine Sodium [Synthroid] 137 mcg PO DAILY 07/09/21 10/11/21 History diphenhydrAMINE [Benadryl] 25 mg PO Q4H PRN 07/09/21 10/11/21 History Metoprolol Tartrate [Lopressor] 25 mg PO BID 30 Days #60 tablet 07/18/21 10/11/21 Rx ALPRAZolam [Xanax] 0.25 mg PO BID PRN 10/11/21 10/11/21 History Ascorbic Acid [Vitamin C] 1,000 mg PO DAILY 10/11/21 10/11/21 History Y[facility]i-Ioar-Veka [id number] 2 tab PO Q4HR PRN 10/11/21 10/11/21 History [Excedrin] Collagenase [Santyl Ointment] 1 applic TOPICAL DAILY 10/11/21 10/11/21 History Gabapentin [Neurontin] 300 mg PO TID PRN 10/11/21 10/11/21 History HYDROcodone/APAP 5-325MG [[place] 1 tab PO TID PRN 10/11/21 10/11/21 History 5-325] Ibuprofen [Motrin Ib] 800 mg PO Q8H PRN 10/11/21 10/11/21 History Simethicone [Gas-X] 125 mg PO ACHS PRN 10/11/21 10/11/21 History hydrALAZINE HCL [Apresoline] 50 mg PO TID 10/11/21 10/11/21 History Allergies Allergy/AdvReac Type Severity Reaction Status Date / Time amlodipine besylate Allergy Rash/Hives Verified 10/11/21 18:50 [From Norvasc] azithromycin [From Zithromax] Allergy Unknown Verified 10/11/21 18:50 clindamycin Allergy Unknown Verified 10/11/21 18:50 codeine Allergy Nausea & Verified 10/11/21 18:50 Vomiting doxycycline Allergy Rash/Hives Verified 10/11/21 18:50 hydrochlorothiazide Allergy Rash/Hives Verified 10/11/21 18:50 [From Hyzaar] levofloxacin [From Levaquin] Allergy Unknown Verified 10/11/21 18:50 lisinopril Allergy Unknown Verified 10/11/21 18:50 losartan potassium Allergy Unknown Verified 10/11/21 18:50 [From Hyzaar] Penicillins Allergy Rash/Hives Verified 10/11/21 18:50 Sulfa (Sulfonamide Allergy Unknown Verified 10/11/21 18:50 Antibiotics) Physical Exam Vitals: Vital Signs Temp Pulse Pulse Resp BP BP Pulse Ox 10/12/21 08:06 97.7 F 73 22 166/89 95 10/12/21 01:16 97.5 F L 74 18 195/48 93 L 10/11/21 23:40 75 10/11/21 23:34 71 10/11/21 21:20 97.7 F 73 17 171/90 96 10/11/21 20:09 73 18 182/100 94 L 10/11/21 18:26 68 20 185/99 95 10/11/21 14:59 98.2 F 75 18 185/95 96 Intake and Output 10/11/21 10/12/21 10/12/21 22:59 06:59 14:59 Output Total 600 Balance -600 Output: Urine 600 Other: Voiding Method Toilet # Bowel Movements 0 Weight 99.79 kg -GENERAL: The patient is alert and oriented x3, not in any acute distress. Obese HEENT: Pupils are round and equally reacting to light. EOMI. No scleral icterus. No conjunctival pallor. Normocephalic, atraumatic. No pharyngeal erythema. No thyromegaly. CARDIOVASCULAR: S1 and S2 present. No murmurs, rubs, or gallops. PULMONARY: Chest is clear to auscultation, no wheezing or crackles. ABDOMEN: Soft, nontender, nondistended, normoactive bowel sounds. No palpable organomegaly. MUSCULOSKELETAL: No joint swelling or deformity. EXTREMITIES: No cyanosis, clubbing, or pedal edema. Her right leg is in dressing and it is hurting so she refused examination. NEUROLOGICAL: Gross neurological examination did not reveal any focal deficits. SKIN: No rashes. no petechiae. Results CBC & Chem 7: 10/11/21 18:11 10/12/21 07:48 Labs: Abnormal Lab Results - Last 24 Hours (Table) 10/11/21 10/11/21 10/11/21 Range/Units 18:11 18:11 21:02 Hct 48.5 H (34.0-46.0) % Sodium 136 L (137-145) mmol/L Potassium (3.5-5.5) mmol/L Carbon Dioxide (20.0-27.5) mmol/L Anion Gap (10.00-18.00) mmol/L BUN 21 H (7-17) mg/dL Glucose 269 H (74-99) mg/dL POC Glucose (mg/dL) 226 H (75-99) mg/dL Total Bilirubin 1.4 H (0.2-1.3) mg/dL AST 37 H (14-36) U/L Total Protein 8.6 H (6.3-8.2) g/dL 10/12/21 10/12/21 10/12/21 Range/Units 07:01 07:48 11:32 Hct (34.0-46.0) % Sodium (137-145) mmol/L Potassium 3.0 L (3.5-5.5) mmol/L Carbon Dioxide 16.7 L (20.0-27.5) mmol/L Anion Gap 22.30 H (10.00-18.00) mmol/L BUN (7-17) mg/dL Glucose 163 H (74-99) mg/dL POC Glucose (mg/dL) 180 H 165 H (75-99) mg/dL Total Bilirubin (0.2-1.3) mg/dL AST (14-36) U/L Total Protein (6.3-8.2) g/dL Microbiology - Last 24 Hours (Table) 10/11/21 18:11 Gram Stain - Preliminary Leg - Right Wound Culture - Preliminary Thrombosis Risk Factor Assmnt - Choose All That Apply Any of the Below Risk Factors Present?: Yes Each Factor Represents 1 point: Age 41-60 years, Obesity (BMI >25) Thrombosis Risk Factor Assessment Total Risk Factor Score: 2 Thrombosis Risk Factor Assessment Level: Low Risk Assessment and Plan Assessment: Diabetic wound of the right lower extremity, with history of MRSA cellulitis Diabetes mellitus with hyperglycemia Diabetic nephropathy Hypertension History of asthma, History of GERD History of hypothyroidism History of fibromyalgia Obesity with BMI of 37.8 Plan: This is a pleasant 61 years old female who presents with diabetic right lower extremity wound. Continue with antibiotics as per infectious disease consult on follow-up wound culture results. Patient currently on IV vancomycin Continue with hydration. Vascular surgery consult and infectious disease consult Labs and medication were reviewed.. Continue same treatment. Continue with symptomatic treatment. Resume home medication. Monitor lytes and vitals. DVT and GI prophylaxis. Further recommendations depends on the clinical course of the patient DVT prophylaxis: Subcutaneous heparin GI Prophylaxis: Pepcid PT/OT: Pending Prognosis is guarded
[2021-10-12 13:41] LABS: Basophils # (A) 0.07 X 10*3/uL (0.00-0.10); Basophils % (A) 0.8 %; Eosinophils # (A) 0.26 X 10*3/uL (0.04-0.35); Eosinophils % (A) 2.8 %; HCT 46.5 % (37.2-46.3); Lymphocytes # (A) 1.22 X 10*3/uL (0.90-5.00); Lymphocytes % (A) 13.3 %; MCH 28.5 pg (27.0-32.0); MCHC 32.3 g/dL (32.0-37.0); MCV 88.2 fL (80.0-97.0); Mean Platelet Volume 11.1 fL (9.5-12.2); Monocytes # (A) 0.45 X 10*3/uL (0.20-1.00); Monocytes % (A) 4.9 %; Neutrophils # (A) 7.12 X 10*3/uL (1.80-7.70); Neutrophils % (A) 77.9 %; Platelet Count 272 X 10*3/uL (140-440); RBC 5.27 X 10*6/uL (4.10-5.20); WBC 9.15 X 10*3/uL (4.50-10.00)
[2021-10-12] MEDS: HYDROcodone/APAP 5-325MG 1 EACH TAB PO PRN ×2 (15:38→21:37)
[2021-10-12] MEDS: COLLAGENASE 250 UNIT/GM OINTMENT 30 GM TUBE TOPICAL SCH (15:52)
[2021-10-12 16:40] LABS: Glucose,Whole Blood 109 mg/dL (75-99)
[2021-10-12] MEDS: ALBUTEROL NEBULIZED 2.5 MG/3 ML INHALATION PRN (20:09)
[2021-10-12 20:31] LABS: Glucose,Whole Blood 195 mg/dL (75-99)
[2021-10-12] MEDS: GABAPENTIN 300 MG CAP PO PRN (21:47)
[2021-10-12] MEDS: ALPRAZolam 0.25 MG TAB PO PRN (23:37)
--- NOTE | 2021-10-13 00:02 | P.CONS ---
History of Present Illness - Reason for Consult Consult date: 10/12/21 right leg wound and cellulitis Requesting physician: Jesus Alberto E Sheet - Chief Complaint right leg non healing wound and pain x few days - History of Present Illness History of Present Illness : Patient is a 61-year female past medical significant for fibromyalgia diabetes mellitus asthma and hypertension did have a history of right lower extremity wound that was previously debrided by Dr. Malik back in June and did have evidence of second infection with MRSA for the patient was treated with antibiotic therapy and the patient did follow at the wound care center however has missed her last appointment patient now presenting to the [facility] ER for evaluation of worsening pain to the right lower extremity wound area that has been getting worse for the last few days. Denies any history of any trauma describes the pain to be more of a sharp in nature intensity almost 8 out of 10 and no radiation worse at the time of dressing changes with surrounding swelling and redness and no foul-smelling drainage patient denies high-grade fever and no fever has been recorded in the hospital patient did have a normal white count kidney function was normal thurman PCR was negative local wound culture have been obtained as well as blood cultures are currently pending x-rays were negative for any bony changes patient was started on cefepime and vancomycin infectious disease was consulted for further management of antibiotic to be Review of system: CONSTITUTIONAL: Positive for weakness denies high-grade fever. EYES: No complaint. ENT: No complaint. RESPIRATORY: No complaint. CARDIOVASCULAR: No complaint. GENITOURINARY: No complaint. GASTROINTESTINAL: No complaint. MUSCULOSKELETAL: As per history of present illness. INTEGUMENTARY : As per history of present illness. PSYCHOLOGIC: No complaint. ENDOCRINE: No complaint. NEUROLOGIC: No complaint. Past medical history : Reviewed, documented below Past surgical history : Reviewed, documented below Social history: Reviewed, documented below Medications: Reviewed, as documented below EXAMINATION: Vital sigans= Reviewed and documented below GENERAL DESCRIPTION: Middle-aged female lying in bed, no distress. No tachypnea or accessory muscle of respiration use. HEENT: Shows Pallor , no scleral icterus. Oral mucous membrane is dry. NECK: Trachea central, no thyromegaly. LUNGS: Unlabored breathing. Clear to auscultation anteriorly. No wheeze or crackle. HEART: S1, S2, regular rate and rhythm. ABDOMEN: Soft, no tenderness , guarding or rigidity EXTREMITIES: Right lower extremity wound with slough tissue surrounding swelling redness and minimal drainage SKIN: No rash, no masses palpable. NEUROLOGICAL: The patient is awake, alert, oriented x3, mood and affect normal. LABS AND RADIOLOGY: Reviewed results see below Assessment : Patient with right lower extremity infected wound with secondary cellulitis in this patient did have a previous debridement of this wound back in June and cultures at that time were positive for MRSA questionably same pathogen versus a different in this patient did have noncompliance with outpatient wound care visit Plan: 1-local wound cultures have been obtained and those will be followed to adjust her antibiotic 2-local wound care with Santyl followed by moist dressing to be changed daily 3-vancomycin pharmacy to dose target trough of 15 while watching kidney function and vancomycin trough closely and cefepime will provide adequate antibiotic coverage while waiting for the culture to finalize We will follow on clinical condition and cultures to further adjust medication if needed Thank you for this consultation we will follow the patient along with you Past Medical History Past Medical History: Asthma, Diabetes Mellitus, Fibromyalgia, GERD/Reflux, Hypertension, Thyroid Disorder History of Any Multi-Drug Resistant Organisms: MRSA Year Discovered:: 07/11/21 MDRO Source:: Right Leg Past Surgical History: Appendectomy Additional Past Surgical History / Comment(s): bowel surgery, D&C, colostomy with reversile Past Anesthesia/Blood Transfusion Reactions: Previous Problems w/ Anesthesia Past Psychological History: Anxiety Smoking Status: Current some day smoker, Never smoker Past Alcohol Use History: None Reported Past Drug Use History: None Reported Medications and Allergies Home Medications Medication Instructions Recorded Confirmed Type Albuterol Nebulized [Ventolin 3 ml INHALATION RT-Q4H PRN 06/10/14 10/11/21 History Nebulized] Tiotropium 18 Mcg/Puff [Spiriva] 1 puff INHALATION RT-DAILY 06/10/14 10/11/21 History hydroCHLOROthiazide [Hydrodiuril] 25 mg PO DAILY 06/10/14 10/11/21 History Albuterol Inhaler [Ventolin Hfa 2 puff INHALATION RT-QID PRN 07/09/21 10/11/21 History Inhaler] Insulin Aspart [NovoLOG Flexpen] 20 units SQ AC-TID 07/09/21 10/11/21 History Insulin Detemir [Levemir Flextouch 70 units SQ HS 07/09/21 10/11/21 History Pen] Levothyroxine Sodium [Synthroid] 137 mcg PO DAILY 07/09/21 10/11/21 History diphenhydrAMINE [Benadryl] 25 mg PO Q4H PRN 07/09/21 10/11/21 History Metoprolol Tartrate [Lopressor] 25 mg PO BID 30 Days #60 tablet 07/18/21 10/11/21 Rx ALPRAZolam [Xanax] 0.25 mg PO BID PRN 10/11/21 10/11/21 History Ascorbic Acid [Vitamin C] 1,000 mg PO DAILY 10/11/21 10/11/21 History Qrmdnyn-Macv-Maig [id number] 2 tab PO Q4HR PRN 10/11/21 10/11/21 History [Excedrin] Collagenase [Santyl Ointment] 1 applic TOPICAL DAILY 10/11/21 10/11/21 History Gabapentin [Neurontin] 300 mg PO TID PRN 10/11/21 10/11/21 History HYDROcodone/APAP 5-325MG [[place] 1 tab PO TID PRN 10/11/21 10/11/21 History 5-325] Ibuprofen [Motrin Ib] 800 mg PO Q8H PRN 10/11/21 10/11/21 History Simethicone [Gas-X] 125 mg PO ACHS PRN 10/11/21 10/11/21 History hydrALAZINE HCL [Apresoline] 50 mg PO TID 10/11/21 10/11/21 History Allergies Allergy/AdvReac Type Severity Reaction Status Date / Time amlodipine besylate Allergy Rash/Hives Verified 10/11/21 18:50 [From Norvasc] azithromycin [From Zithromax] Allergy Unknown Verified 10/11/21 18:50 clindamycin Allergy Unknown Verified 10/11/21 18:50 codeine Allergy Nausea & Verified 10/11/21 18:50 Vomiting doxycycline Allergy Rash/Hives Verified 10/11/21 18:50 hydrochlorothiazide Allergy Rash/Hives Verified 10/11/21 18:50 [From Hyzaar] levofloxacin [From Levaquin] Allergy Unknown Verified 10/11/21 18:50 lisinopril Allergy Unknown Verified 10/11/21 18:50 losartan potassium Allergy Unknown Verified 10/11/21 18:50 [From [facility]] Penicillins Allergy Rash/Hives Verified 10/11/21 18:50 Sulfa (Sulfonamide Allergy Unknown Verified 10/11/21 18:50 Antibiotics) Physical Exam Vitals: Vital Signs Temp Pulse Pulse Resp BP BP Pulse Ox 10/12/21 14:00 97.4 F L 74 21 170/98 92 L 10/12/21 08:06 97.7 F 73 22 166/89 95 10/12/21 01:16 97.5 F L 74 18 195/48 93 L 10/11/21 23:40 75 10/11/21 23:34 71 10/11/21 21:20 97.7 F 73 17 171/90 96 10/11/21 20:09 73 18 182/100 94 L 10/11/21 18:26 68 20 185/99 95 10/11/21 14:59 98.2 F 75 18 185/95 96 Intake and Output 10/11/21 10/12/21 10/12/21 22:59 06:59 14:59 Output Total 600 Balance -600 Output: Urine 600 Other: Voiding Method Toilet # Bowel Movements 0 Weight 99.79 kg Results CBC & Chem 7: 10/12/21 07:48 10/12/21 07:48 Labs: Abnormal Lab Results - Last 24 Hours (Table) 10/11/21 10/11/21 10/11/21 Range/Units 18:11 18:11 21:02 RBC (4.10-5.20) X 10*6/uL Hct 48.5 H (34.0-46.0) % Sodium 136 L (137-145) mmol/L Potassium (3.5-5.5) mmol/L Carbon Dioxide (20.0-27.5) mmol/L Anion Gap (10.00-18.00) mmol/L BUN 21 H (7-17) mg/dL Glucose 269 H (74-99) mg/dL POC Glucose (mg/dL) 226 H (75-99) mg/dL Total Bilirubin 1.4 H (0.2-1.3) mg/dL AST 37 H (14-36) U/L Total Protein 8.6 H (6.3-8.2) g/dL 10/12/21 10/12/21 10/12/21 Range/Units 07:01 07:48 07:48 RBC 5.27 H (4.10-5.20) X 10*6/uL Hct 46.5 H (34.0-46.0) % Sodium (137-145) mmol/L Potassium 3.0 L (3.5-5.5) mmol/L Carbon Dioxide 16.7 L (20.0-27.5) mmol/L Anion Gap 22.30 H (10.00-18.00) mmol/L BUN (7-17) mg/dL Glucose 163 H (74-99) mg/dL POC Glucose (mg/dL) 180 H (75-99) mg/dL Total Bilirubin (0.2-1.3) mg/dL AST (14-36) U/L Total Protein (6.3-8.2) g/dL 10/12/21 Range/Units 11:32 RBC (4.10-5.20) X 10*6/uL Hct (34.0-46.0) % Sodium (137-145) mmol/L Potassium (3.5-5.5) mmol/L Carbon Dioxide (20.0-27.5) mmol/L Anion Gap (10.00-18.00) mmol/L BUN (7-17) mg/dL Glucose (74-99) mg/dL POC Glucose (mg/dL) 165 H (75-99) mg/dL Total Bilirubin (0.2-1.3) mg/dL AST (14-36) U/L Total Protein (6.3-8.2) g/dL Microbiology - Last 24 Hours (Table) 10/11/21 18:11 Gram Stain - Preliminary Leg - Right Wound Culture - Preliminary
[2021-10-13] MEDS: ACETAMINOPHEN TAB 325 MG TAB PO PRN (01:11)
[2021-10-13] MEDS: SODIUM CHLORIDE 0.9% 1,000 ML IV SCH ×2 (01:52→14:52)
[2021-10-13] MEDS: HYDROcodone/APAP 5-325MG 1 EACH TAB PO PRN ×4 (02:56→23:51)
[2021-10-13] MEDS: metroNIDAZOLE-NS PMX 500 MG in SALINE 1 100ML.BAG IVPB SCH ×3 (02:57→11:06)
[2021-10-13] MEDS: GABAPENTIN 300 MG CAP PO PRN ×2 (05:53→21:21)
[2021-10-13] MEDS: LEVOTHYROXINE 137 MCG TAB PO SCH (05:53)
[2021-10-13] MEDS: ASPIRIN-ACET-CAFF 250-250-65MG 1 EACH TAB PO PRN (05:53)
[2021-10-13 07:13] LABS: Glucose,Whole Blood 122 mg/dL (75-99)
[2021-10-13] MEDS: INSULIN ASPART (NovoLOG) 100 UNIT/ML VIAL SQ SCH ×4 (07:17→21:20)
[2021-10-13] MEDS: HEPARIN SODIUM,PORCINE/PF 5,000 UNIT/0.5 ML SYRINGE SQ SCH ×3 (08:17→23:51)
[2021-10-13] MEDS: ASCORBIC ACID 500 MG TAB PO SCH (08:17)
[2021-10-13] MEDS: hydroCHLOROthiazide 25 MG TAB PO SCH (08:17)
[2021-10-13] MEDS: VANCOMYCIN 1,500 MG in SODIUM CHLORIDE 0.9% 250 ML IVPB SCH ×2 (08:18→19:39)
[2021-10-13] MEDS: METOPROLOL TARTRATE 50 MG TAB PO SCH ×2 (08:18→21:20)
[2021-10-13] MEDS: hydrALAZINE HCL 25 MG TAB PO SCH ×3 (08:45→21:21)
[2021-10-13 10:27] LABS: Basophils % (A) 1 %; Eosinophils # (A) 0.3 k/uL (0-0.7); Eosinophils % (A) 3 %; HCT 42.3 % (34.0-46.0); Lymphocytes # (A) 1.1 k/uL (1.0-4.8); Lymphocytes % (A) 14 %; MCH 29.7 pg (25.0-35.0); MCV 89.9 fL (80.0-100.0); Mean Platelet Volume 8.4; Monocytes # (A) 0.3 k/uL (0-1.0); Monocytes % (A) 4 %; Neutrophils % (A) 77 %; Platelet Count 227 k/uL (150-450); RBC 4.71 m/uL (3.80-5.40); RDW 14.2 % (11.5-15.5); WBC 7.9 k/uL (3.8-10.6)
[2021-10-13 10:35] LABS: African American GFR (CKD) >90 (>60 ml/min/1.73 sqM); Anion Gap 5 mmol/L; Blood Urea Nitrogen 14 mg/dL (7-17); Calcium 8.4 mg/dL (8.4-10.2); Carbon Dioxide 27 mmol/L (22-30); Chloride 102 mmol/L (98-107); Glucose 165 mg/dL (74-99); Non-African American GFR(CKD) 86 (>60 ml/min/1.73 sqM); Potassium 2.9 mmol/L (3.5-5.1); Sodium 134 mmol/L (137-145)
[2021-10-13] MEDS: SODIUM HYPOCHLORITE 0.25% 480 ML BOT MISCELLANE SCH (10:39)
[2021-10-13] MEDS: CEFEPIME 2 GM in SODIUM CHLORIDE 0.9% 100 ML IVPB SCH ×3 (10:46→21:29)
[2021-10-13] MEDS: COLLAGENASE 250 UNIT/GM OINTMENT 30 GM TUBE TOPICAL SCH (11:10)
[2021-10-13 11:28] LABS: Glucose,Whole Blood 153 mg/dL (75-99)
[2021-10-13 16:48] LABS: Glucose,Whole Blood 212 mg/dL (75-99)
[2021-10-13] MEDS ORDERED: VANCOMYCIN TROUGH DUE 1 EACH MISC MISCELLANE ONE (18:00)
[2021-10-13] MEDS: metroNIDAZOLE 500 MG TAB PO SCH ×2 (18:40→23:50)
[2021-10-13] MEDS ORDERED: Potassium Replacement Protocol 1 EACH MISC MISCELLANE PRN (20:02)
[2021-10-13] MEDS ORDERED: Magnesium Replacement Protocol 1 EACH MISC MISCELLANE PRN (20:02)
[2021-10-13] MEDS ORDERED: POTASSIUM CHLORIDE ER 20 MEQ TAB.ER PO STA (20:02)
--- NOTE | 2021-10-13 20:02 | P.PN ---
Subjective This is a pleasant 61 is old female with past medical history of Asthma, Diabetes Mellitus, Fibromyalgia, GERD, Hypertension, hypothyroidism, diabetic nephropathy Patient was in this hospital last June 2021 for venous insufficiency ulceration with surrounding MRSA cellulitis of the right lower extremity. At that time she's been evaluated by vascular surgery team and infectious disease team. She underwent debridement of the right lower extremity and wound culture came back positive for MRSA and she's been treated with IV vancomycin, and she was discharged with 2 weeks of IV vancomycin with PICC line placement. However patient states that over the last 3-4 days she got infection at the surgery site and that's why she came to the hospital. Her right leg is in dressing and it is hurting so she refused examination. Patient states that she has sinus condition and she uses Benadryl 50 mg daily when necessary also she uses Excedrin and/or Motrin for her pain control, and she try to avoid other medication because she is ALLERGIC to to many. She is aware of the risks of NSAIDs including but not limited to kidney side effects or GI ulceration She denies smoking, illicit drugs. She drinks occasionally Vitas looks stable and patient is afebrile. Labs show an unremarkable CBC, BMP and liver enzymes. Glucose is elevated at 269 and 226. Coronavirus nondetected. Right tibia and fibula x-ray showed no evidence of osteomyelitis, no evidence for fracture. Skin wound Patient already started on IV vancomycin and normal saline Infectious disease and vascular surgery team were already consulted 10/13/2021 Patient with right lower extremity infection and chronic wound that underwent debridement last June, she felt to follow-up with the wound clinic Center. Now presents with similar infection of her right foot wound. Wound culture is growing Proteus and MRSA and consultation is covered with cefepime, Flagyl and IV vancomycin, also she is on normal saline at 100 mL per hour She has potassium of 2.9 which would be replaced per protocol. Blood pressure is better controlled at 134/76 after increasing her metoprolol 25-50 mg and hydralazine 50 mg to 75 mg 3 times a day Vascular surgery team recommended wound care only, no currently any surgical intervention Objective - Vital Signs Vital signs: Vital Signs Temp 98.4 F 10/13/21 08:00 Pulse 72 10/13/21 08:00 Resp 19 10/13/21 08:00 BP 178/104 10/13/21 08:00 Pulse Ox 93 L 10/13/21 08:00 Intake & Output 10/12/21 10/13/21 10/13/21 18:59 06:59 18:59 Other: Voiding Method Toilet # Voids 3 3 - Exam -GENERAL: The patient is alert and oriented x3, not in any acute distress. Obese HEENT: Pupils are round and equally reacting to light. EOMI. No scleral icterus. No conjunctival pallor. Normocephalic, atraumatic. No pharyngeal erythema. No thyromegaly. CARDIOVASCULAR: S1 and S2 present. No murmurs, rubs, or gallops. PULMONARY: Chest is clear to auscultation, no wheezing or crackles. ABDOMEN: Soft, nontender, nondistended, normoactive bowel sounds. No palpable organomegaly. MUSCULOSKELETAL: No joint swelling or deformity. -EXTREMITIES: No cyanosis, clubbing, or pedal edema. Her right leg is in dressing and it is hurting so she refused examination. NEUROLOGICAL: Gross neurological examination did not reveal any focal deficits. SKIN: No rashes. no petechiae. - Labs CBC & Chem 7: 10/13/21 09:47 10/13/21 09:47 Labs: Abnormal Lab Results - Last 24 Hours (Table) 10/12/21 10/12/21 10/12/21 Range/Units 07:48 07:48 11:32 RBC 5.27 H (4.10-5.20) X 10*6/uL Hct 46.5 H (37.2-46.3) % Sodium (137-145) mmol/L Potassium 3.0 L (3.5-5.5) mmol/L Carbon Dioxide 16.7 L (20.0-27.5) mmol/L Anion Gap 22.30 H (10.00-18.00) mmol/L Glucose 163 H (70-110) mg/dL POC Glucose (mg/dL) 165 H (75-99) mg/dL 10/12/21 10/12/21 10/13/21 Range/Units 16:38 20:30 07:11 RBC (4.10-5.20) X 10*6/uL Hct (37.2-46.3) % Sodium (137-145) mmol/L Potassium (3.5-5.5) mmol/L Carbon Dioxide (20.0-27.5) mmol/L Anion Gap (10.00-18.00) mmol/L Glucose (70-110) mg/dL POC Glucose (mg/dL) 109 H 195 H 122 H (75-99) mg/dL 10/13/21 Range/Units 09:47 RBC (4.10-5.20) X 10*6/uL Hct (37.2-46.3) % Sodium 134 L (137-145) mmol/L Potassium 2.9 L (3.5-5.5) mmol/L Carbon Dioxide (20.0-27.5) mmol/L Anion Gap (10.00-18.00) mmol/L Glucose 165 H (70-110) mg/dL POC Glucose (mg/dL) (75-99) mg/dL Microbiology - Last 24 Hours (Table) 10/11/21 18:11 Blood Culture - Preliminary Blood No Growth after 24 hours 10/11/21 18:11 Blood Culture - Preliminary Blood No Growth after 24 hours 10/11/21 18:11 Gram Stain - Preliminary Leg - Right Wound Culture - Preliminary Assessment and Plan Assessment: Diabetic wound of the right lower extremity, with secondary to Proteus and MRSA Hypertension, uncontrolled on admission Diabetes mellitus with hyperglycemia Diabetic nephropathy History of asthma, History of GERD History of hypothyroidism History of fibromyalgia Obesity with BMI of 37.8 Plan: This is a pleasant 61 years old female who presents with diabetic right lower extremity wound. Continue with antibiotics as per infectious disease consult on follow-up wound culture results. Patient currently on IV vancomycin, cefepime and Flagyl Continue with hydration. Vascular surgery consult and infectious disease consult Labs and medication were reviewed.. Continue same treatment. Continue with sym ptomatic treatment. Resume home medication. Monitor lytes and vitals. DVT and GI prophylaxis. Further recommendations depends on the clinical course of the patient DVT prophylaxis: Subcutaneous heparin GI Prophylaxis: Pepcid PT/OT: Pending Prognosis is guarded
--- NOTE | 2021-10-13 20:37 | PN ---
PROGRESS NOTE DATE OF SERVICE: 10/13/2021 REASON FOR FOLLOWUP: Lower extremity wound and cellulitis. INTERVAL HISTORY: Patient is afebrile. The patient is currently breathing comfortably. The patient denies having any chest pain. Pain to the leg area has slightly decreased intensity. No abdominal pain or any diarrhea. PHYSICAL EXAMINATION: Her blood pressure is 134/76, pulse is 74, temperature 98.2. She is 95% on room air. General description is a middle-aged female up in the room in no distress. Respiratory system: Unlabored breathing, clear to auscultation anteriorly. Heart S1, S2. Regular rate and rhythm. Abdomen soft, no tenderness. Right leg is currently dressed. No obvious drainage on the dressing. LABS: Hemoglobin is 14.1, white count 7.9, creatinine 0.75. Wound culture with MRSA. DIAGNOSTIC IMPRESSION AND PLAN: The patient with right lower extremity wound with secondary cellulitis. Culture positive for MRSA. Patient is covered with cefepime and IV vancomycin. Hopefully we will be able to finish therapy with oral antibiotics on discharge. Local care to continue with [facility]y. Continue supportive care. MMODL / IJN: [id number] / MONTY
[2021-10-13 21:04] LABS: Glucose,Whole Blood 179 mg/dL (75-99)
[2021-10-13] MEDS: diphenhydrAMINE 25 MG CAP PO PRN (21:22)
[2021-10-14] MEDS: SODIUM CHLORIDE 0.9% 1,000 ML IV SCH ×2 (02:26→14:45)
[2021-10-14] MEDS: GABAPENTIN 300 MG CAP PO PRN ×2 (05:33→20:48)
[2021-10-14] MEDS: LEVOTHYROXINE 137 MCG TAB PO SCH (05:33)
[2021-10-14 07:26] LABS: Glucose,Whole Blood 129 mg/dL (75-99)
[2021-10-14] MEDS: INSULIN ASPART (NovoLOG) 100 UNIT/ML VIAL SQ SCH ×4 (08:38→21:04)
[2021-10-14] MEDS: METOPROLOL TARTRATE 50 MG TAB PO SCH ×2 (08:46→20:48)
[2021-10-14] MEDS: HYDROcodone/APAP 7.5-325MG 1 EACH TAB PO PRN ×3 (08:46→22:10)
[2021-10-14] MEDS: hydrALAZINE HCL 25 MG TAB PO SCH (08:46)
[2021-10-14] MEDS: COLLAGENASE 250 UNIT/GM OINTMENT 30 GM TUBE TOPICAL SCH (08:47)
[2021-10-14] MEDS: metroNIDAZOLE 500 MG TAB PO SCH ×2 (08:47→17:17)
[2021-10-14] MEDS: hydroCHLOROthiazide 25 MG TAB PO SCH (08:47)
[2021-10-14] MEDS: ASCORBIC ACID 500 MG TAB PO SCH (08:47)
[2021-10-14] MEDS: HEPARIN SODIUM,PORCINE/PF 5,000 UNIT/0.5 ML SYRINGE SQ SCH ×2 (08:47→15:10)
[2021-10-14] MEDS: VANCOMYCIN 1,500 MG in SODIUM CHLORIDE 0.9% 250 ML IVPB SCH ×2 (08:47→21:04)
[2021-10-14] MEDS: SODIUM HYPOCHLORITE 0.25% 480 ML BOT MISCELLANE SCH (08:48)
[2021-10-14 09:13] LABS: African American GFR (CKD) >90 (>60 ml/min/1.73 sqM); Anion Gap 3 mmol/L; Blood Urea Nitrogen 12 mg/dL (7-17); Calcium 8.3 mg/dL (8.4-10.2); Carbon Dioxide 28 mmol/L (22-30); Chloride 105 mmol/L (98-107); Glucose 174 mg/dL (74-99); Non-African American GFR(CKD) >90 (>60 ml/min/1.73 sqM); Sodium 136 mmol/L (137-145)
[2021-10-14] MEDS ORDERED: Potassium Replacement Protocol 1 EACH MISC MISCELLANE PRN (11:52)
[2021-10-14] MEDS: CEFEPIME 2 GM in SODIUM CHLORIDE 0.9% 100 ML IVPB SCH ×2 (12:35→21:03)
[2021-10-14] MEDS: POTASSIUM CHLORIDE ER 20 MEQ TAB.ER PO SCH (12:35)
[2021-10-14 12:40] LABS: Glucose,Whole Blood 218 mg/dL (75-99)
--- NOTE | 2021-10-14 13:17 | P.PN ---
Subjective This is a pleasant 61 is old female with past medical history of Asthma, Diabetes Mellitus, Fibromyalgia, GERD, Hypertension, hypothyroidism, diabetic nephropathy Patient was in this hospital last June 2021 for venous insufficiency ulceration with surrounding MRSA cellulitis of the right lower extremity. At that time she's been evaluated by vascular surgery team and infectious disease team. She underwent debridement of the right lower extremity and wound culture came back positive for MRSA and she's been treated with IV vancomycin, and she was discharged with 2 weeks of IV vancomycin with PICC line placement. However patient states that over the last 3-4 days she got infection at the surgery site and that's why she came to the hospital. Her right leg is in dressing and it is hurting so she refused examination. Patient states that she has sinus condition and she uses Benadryl 50 mg daily when necessary also she uses Excedrin and/or Motrin for her pain control, and she try to avoid other medication because she is ALLERGIC to to many. She is aware of the risks of NSAIDs including but not limited to kidney side effects or GI ulceration She denies smoking, illicit drugs. She drinks occasionally Vitas looks stable and patient is afebrile. Labs show an unremarkable CBC, BMP and liver enzymes. Glucose is elevated at 269 and 226. Coronavirus nondetected. Right tibia and fibula x-ray showed no evidence of osteomyelitis, no evidence for fracture. Skin wound Patient already started on IV vancomycin and normal saline Infectious disease and vascular surgery team were already consulted 10/13/2021 Patient with right lower extremity infection and chronic wound that underwent debridement last June, she felt to follow-up with the wound clinic [facility]. Now presents with similar infection of her right foot wound. Wound culture is growing Proteus and MRSA and consultation is covered with cefepime, Flagyl and IV vancomycin, also she is on normal saline at 100 mL per hour She has potassium of 2.9 which would be replaced per protocol. Blood pressure is better controlled at 134/76 after increasing her metoprolol 25-50 mg and hydralazine 50 mg to 75 mg 3 times a day Vascular surgery team recommended wound care only, no currently any surgical intervention 10/14/2021 Patient is still complaining from pain in her right foot wound, therefore we increased her [place] up to 7.5 mg. Infectious disease and surgery team are fol lowing the patient closely. Her wound is growing Proteus and MRSA and currently T is covered with cefepime and IV vancomycin and continued with gentle hydration at 75 mL/h, we are going to allow her to 50 mL per hour because of uncontrolled hypertension and add hydralazine increased dose from from 75 up to 100 mg 3 times a day. Check labs in the morning Objective - Vital Signs Vital signs: Vital Signs Temp 96.4 F L 10/14/21 08:00 Pulse 78 10/14/21 08:00 Resp 18 10/14/21 08:00 BP 180/87 10/14/21 08:00 Pulse Ox 92 L 10/14/21 08:00 Intake & Output 10/13/21 10/14/21 10/14/21 18:59 06:59 18:59 Other: # Voids 3 4 - Exam -GENERAL: The patient is alert and oriented x3, not in any acute distress. Obese HEENT: Pupils are round and equally reacting to light. EOMI. No scleral icterus. No conjunctival pallor. Normocephalic, atraumatic. No pharyngeal erythema. No thyromegaly. CARDIOVASCULAR: S1 and S2 present. No murmurs, rubs, or gallops. PULMONARY: Chest is clear to auscultation, no wheezing or crackles. ABDOMEN: Soft, nontender, nondistended, normoactive bowel sounds. No palpable organomegaly. MUSCULOSKELETAL: No joint swelling or deformity. -EXTREMITIES: No cyanosis, clubbing, or pedal edema. Her right leg is in dressing and it is hurting so she refused examination. NEUROLOGICAL: Gross neurological examination did not reveal any focal deficits. SKIN: No rashes. no petechiae. - Labs CBC & Chem 7: 10/13/21 09:47 10/14/21 08:14 Labs: Abnormal Lab Results - Last 24 Hours (Table) 10/13/21 10/13/21 10/13/21 Range/Units 11:26 16:47 21:02 Sodium (137-145) mmol/L Potassium (3.5-5.1) mmol/L Glucose (74-99) mg/dL POC Glucose (mg/dL) 153 H 212 H 179 H (75-99) mg/dL Calcium (8.4-10.2) mg/dL 10/14/21 10/14/21 Range/Units 07:25 08:14 Sodium 136 L (137-145) mmol/L Potassium 3.0 L (3.5-5.1) mmol/L Glucose 174 H (74-99) mg/dL POC Glucose (mg/dL) 129 H (75-99) mg/dL Calcium 8.3 L (8.4-10.2) mg/dL Microbiology - Last 24 Hours (Table) 10/11/21 18:11 Blood Culture - Preliminary Blood No Growth after 48 hours 10/11/21 18:11 Blood Culture - Preliminary Blood No Growth after 48 hours 10/11/21 18:11 Gram Stain - Final Leg - Right Wound Culture - Preliminary Proteus vulgaris Methicillin resist S. aureus Assessment and Plan Assessment: Diabetic wound of the right lower extremity, with secondary to Proteus and MRSA Hypertension, uncontrolled on admission Diabetes mellitus with hyperglycemia Diabetic nephropathy History of asthma, History of GERD History of hypothyroidism History of fibromyalgia Obesity with BMI of 37.8 Plan: This is a pleasant 61 years old female who presents with diabetic right lower extremity wound. Continue with antibiotics as per infectious disease consult on follow-up wound culture results. Patient currently on IV vancomycin, cefepime and Flagyl Continue with hydration. Vascular surgery consult and infectious disease consult Labs and medication were reviewed.. Continue same treatment. Continue with symptomatic treatment. Resume home medication. Monitor lytes and vitals. DVT and GI prophylaxis. Further recommendations depends on the clinical course of the patient DVT prophylaxis: Subcutaneous heparin GI Prophylaxis: Pepcid PT/OT: Pending Prognosis is guarded
--- NOTE | 2021-10-14 14:03 | P.PN ---
Progress Note - Text Progress Note Date: 10/14/21 REASON FOR FOLLOWUP: Lower extremity wound and cellulitis. INTERVAL HISTORY: Patient remains to be afebrile. The patient is currently breathing comfortably. The patient denies having any chest pain. the Pt pain to the right leg area has slightly decreased intensity. the pt deneis abdominal pain or any diarrhea. PHYSICAL EXAMINATION: Her blood pressure is 130/70, pulse is 70, temperature 98.2. She is 95% on room air. General description is a middle-aged female up in the room in no distress. Respiratory system: Unlabored breathing, clear to auscultation anteriorly. Heart S1, S2. Regular rate and rhythm. Abdomen soft, no tenderness. Right leg is currently dressed. No obvious drainage on the dressing. LABS: Hemoglobin is 14.1, white count 7.9, creatinine 0.75. Wound culture with MRSA and proteus resistant to rocephin. DIAGNOSTIC IMPRESSION AND PLAN: The patient with right lower extremity wound with secondary cellulitis. Culture positive for MRSA and proteus Patient is covered with cefepime and IV vancomycin. pt with multiple allergies, RN to confirm levaquin and bactrim allergies as possible oral choices if not true allergies. Local care to continue with Santyl. Continue supportive care.
[2021-10-14 14:51] VITALS: BMI 37.8
[2021-10-14] MEDS: hydrALAZINE HCL 50 MG TAB PO SCH ×2 (15:10→20:48)
--- NOTE | 2021-10-14 15:51 | P.PN ---
Subjective Progress Note Date: 10/14/21 She was seen and examined lying in bed. Patient states she did not contain any sleep last night. No acute changes through the night. She remains on IV cefepime and vancomycin. She's been afebrile. Objective - Vital Signs Vital signs: Vital Signs Temp 96.4 F L 10/14/21 08:00 Pulse 78 10/14/21 08:00 Resp 18 10/14/21 08:00 BP 180/87 10/14/21 08:00 Pulse Ox 92 L 10/14/21 08:00 Intake & Output 10/13/21 10/14/21 10/14/21 18:59 06:59 18:59 Weight 99.79 kg Other: # Voids 3 4 - Exam General appearance: The patient is alert, oriented, appears in no acute distre ss. HET: Head is normocephalic and atraumatic. Abdomen: Soft, nontender, nondistended.. Extremities: Right lower extremity with dressing clean dry and intact. Palpable right DP and PT pulse with good capillary refill. Neurological: No focal deficits. Strength and sensation are grossly intact. - Labs CBC & Chem 7: 10/13/21 09:47 10/14/21 08:14 Labs: Abnormal Lab Results - Last 24 Hours (Table) 10/13/21 10/13/21 10/14/21 Range/Units 16:47 21:02 07:25 Sodium (137-145) mmol/L Potassium (3.5-5.1) mmol/L Glucose (74-99) mg/dL POC Glucose (mg/dL) 212 H 179 H 129 H (75-99) mg/dL Calcium (8.4-10.2) mg/dL 10/14/21 10/14/21 Range/Units 08:14 12:34 Sodium 136 L (137-145) mmol/L Potassium 3.0 L (3.5-5.1) mmol/L Glucose 174 H (74-99) mg/dL POC Glucose (mg/dL) 218 H (75-99) mg/dL Calcium 8.3 L (8.4-10.2) mg/dL Microbiology - Last 24 Hours (Table) 10/11/21 18:11 Blood Culture - Preliminary Blood No Growth after 48 hours 10/11/21 18:11 Blood Culture - Preliminary Blood No Growth after 48 hours 10/11/21 18:11 Gram Stain - Final Leg - Right Wound Culture - Preliminary Proteus vulgaris Methicillin resist S. aureus Assessment and Plan Assessment: 1. Chronic right lower extremity wound 2. Diabetes 3. Morbid obesity 4. Right lower extremity cellulitis Plan: 1. Continue local wound care 2. Dakin solution to the wound bed daily 3. No surgical intervention at this time. Patient may need further debridement skin substitute once infection is controlled. The impression and plan of care has been dictated as directed. Dr. Malik I performed a history and examination of this patient, discussed the same with the dictator. I agree with the dictator's note ,documented as a scribe. Any additional findings or plans will be noted.
[2021-10-14 16:38] LABS: Glucose,Whole Blood 172 mg/dL (75-99)
[2021-10-14] MEDS: ALBUTEROL NEBULIZED 2.5 MG/3 ML INHALATION PRN ×2 (16:41→21:59)
[2021-10-14 18:10] LABS: Magnesium 2.1 mg/dL (1.6-2.3); Potassium 3.4 mmol/L (3.5-5.1)
[2021-10-14 21:02] LABS: Glucose,Whole Blood 178 mg/dL (75-99)
[2021-10-15] MEDS: HEPARIN SODIUM,PORCINE/PF 5,000 UNIT/0.5 ML SYRINGE SQ SCH ×4 (00:52→23:42)
[2021-10-15] MEDS: metroNIDAZOLE 500 MG TAB PO SCH ×3 (00:53→17:32)
[2021-10-15] MEDS: ACETAMINOPHEN TAB 325 MG TAB PO PRN ×2 (00:58→19:52)
[2021-10-15] MEDS: ALPRAZolam 0.25 MG TAB PO PRN ×2 (00:59→22:48)
[2021-10-15] MEDS: GABAPENTIN 300 MG CAP PO PRN ×2 (05:00→12:15)
[2021-10-15] MEDS: HYDROcodone/APAP 7.5-325MG 1 EACH TAB PO PRN ×4 (05:43→22:47)
[2021-10-15] MEDS: LEVOTHYROXINE 137 MCG TAB PO SCH (05:44)
[2021-10-15 06:59] LABS: Glucose,Whole Blood 100 mg/dL (75-99)
[2021-10-15] MEDS: INSULIN ASPART (NovoLOG) 100 UNIT/ML VIAL SQ SCH ×4 (07:11→21:02)
[2021-10-15] MEDS: ALBUTEROL NEBULIZED 2.5 MG/3 ML INHALATION PRN (08:13)
[2021-10-15] MEDS: COLLAGENASE 250 UNIT/GM OINTMENT 30 GM TUBE TOPICAL SCH (08:59)
[2021-10-15] MEDS: VANCOMYCIN 1,500 MG in SODIUM CHLORIDE 0.9% 250 ML IVPB SCH (08:59)
[2021-10-15] MEDS: hydroCHLOROthiazide 25 MG TAB PO SCH (09:00)
[2021-10-15] MEDS: METOPROLOL TARTRATE 50 MG TAB PO SCH ×2 (09:00→19:52)
[2021-10-15] MEDS: ASCORBIC ACID 500 MG TAB PO SCH (09:00)
[2021-10-15] MEDS: hydrALAZINE HCL 50 MG TAB PO SCH ×3 (09:00→21:02)
[2021-10-15] MEDS: SODIUM CHLORIDE 0.9% 1,000 ML IV SCH (09:01)
[2021-10-15] MEDS: SODIUM HYPOCHLORITE 0.25% 480 ML BOT MISCELLANE SCH (09:01)
[2021-10-15] MEDS: CEFEPIME 2 GM in SODIUM CHLORIDE 0.9% 100 ML IVPB SCH (09:02)
[2021-10-15 09:54] LABS: African American GFR (CKD) 108.4 (60.0-200.0); Anion Gap 13.3 mmol/L (10.00-18.00); BUN/Creat Ratio 16.29 Ratio (12.00-20.00); Blood Urea Nitrogen 11.4 mg/dL (9.0-27.0); Calcium 8.4 mg/dL (8.7-10.3); Carbon Dioxide 21.7 mmol/L (20.0-27.5); Non-African American GFR(CKD) 93.5 (60.0-200.0); Potassium 3.4 mmol/L (3.5-5.5)
--- NOTE | 2021-10-15 10:50 | P.CONS ---
History of Present Illness - Reason for Consult Consult date: 10/15/21 wound care - History of Present Illness This is a 61-year-old patient being seen by wound care on [facility]. for a nonhealing ulceration to the right lower extremity. Patient states the ulcerations have been there for approximately 2 months. She states that they begin to heal and then reopened. Patient has 2 ulcerations to the anterior medial aspect of the right lower extremity distal. The ulcerations measures combined approximately 4 x 8 x 0.1 cm. she underwent a surgical debridement. She is currently following Dr. Echevarria at [facility] for wound care. She is utilizing Santyl to the site. Past medical history is significant for venous insufficiency, diabetes, asthma, fibromyalgia, GERD, hypertension, hypothyroidism. Patient is an every day smoker. Review Of Systems: Constitutional: No fever, no chills, no night sweats. No weight change. No weakness, fatigue or lethargy. No daytime sleepiness. Integumentary:reports wounds, no lesions. No rash or pruritus. No unusual bruising. No change in hair or nails. Physical exam: General Appearance: Alert, cooperative, no distress, appears stated age. Skin: See HPI all other Skin color, texture, tugor normal, no rashes or lesions. Neurologic: Alert oriented x3 Assessment: 1. Chronic hypertension with venous inserted deficiency with a ulceration to the right lower extremity 2. Diabetes a skin ulcer 3. Nicotine dependence Plan: 1. Apply Santyl, saline moistened gauze, dry gauze, rolled gauze secured with paper tape. Wrap with Rm wrap for compression. Thank you for the consultation any questions please contact the wound care center DNP note has been reviewed and discussed with Dr. Sanz and the impression and plan of care has been directed as dictated. Past Medical History Past Medical History: Asthma, Diabetes Mellitus, Fibromyalgia, GERD/Reflux, Hypertension, Thyroid Disorder History of Any Multi-Drug Resistant Organisms: MRSA Year Discovered:: 10/11/21 MDRO Source:: Right Leg Past Surgical History: Appendectomy Additional Past Surgical History / Comment(s): bowel surgery, D&C, colostomy with reversile Past Anesthesia/Blood Transfusion Reactions: Previous Problems w/ Anesthesia Past Psychological History: Anxiety Smoking Status: Current some day smoker, Never smoker Past Alcohol Use History: None Reported Past Drug Use History: None Reported Medications and Allergies Home Medications Medication Instructions Recorded Confirmed Type Albuterol Nebulized [Ventolin 3 ml INHALATION RT-Q4H PRN 06/10/14 10/11/21 History Nebulized] Tiotropium 18 Mcg/Puff [Spiriva] 1 puff INHALATION RT-DAILY 06/10/14 10/11/21 History hydroCHLOROthiazide [Hydrodiuril] 25 mg PO DAILY 06/10/14 10/11/21 History Albuterol Inhaler [Ventolin Hfa 2 puff INHALATION RT-QID PRN 07/09/21 10/11/21 History Inhaler] Insulin Aspart [NovoLOG Flexpen] 20 units SQ AC-TID 07/09/21 10/11/21 History Insulin Detemir [Levemir Flextouch 70 units SQ HS 07/09/21 10/11/21 History Pen] Levothyroxine Sodium [Synthroid] 137 mcg PO DAILY 07/09/21 10/11/21 History diphenhydrAMINE [Benadryl] 25 mg PO Q4H PRN 07/09/21 10/11/21 History Metoprolol Tartrate [Lopressor] 25 mg PO BID 30 Days #60 tablet 07/18/21 10/11/21 Rx ALPRAZolam [Xanax] 0.25 mg PO BID PRN 10/11/21 10/11/21 History Ascorbic Acid [Vitamin C] 1,000 mg PO DAILY 10/11/21 10/11/21 History Ripkqny-Llau-Artx [id number] 2 tab PO Q4HR PRN 10/11/21 10/11/21 History [Excedrin] Collagenase [Santyl Ointment] 1 applic TOPICAL DAILY 10/11/21 10/11/21 History Gabapentin [Neurontin] 300 mg PO TID PRN 10/11/21 10/11/21 History HYDROcodone/APAP 5-325MG [Chandler 1 tab PO TID PRN 10/11/21 10/11/21 History 5-325] Ibuprofen [Motrin Ib] 800 mg PO Q8H PRN 10/11/21 10/11/21 History Simethicone [Gas-X] 125 mg PO ACHS PRN 10/11/21 10/11/21 History hydrALAZINE HCL [Apresoline] 50 mg PO TID 10/11/21 10/11/21 History Allergies Allergy/AdvReac Type Severity Reaction Status Date / Time amlodipine besylate Allergy Rash/Hives Verified 10/11/21 18:50 [From Norvasc] azithromycin [From Zithromax] Allergy Unknown Verified 10/11/21 18:50 clindamycin Allergy Unknown Verified 10/11/21 18:50 codeine Allergy Nausea & Verified 10/11/21 18:50 Vomiting doxycycline Allergy Rash/Hives Verified 10/11/21 18:50 grape Allergy Unknown Verified 10/13/21 12:07 hydrochlorothiazide Allergy Rash/Hives Verified 10/11/21 18:50 [From Hyzaar] levofloxacin [From Levaquin] Allergy Unknown Verified 10/11/21 18:50 lisinopril Allergy Unknown Verified 10/11/21 18:50 losartan potassium Allergy Unknown Verified 10/11/21 18:50 [From Hyzaar] Penicillins Allergy Rash/Hives Verified 10/11/21 18:50 Sulfa (Sulfonamide Allergy Unknown Verified 10/11/21 18:50 Antibiotics) Physical Exam Vitals: Vital Signs Temp Pulse Pulse Resp BP Pulse Ox 10/15/21 08:25 84 10/15/21 08:14 82 10/15/21 07:44 98.1 F 76 18 145/80 95 10/15/21 01:22 98.0 F 68 18 151/82 95 10/14/21 22:14 84 10/14/21 22:00 88 10/14/21 19:32 97.7 F 81 16 150/78 95 10/14/21 16:54 72 10/14/21 16:41 76 10/14/21 14:00 95.8 F L 74 18 170/89 94 L Intake and Output 10/14/21 10/15/21 10/15/21 22:59 06:59 14:59 Intake Total 1080 Balance 1080 Intake: Oral 1080 Other: Voiding Method Toilet # Voids 2 5 Results CBC & Chem 7: 10/13/21 09:47 10/15/21 05:01 Labs: Abnormal Lab Results - Last 24 Hours (Table) 10/14/21 10/14/21 10/14/21 Range/Units 12:34 16:37 17:38 Potassium 3.4 L (3.5-5.1) mmol/L Glucose (70-110) mg/dL POC Glucose (mg/dL) 218 H 172 H (75-99) mg/dL Calcium (8.7-10.3) mg/dL 10/14/21 10/15/21 10/15/21 Range/Units 21:00 05:01 06:56 Potassium 3.4 L (3.5-5.1) mmol/L Glucose 132 H (70-110) mg/dL POC Glucose (mg/dL) 178 H 100 H (75-99) mg/dL Calcium 8.4 L (8.7-10.3) mg/dL Microbiology - Last 24 Hours (Table) 10/11/21 18:11 Gram Stain - Final Leg - Right Wound Culture - Final Proteus vulgaris Methicillin resist S. aureus 10/11/21 18:11 Blood Culture - Preliminary Blood No Growth after 72 hours 10/11/21 18:11 Blood Culture - Preliminary Blood No Growth after 72 hours Assessment and Plan (1) Chronic venous hypertension w/ulcer and inflammation involv right side Current Visit: No Status: Acute Code(s): I87.331 - CHRONIC VENOUS HTN W ULCER AND INFLAMMATION OF R LOW EXTREM; L97.919 - NON-PRS CHRONIC ULC UNSP PRT OF R LOW LEG W UNSP SEVERITY SNOMED Code(s): 514330563 (2) Diabetes with skin ulcer Current Visit: No Status: Acute Code(s): E11.622 - TYPE 2 DIABETES MELLITUS WITH OTHER SKIN ULCER; L98.499 - NON-PRESSURE CHRONIC ULCER OF SKIN OF SITES W UNSP SEVERITY SNOMED Code(s): 52559032 (3) Non-pressure chronic ulcer of right calf with fat layer exposed Current Visit: No Status: Acute Code(s): L97.212 - NON-PRESSURE CHRONIC ULCER OF RIGHT CALF W FAT LAYER EXPOSED SNOMED Code(s): 50564506929902038
--- NOTE | 2021-10-15 11:09 | CDI ---
Documentation Clarification Form Date: 10/15/2021 10:53:51 AM From: Leeann De La Vega CCS, CCDS Admit Date: 10/11/2021 06:52:00 PM Patient Name: Shaylee Isaac Visit Number: [id number] Discharge Date: ATTENTION: The Clinical Documentation Specialists (CDI) and [facility] Coding Staff appreciate your assistance in clarifying documentation. Please respond to the clarification below the line at the bottom and electronically sign. The CDI & [facility] Coding staff will review the response and follow-up if needed. Please note: Queries are made part of the Legal Health Record. If you have any questions, please contact the author of this message via ITS. Dr. Jesus Alberto Mccabe. Sheet: Hypertension, uncontrolled on admission is documented in the 10/13 & 10/14 Attending Physician Progress Note without further specificity. Additional clarification of the type of Hypertension is requested. History/Risk Factors per the 10/12 H/P: Asthma, DM II, Fibromyalgia, GERD, Hypertension, Hypothyroidism, Diabetic Nephropathy, Anxiety and current smoker. Clinical Indicators: Presented to the ED on 10/11 with a worsening right lower extremity wound status post previous debridement and IV antibiotics in June 2021. Admit with Diabetic Infection of the Right Foot, Cellulitis 10/11 VS: T 98.2, P 75, R 18 - 20, PO 96 RA, BMI: 37.8 10/11 BP 185/95, 185/99, 182/100 10/12 BP 195/48, 166/89, 170/98, 194/92, 176/104, 162/96 10/13 BP 176/92, 178/104, 134/76, 184/97 10/14 BP 158/86, 180/87, 170/89, 150/78 10/15 BP 151/82, 145/80 Treatment 10/11: IV Na Cl 1,000 mls q1H, IV Vancomycin 250 mls x1, IV Cefepime 100 mls q12H, IV Flagyl 100 mls q8H, IV Na Cl 1,000 mls q20H, po Excedrin (prn: migraine headache), INH Ventolin q4H/prn, po Lopressor 25 mg BID, po Apresoline 50 mg TID 10/12: Heparin 5,000 sq q8H, po Hyrodiuril 25 mg Daily, po Motrin, po Combs 10/13: po Apresoline 75 mg TI, po Lopressor 50 mg BID 10/14 po Apresoline 100 mg TI Can you please further clarify the documented Uncontrolled Hypertension: [ ] Hypertensive Urgency, please specify related condition, if known: [ ] Other specified Hypertensive Condition, please specify: [ ] Other, please specify: [ ] Unable to determine (Template Last Revised: November 2020) Hypertensive Urgency MTDD
[2021-10-15 11:40] LABS: Glucose,Whole Blood 160 mg/dL (75-99)
--- NOTE | 2021-10-15 14:59 | P.PN ---
Subjective Progress Note Date: 10/15/21 She was seen and examined lying in bed. Acute changes. Patient was seen by wound care. Objective - Vital Signs Vital signs: Vital Signs Temp 97.9 F 10/15/21 14:00 Pulse 72 10/15/21 14:00 Resp 18 10/15/21 14:00 BP 169/94 10/15/21 14:00 Pulse Ox 94 L 10/15/21 14:00 Intake & Output 10/14/21 10/15/21 10/15/21 18:59 06:59 18:59 Intake Total 1080 Balance 1080 Weight 99.79 kg Intake: Oral 1080 Other: Voiding Method Toilet Toilet # Voids 2 5 - Exam General appearance: The patient is alert, oriented, appears in no acute distress. HET: Head is normocephalic and atraumatic. Abdomen: Soft, nontender, nondistended.. Extremities: Right lower extremity with dressing clean dry and intact. Palpable right DP and PT pulse with good capillary refill. Neurological: No focal deficits. Strength and sensation are grossly intact. - Labs CBC & Chem 7: 10/13/21 09:47 10/15/21 05:01 Labs: Abnormal Lab Results - Last 24 Hours (Table) 10/14/21 10/14/21 10/14/21 Range/Units 16:37 17:38 21:00 Potassium 3.4 L (3.5-5.1) mmol/L Glucose (70-110) mg/dL POC Glucose (mg/dL) 172 H 178 H (75-99) mg/dL Calcium (8.7-10.3) mg/dL 10/15/21 10/15/21 10/15/21 Range/Units 05:01 06:56 11:38 Potassium 3.4 L (3.5-5.1) mmol/L Glucose 132 H (70-110) mg/dL POC Glucose (mg/dL) 100 H 160 H (75-99) mg/dL Calcium 8.4 L (8.7-10.3) mg/dL Microbiology - Last 24 Hours (Table) 10/11/21 18:11 Gram Stain - Final Leg - Right Wound Culture - Final Proteus vulgaris Methicillin resist S. aureus 10/11/21 18:11 Blood Culture - Preliminary Blood No Growth after 72 hours 10/11/21 18:11 Blood Culture - Preliminary Blood No Growth after 72 hours Assessment and Plan Assessment: 1. Chronic right lower extremity wound 2. Right lower extremity cellulitis 3. Diabetes 4. Venous stasis 5. Morbid Obese Plan: 1. Continue local wound care 2. Dakin solution to the wound bed daily 3. No surgical intervention at this time. Patient may need further debridement skin substitute once infection is controlled. This can be done as an outpatient. Thank you for this consultation. We will sign off at this time. The impression and plan of care has been dictated as directed. Dr. Knox I performed a history and examination of this patient, discussed the same with the dictator. I agree with the dictator's note ,documented as a scribe. Any additional findings or plans will be noted.
[2021-10-15] MEDS ORDERED: POTASSIUM CHLORIDE ER 20 MEQ TAB.ER PO STA (15:27)
[2021-10-15] MEDS: CIPROFLOXACIN HCL 500 MG TAB PO SCH ×2 (16:24→19:53)
[2021-10-15 16:50] LABS: Glucose,Whole Blood 133 mg/dL (75-99)
[2021-10-15] MEDS: DOXYCYCLINE 100 MG CAP PO SCH ×2 (17:32→19:52)
[2021-10-15 18:55] LABS: Magnesium 2.2 mg/dL (1.5-2.4)
--- NOTE | 2021-10-15 20:44 | P.PN ---
Subjective This is a pleasant 61 is old female with past medical history of Asthma, Diabetes Mellitus, Fibromyalgia, GERD, Hypertension, hypothyroidism, diabetic nephropathy Patient was in this hospital last June 2021 for venous insufficiency ulceration with surrounding MRSA cellulitis of the right lower extremity. At that time she's been evaluated by vascular surgery team and infectious disease team. She underwent debridement of the right lower extremity and wound culture came back positive for MRSA and she's been treated with IV vancomycin, and she was discharged with 2 weeks of IV vancomycin with PICC line placement. However patient states that over the last 3-4 days she got infection at the surgery site and that's why she came to the hospital. Her right leg is in dressing and it is hurting so she refused examination. Patient states that she has sinus condition and she uses Benadryl 50 mg daily when necessary also she uses Excedrin and/or Motrin for her pain control, and she try to avoid other medication because she is ALLERGIC to to many. She is aware of the risks of NSAIDs including but not limited to kidney side effects or GI ulceration She denies smoking, illicit drugs. She drinks occasionally Vitas looks stable and patient is afebrile. Labs show an unremarkable CBC, BMP and liver enzymes. Glucose is elevated at 269 and 226. Coronavirus nondetected. Right tibia and fibula x-ray showed no evidence of osteomyelitis, no evidence for fracture. Skin wound Patient already started on IV vancomycin and normal saline Infectious disease and vascular surgery team were already consulted 10/13/2021 Patient with right lower extremity infection and chronic wound that underwent debridement last June, she felt to follow-up with the wound clinic Center. Now presents with similar infection of her right foot wound. Wound culture is growing Proteus and MRSA and consultation is covered with cefepime, Flagyl and IV vancomycin, also she is on normal saline at 100 mL per hour She has potassium of 2.9 which would be replaced per protocol. Blood pressure is better controlled at 134/76 after increasing her metoprolol 25-50 mg and hydralazine 50 mg to 75 mg 3 times a day Vascular surgery team recommended wound care only, no currently any surgical intervention 10/14/2021 Patient is still complaining from pain in her right foot wound, therefore we increased her [place] up to 7.5 mg. Infectious disease and surgery team are fol lowing the patient closely. Her wound is growing Proteus and MRSA and currently T is covered with cefepime and IV vancomycin and continued with gentle hydration at 75 mL/h, we are going to allow her to 50 mL per hour because of uncontrolled hypertension and add hydralazine increased dose from from 75 up to 100 mg 3 times a day. Check labs in the morning 10/15/2021 Patient admitted with right lower extremity infection, recurrent and failed outpatient treatment as patient was not adherent to follow-up with wound center, culture is, and MRSA and Proteus, she was treated with cefepime and IV van comycin. We discussed the case with ID team today and switch and antibiotic to oral Cipro and doxycycline to check for tolerance overnight. Vascular surgery recommend outpatient follow-up for possible debridement after treatment of the infection. Her blood pressure is better controlled however still slightly elevated. Currently on metoprolol, hydralazine and hydrochlorothiazide. She is off IV fluids. Low potassium is been replaced Objective - Vital Signs Vital signs: Vital Signs Temp 98.1 F 10/15/21 07:44 Pulse 84 10/15/21 08:25 Resp 18 10/15/21 07:44 BP 145/80 10/15/21 07:44 Pulse Ox 95 10/15/21 07:44 Intake & Output 10/14/21 10/15/21 10/15/21 18:59 06:59 18:59 Intake Total 1080 Balance 1080 Weight 99.79 kg Intake: Oral 1080 Other: Voiding Method Toilet # Voids 2 5 - Exam -GENERAL: The patient is alert and oriented x3, not in any acute distress. Obese HEENT: Pupils are round and equally reacting to light. EOMI. No scleral icterus. No conjunctival pallor. Normocephalic, atraumatic. No pharyngeal erythema. No t hyromegaly. CARDIOVASCULAR: S1 and S2 present. No murmurs, rubs, or gallops. PULMONARY: Chest is clear to auscultation, no wheezing or crackles. ABDOMEN: Soft, nontender, nondistended, normoactive bowel sounds. No palpable organomegaly. MUSCULOSKELETAL: No joint swelling or deformity. -EXTREMITIES: No cyanosis, clubbing, or pedal edema. Her right leg is in dressing and it is hurting so she refused examination. NEUROLOGICAL: Gross neurological examination did not reveal any focal deficits. SKIN: No rashes. no petechiae. - Labs CBC & Chem 7: 10/13/21 09:47 10/15/21 05:01 Labs: Abnormal Lab Results - Last 24 Hours (Table) 10/14/21 10/14/21 10/14/21 Range/Units 12:34 16:37 17:38 Potassium 3.4 L (3.5-5.1) mmol/L Glucose (70-110) mg/dL POC Glucose (mg/dL) 218 H 172 H (75-99) mg/dL Calcium (8.7-10.3) mg/dL 10/14/21 10/15/21 10/15/21 Range/Units 21:00 05:01 06:56 Potassium 3.4 L (3.5-5.1) mmol/L Glucose 132 H (70-110) mg/dL POC Glucose (mg/dL) 178 H 100 H (75-99) mg/dL Calcium 8.4 L (8.7-10.3) mg/dL Microbiology - Last 24 Hours (Table) 10/11/21 18:11 Gram Stain - Final Leg - Right Wound Culture - Final Proteus vulgaris Methicillin resist S. aureus 10/11/21 18:11 Blood Culture - Preliminary Blood No Growth after 72 hours 10/11/21 18:11 Blood Culture - Preliminary Blood No Growth after 72 hours Assessment and Plan Assessment: Diabetic wound of the right lower extremity, with secondary to Proteus and MRSA Hypertension, uncontrolled on admission Diabetes mellitus with hyperglycemia Diabetic nephropathy History of asthma, History of GERD History of hypothyroidism History of fibromyalgia Obesity with BMI of 37.8 Plan: This is a pleasant 61 years old female who presents with diabetic right lower extremity wound. Continue with antibiotics as per infectious disease consult on follow-up wound culture results. Patient currently on Cipro and doxycycline discontinue IV fluids surgery consult and infectious disease consult Labs and medication were reviewed.. Continue same treatment. Continue with symptomatic treatment. Resume home medication. Monitor lytes and vitals. DVT and GI prophylaxis. Further recommendations depends on the clinical course of the patient DVT prophylaxis: Subcutaneous heparin GI Prophylaxis: Pepcid PT/OT: Pending Prognosis is guarded
[2021-10-15 21:02] LABS: Glucose,Whole Blood 173 mg/dL (75-99)
--- NOTE | 2021-10-15 23:58 | P.PN ---
Progress Note - Text Progress Note Date: 10/15/21 REASON FOR FOLLOWUP: Lower extremity wound and cellulitis. INTERVAL HISTORY: Patient continues to be afebrile. The patient is breathing comfortably. The patient denies having any chest pain. the the patient right leg pain has slightly decreased intensity. the pt deneis abdominal pain or any diarrhea. PHYSICAL EXAMINATION: Her blood pressure is 120/60, pulse is 60, temperature 98.2. She is 95% on room air. General description is a middle-aged female up in the room in no distress. Respiratory system: Unlabored breathing, clear to auscultation anteriorly. Heart S1, S2. Regular rate and rhythm. Abdomen soft, no tenderness. Right leg is currently dressed. No obvious drainage on the dressing. LABS: Wound culture with MRSA and proteus resistant to rocephin. DIAGNOSTIC IMPRESSION AND PLAN: The patient with right lower extremity wound with secondary cellulitis. Culture positive for MRSA and proteus Patient is covered with cefepime and IV vancomycin. pt with multiple allergies, patient Levaquin ALLERGY was elevated blood pressure and doxycycline ALLERGY is not clear, Clinically doubt true ALLERGIES. We'll give her oral Cipro and doxycycline in the hospital, if the patient tolerates She'll be able to go home on oral Cipro and doxycycline in the morning Local care to continue with Santyl. Continue supportive care.
[2021-10-16] MEDS: metroNIDAZOLE 500 MG TAB PO SCH ×2 (02:05→11:23)
[2021-10-16] MEDS: SODIUM CHLORIDE 0.9% 1,000 ML IV SCH (05:07)
[2021-10-16] MEDS ORDERED: VANCOMYCIN TROUGH DUE 1 EACH MISC MISCELLANE ONE (06:00)
[2021-10-16] MEDS: HYDROcodone/APAP 7.5-325MG 1 EACH TAB PO PRN ×2 (06:29→12:51)
[2021-10-16 06:56] LABS: African American GFR (CKD) >90 (>60 ml/min/1.73 sqM); Anion Gap 4 mmol/L; Blood Urea Nitrogen 12 mg/dL (7-17); Calcium 8.5 mg/dL (8.4-10.2); Carbon Dioxide 28 mmol/L (22-30); Chloride 105 mmol/L (98-107); Glucose 93 mg/dL (74-99); Non-African American GFR(CKD) 84 (>60 ml/min/1.73 sqM); Potassium 3.4 mmol/L (3.5-5.1); Sodium 137 mmol/L (137-145)
[2021-10-16] MEDS ORDERED: Potassium Replacement Protocol 1 EACH MISC MISCELLANE PRN (07:02)
[2021-10-16 07:15] LABS: Glucose,Whole Blood 107 mg/dL (75-99)
[2021-10-16] MEDS: LEVOTHYROXINE 137 MCG TAB PO SCH (07:51)
[2021-10-16] MEDS: HEPARIN SODIUM,PORCINE/PF 5,000 UNIT/0.5 ML SYRINGE SQ SCH (07:51)
[2021-10-16] MEDS: INSULIN ASPART (NovoLOG) 100 UNIT/ML VIAL SQ SCH ×2 (08:45→12:49)
[2021-10-16] MEDS: POTASSIUM CHLORIDE ER 20 MEQ TAB.ER PO SCH ×2 (11:16→12:49)
[2021-10-16] MEDS: ASCORBIC ACID 500 MG TAB PO SCH (11:17)
[2021-10-16] MEDS: CIPROFLOXACIN HCL 500 MG TAB PO SCH (11:18)
[2021-10-16] MEDS: SODIUM HYPOCHLORITE 0.25% 480 ML BOT MISCELLANE SCH (11:19)
[2021-10-16] MEDS: COLLAGENASE 250 UNIT/GM OINTMENT 30 GM TUBE TOPICAL SCH (11:19)
[2021-10-16] MEDS: DOXYCYCLINE 100 MG CAP PO SCH (11:20)
[2021-10-16] MEDS: hydrALAZINE HCL 50 MG TAB PO SCH (11:21)
[2021-10-16] MEDS: METOPROLOL TARTRATE 50 MG TAB PO SCH (11:22)
[2021-10-16] MEDS: hydroCHLOROthiazide 25 MG TAB PO SCH (11:22)
[2021-10-16] MEDS: GABAPENTIN 300 MG CAP PO PRN (11:23)
[2021-10-16 11:30] LABS: Glucose,Whole Blood 113 mg/dL (75-99)
--- NOTE | 2021-10-16 12:04 | P.PN ---
Progress Note - Text Progress Note Date: 10/16/21 REASON FOR FOLLOWUP: Lower extremity wound and cellulitis. INTERVAL HISTORY: Patient continues to be afebrile. The patient is breathing comfortably on room air. The patient denies having any chest pain. the the patient right leg pain has slightly decreased intensity.the pt deneis abdominal pain or any diarrhea. Patient has tolerated oral Cipro and doxycycline without any side effects PHYSICAL EXAMINATION: Her blood pressure is 160/87, pulse is 80, temperature 98.2. She is 95% on room air. General description is a middle-aged female up in the room in no distress. Respiratory system: Unlabored breathing, clear to auscultation anteriorly. Heart S1, S2. Regular rate and rhythm. Abdomen soft, no tenderness. Right leg is currently dressed. No obvious drainage on the dressing. LABS: Wound culture with MRSA and proteus resistant to rocephin. DIAGNOSTIC IMPRESSION AND PLAN: The patient with right lower extremity wound with secondary cellulitis. Culture positive for MRSA and proteus Patient with multiple allergies, patient Levaquin ALLERGY was elevated blood pressure and doxycycline ALLERGY is not clear, patient was given Cipro and doxycycline with the patient tolerated without any side effects plan is to continue with these 2 antbiotics for 2 weeks local wound care with Santyl followed by moist dressing advised to follow-up in wound care center next week
[2021-10-16] MEDS: ALBUTEROL NEBULIZED 2.5 MG/3 ML INHALATION PRN (12:37)
[2021-10-16 12:40] VITALS: BP 156/87; RESP 20; TEMP 97.6
[2021-10-16 12:48] VITALS: PULSE 82
--- NOTE | 2021-10-17 22:05 | P.DS ---
Providers Date of admission: 10/11/21 18:52 Attending physician: Mile Del Toro Consults: 10/11/21 18:51 Consult Physician Routine Consulting Provider: Lilliam Keyes Consult Reason/Comments: diabetic wound infection Do you want consulting provider notified?: Yes Primary care physician: Physician Nonstaff Hospital Course: Final Diagnosis Diabetic wound of the right lower extremity, with secondary to Proteus and MRSA Hypertension, uncontrolled Diabetes mellitus type 2 with hyperglycemia Diabetic nephropathy History of asthma, History of GERD History of hypothyroidism History of fibromyalgia Obesity with BMI of 37.8 Discharge Disposition Patient is stable for discharge to follow up with Hospital course This is a 61 year old female who presents to the with complaints of infection at surgical site. Patient was in this hospital last June 2021 for venous insufficiency ulceration with surrounding MRSA cellulitis of the right lower extremity. At that time she's been evaluated by vascular surgery team and infectious disease team. She underwent debridement of the right lower extremity and wound culture came back positive for MRSA and she's been treated with IV vancomycin, and she was discharged with 2 weeks of IV vancomycin with PICC line placement. However patient states that over the last 3-4 days she got infection at the surgery site and that's why she came to the hospital. Her right leg is in dressing and it is hurting so she refused examination on admission. Patient has multiple allergies. Past medical history significant for asthma, diabetes mellitus type 2, GERD, fibromyalgia, hypertension, hypothyroidism, diabetic nephropathy, drinks occasionally. Vitas looks stable and patient is afebrile. Labs show an unremarkable CBC, BMP and liver enzymes. Glucose is elevated at 269 and 226. Coronavirus nondetected. Right tibia and fibula x-ray showed no evidence of osteomyelitis, no evidence for fracture. Patient started on IV vancomycin with consults to ID and vascular surgery. Wound cultures are positive for MRSA and proteus vulgaris. Covered with IV cefepime, IV flagyl, and IV vanco in hospital setting. Patient also given hydration with 0.9 normal saline. Potassium found to be 2.9 during admission, electrolyte was replaced. Metoprolol was increased to 50 mg PO BID and hydralazine increased to 100 mg PO TID. Blood pressure on admission elevated at 195/48. Improved to 156/87. Maintained saturation on room air, afebrile. Patient stable for DC on oral cipro and oral doxycycline recommended by ID services and vascular would like to see outpatient for surgical debridement after infection clears up. Local wound care with Addy followed by moist dressing change daily, advised to follow-up in the wound care center with Dr. Keyes. 10/16/2021 Patient anxious for DC home today. She is alert and oriented x4. Denies chest pain, cough, or shortness of breath. Denies nausea, vomiting, or diarrhea. Reports mild swelling in right foot, however, probably related in part to location of wound wrapping. Patient refused homecare on DC due to her home location, states difficult to get help. She does have help from and daughter who live in the home with her. Lungs are clear, S1 S2 auscultated. Focal neurological exam negative. Foot dressing intact. Vital signs are stable. Antibiotic choice was PO due to multiple allergies and coverage for IV antibiotics. No reactions to antibiotic choice in hospital, patient was monitored overnight on oral antibiotics prior to discharge. Please see medication reconciliation for a list of current medications. Thank you for allowing us to participate in the care of this patient. Patient Condition at Discharge: Good Plan - Discharge Summary Discharge Rx Participant: No New Discharge Prescriptions: New Ciprofloxacin HCl [Cipro] 500 mg PO Q12H 10 Days #20 tab Doxycycline [Vibramycin] 100 mg PO BID 10 Days #20 capsule Potassium Chloride ER [K-Dur 20] 20 meq PO DAILY #30 tab Continue hydroCHLOROthiazide [Hydrodiuril] 25 mg PO DAILY Tiotropium 18 Mcg/Puff [Spiriva] 1 puff INHALATION RT-DAILY Albuterol Nebulized [Ventolin Nebulized] 3 ml INHALATION RT-Q4H PRN PRN Reason: Shortness Of Breath Insulin Aspart [NovoLOG Flexpen] 20 units SQ AC-TID Levothyroxine Sodium [Synthroid] 137 mcg PO DAILY diphenhydrAMINE [Benadryl] 25 mg PO Q4H PRN PRN Reason: Allergy Symptoms Albuterol Inhaler [Ventolin Hfa Inhaler] 2 puff INHALATION RT-QID PRN PRN Reason: Shortness Of Breath Metoprolol Tartrate [Lopressor] 25 mg PO BID 30 Days #60 tablet hydrALAZINE HCL [Apresoline] 50 mg PO TID Collagenase [Santyl Ointment] 1 applic TOPICAL DAILY Insulin Detemir [Levemir Flextouch Pen] 70 units SQ HS Simethicone [Gas-X] 125 mg PO ACHS PRN PRN Reason: Bloating Ibuprofen [Motrin Ib] 800 mg PO Q8H PRN PRN Reason: Migraine Headache Cuvifjx-Ursc-Qmnd [phone] [Excedrin] 2 tab PO Q4HR PRN PRN Reason: Migraine Headache ALPRAZolam [Xanax] 0.25 mg PO BID PRN PRN Reason: Anxiety HYDROcodone/APAP 5-325MG [[place] 5-325] 1 tab PO TID PRN PRN Reason: Pain Gabapentin [Neurontin] 300 mg PO TID PRN PRN Reason: NERVE PAIN Ascorbic Acid [Vitamin C] 1,000 mg PO DAILY Discharge Medication List Albuterol Nebulized [Ventolin Nebulized] 3 ml INHALATION RT-Q4H PRN 06/10/14 [History] Tiotropium 18 Mcg/Puff [Spiriva] 1 puff INHALATION RT-DAILY 06/10/14 [History] hydroCHLOROthiazide [Hydrodiuril] 25 mg PO DAILY 06/10/14 [History] Albuterol Inhaler [Ventolin Hfa Inhaler] 2 puff INHALATION RT-QID PRN 07/09/21 [History] Insulin Aspart [NovoLOG Flexpen] 20 units SQ AC-TID 07/09/21 [History] Insulin Detemir [Levemir Flextouch Pen] 70 units SQ HS 07/09/21 [History] Levothyroxine Sodium [Synthroid] 137 mcg PO DAILY 07/09/21 [History] diphenhydrAMINE [Benadryl] 25 mg PO Q4H PRN 07/09/21 [History] Metoprolol Tartrate [Lopressor] 25 mg PO BID 30 Days #60 tablet 07/18/21 [Rx] ALPRAZolam [Xanax] 0.25 mg PO BID PRN 10/11/21 [History] Ascorbic Acid [Vitamin C] 1,000 mg PO DAILY 10/11/21 [History] Drbcpvq-[id number]-Puxl [phone] [Excedrin] 2 tab PO Q4HR PRN 10/11/21 [History] Collagenase [Santyl Ointment] 1 applic TOPICAL DAILY 10/11/21 [History] Gabapentin [Neurontin] 300 mg PO TID PRN 10/11/21 [History] HYDROcodone/APAP 5-325MG [[place] 5-325] 1 tab PO TID PRN 10/11/21 [History] Ibuprofen [Motrin Ib] 800 mg PO Q8H PRN 10/11/21 [History] Simethicone [Gas-X] 125 mg PO ACHS PRN 10/11/21 [History] hydrALAZINE HCL [Apresoline] 50 mg PO TID 10/11/21 [History] Ciprofloxacin HCl [Cipro] 500 mg PO Q12H 10 Days #20 tab 10/16/21 [Rx] Doxycycline [Vibramycin] 100 mg PO BID 10 Days #20 capsule 10/16/21 [Rx] Potassium Chloride ER [K-Dur 20] 20 meq PO DAILY #30 tab 10/16/21 [Rx] Follow up Appointment(s)/Referral(s): Preston Knox DO [STAFF PHYSICIAN] - As Needed Nonstaff,Physician [Primary Care Provider] - 1 Week Lilliam Keyes MD [STAFF PHYSICIAN] - 10/23/21 1:00 pm ([facility] [phone]) Ambulatory/Diagnostic Orders: Basic Metabolic Panel [LAB.AMB] Time Frame: 3 Days, Location: None Selected Patient Instructions/Handouts: MRSA (Methicillin-Resistant Staphylococcus Aureus) (DC) Activity/Diet/Wound Care/Special Instructions: Local wound care with Santyl followed by moist dressing change daily, advised to follow-up in the wound care center with Dr. Keyes next week, call [phone] to make an appointment Please add PCP to follow up list and will need a hospital follow up in 1 to 2 days Discharge Disposition: HOME SELF-CARE
== END 2021-10-16 16:30 | disposition home or self-care (01) | DRG 638 ==
LOC: EC 14:53 → 4SSUR 18:52
PROVIDERS: ADMIT Hospitalist; ATTEND Hospitalist
DX: E11.622 Type 2 diabetes mellitus with other skin ulcer (principal); L97.212 Non-pressure chronic ulcer of right calf with fat layer exposed; L03.115 Cellulitis of right lower limb; E11.65 Type 2 diabetes mellitus with hyperglycemia; Z79.4 Long term (current) use of insulin; B95.62 Methicillin resistant Staphylococcus aureus infection as the cause of diseases classified elsewhere; E11.628 Type 2 diabetes mellitus with other skin complications; B96.4 Proteus (mirabilis) (morganii) as the cause of diseases classified elsewhere; K21.9 Gastro-esophageal reflux disease without esophagitis; E03.9 Hypothyroidism, unspecified; E11.21 Type 2 diabetes mellitus with diabetic nephropathy; E66.01 Morbid (severe) obesity due to excess calories; F17.210 Nicotine dependence, cigarettes, uncomplicated; Z68.37 Body mass index [BMI] 37.0-37.9, adult; J45.909 Unspecified asthma, uncomplicated; F41.9 Anxiety disorder, unspecified; I10 Essential (primary) hypertension; I87.8 Other specified disorders of veins; I87.309 Chronic venous hypertension (idiopathic) without complications of unspecified lower extremity; M79.7 Fibromyalgia; Z20.822 Contact with and (suspected) exposure to COVID-19; Z79.890 Hormone replacement therapy; Z79.899 Other long term (current) drug therapy; Z86.14 Personal history of Methicillin resistant Staphylococcus aureus infection; Z88.1 Allergy status to other antibiotic agents; Z88.5 Allergy status to narcotic agent; Z88.0 Allergy status to penicillin; Z88.2 Allergy status to sulfonamides; Z88.8 Allergy status to other drugs, medicaments and biological substances; Z98.890 Other specified postprocedural states
CPT/HCPCS: 36415; 80048; 80053; 80202; 83605; 83735; 84132; 85025; 87040; 87070; 87077; 87186; 87205; 87635; 94640; 99284